=== PATIENT | female | born 1955 | race Caucasian/White ===

== ENCOUNTER 2020-08-27 21:16 | Inpatient (IN) ==
[2020-08-27] MEDS ORDERED: PIPERACILL/TAZOBAC CONSULT ACTIVE PRN (21:38)
[2020-08-27] MEDS ORDERED: PIPERACILLIN/TAZOBACTAM 4.5 GM/120 ML BAG IV ONE (21:38)
[2020-08-27] MEDS ORDERED: SODIUM CHLORIDE 0.9% 1000ML 1,000 ML IV SCH (21:45)
[2020-08-27 21:59] LABS: Basophils # (auto) 0.01 K/uL (0-0.2); Basophils % (auto) 0.1 %; Eosinophils % (auto) 2.8 %; Hemoglobin 8.5 g/dL (12.0-16.0); Immature Granulocytes # (auto) 0.02 K/uL (0.00-0.02); Immature Granulocytes % (auto) 0.2 %; Lymphocytes # (auto) 0.47 K/uL (1.2-3.4); Lymphocytes % (auto) 4.4 %; Mean Corpuscular Hemoglobin 31.5 pg (25-34); Mean Corpuscular Hgb Conc 32.7 g/dL (32-36); Mean Corpuscular Volume 96.3 fL (80-100); Mean Platelet Volume 10.2 fL (7.4-10.4); Monocytes # (auto) 0.27 K/uL (0.11-0.59); Monocytes % (auto) 2.5 %; Neutrophils # (auto) 9.63 K/uL (1.4-6.5); Platelet Count 263 K/uL (130-400); RDW Coefficient of Variation 19.3 % (11.5-14.5); RDW Standard Deviation 67.7 fL (36.4-46.3)
[2020-08-27 22:10] LABS: INR 1.2 (0.9-1.1); Partial Thromboplastin Time 26.6 Seconds (21.0-31.0); Prothrombin Time 11.6 Seconds (9.0-12.0)
[2020-08-27 22:24] LABS: Alanine Aminotransferase 30 U/L (12-78); Albumin Level 2.4 gm/dl (3.4-5.0); Aspartate Aminotransferase 33 U/L (15-37); BUN Creatinine Ratio 24.1 (10-20); Blood Urea Nitrogen 17 mg/dl (7-18); Calcium 9.4 mg/dl (8.5-10.1); Carbon Dioxide 26 mmol/L (21-32); Chloride 101 mmol/L (98-107); Creatinine Clr Calc Pharmacy 87.4 ml/min; Est GFR (African American) 104.3; Glucose 158 mg/dl (70-99); Magnesium 1.9 mg/dl (1.8-2.4); Potassium 3.5 mmol/L (3.5-5.1); Sodium 135 mmol/L (136-145)
[2020-08-27] MEDS ORDERED: VANCOMYCIN HCL 1,500 MG in SODIUM CHLORIDE 0.9% 500 ML IV ONE (22:27)
[2020-08-27] MEDS ORDERED: VANCOMYCIN CONSULT ACTIVE PRN (22:27)
[2020-08-27] MEDS ORDERED: VANCOMYCIN HCL MG in SODIUM CHLORIDE 0.9% 500 ML IV ONE (22:27)
[2020-08-27 22:29] LABS: Albumin Globulin Ratio 0.5 (0.9-2); Alkaline Phosphatase 90 U/L (45-117); Bilirubin,Total 0.5 mg/dl (0.2-1); Total Protein 7.4 gm/dl (6.4-8.2); Troponin I < 0.015 ng/ml (0-0.045)
--- NOTE | 2020-08-27 22:38 | Emergency Department Note ---
Impression & Plan Pneumonia, Breathlessness, Acute respiratory failure with hypoxia ED Provider Note Provider: Doni Markham MD DATE OF SERVICE: 08/27/2020 CHIEF COMPLAINT: Shortness of breath, weakness HISTORY OF PRESENT ILLNESS: Patient is a 65-year-old female history of diabetes, COPD, pneumonia with recent hospitalization, right upper lobe lung cancer currently on chemotherapy presenting today the ambulance from home due to worsening shortness of breath and weakness at home. Patient was here over the weekend and treated for pneumonia transition to Levaquin and has been home for approximately 2 days. Patient states she was sent home on 2 L of oxygen which has been using. Patient states she cannot walk across her living room and becomes very short of breath and certainly having any difficulty going up the stairs to the only bathroom in the house. No fevers reported. Denies falling or syncope. Denies significant chest pain. Denies fever. States she has a bit of a cough. Has been using 2 L but was informed by home health not to increase this oxygen flow at home. States she has been eating and drinking well. Denies significant swelling. Denies sick contact. Patient states she has been taking Levaquin prescribed at discharge. REVIEW OF SYSTEMS: A total of 10 review of systems was obtained and negative except as stated above in the HPI. PAST MEDICAL HISTORY: As noted above MEDICATIONS: Reviewed home medication list, not on anticoagulation SOCIAL HISTORY: Former smoker, lives at home by herself PHYSICAL EXAM: GENERAL: alert and oriented uncertain with nasal cannula oxygen in place Head: normocephalic and atraumatic EYES: No injection, discharge or icterus. NECK: Trachea midline. Supple. ENT: Mucous membranes pink and moist. LUNGS: Airway patent. No retractions. Breath sounds some diffuse wheeze and mild tachypnea HEART: Regular tachycardic rate and rhythm. No chest wall tenderness with a left upper chest wall port in place ABDOMEN: Soft and non-tender, without guarding or rebound. SKIN: Acyanotic, warm, dry, without rashes EXTREMITIES: Without swelling, tenderness or deformity NEUROLOGICAL: No focal deficits. No aphasia. No facial droop or slurred speech. EK bpm sinus tachycardia. No PVC or PAC. No ST segment elevation noted with some question of V2 V3 slight ST depression. Normal QTC. CONTINUOUS CARDIAC MONITORING: was ordered and showed a heart rate of 100s-120s bpm in sinus tachycardia 1 view chest x-ray shows per my interpretation continued and slightly worsened right greater than left pulmonary infiltrates in the parenchyma without free air under the diaphragm. No pneumothorax visualized. Patient's laboratory studies and imaging reviewed. Differential includes Infection, dehydration, metabolic abnormality, hypo/hyper glycemia, electrolyte disturbance, anemia, hypoxia, cardiac sources, intracerebral event, toxicologic, neurologic, as well as other pathologies. IMPRESSION/MEDICAL DECISION MAKING: Patient presents recently seen here for pneumonia history of lung cancer on chemotherapy worsening shortness of breath. Significantly hypoxic at home and hypoxic here on room air. EMS evidently found the patient to be at least below the 80s on her 2 L. Increased now on 4 L and satting in the low 90s with some improvement of symptoms. Febrile for EMS at 38.1 Celsius with a temperature 37.6 here. States has been eating and drinking normally. No significant focal deficit. Denies significant chest pain. Troponin is negative and EKG without STEMI although there is some question of some slight precordial ST depression. Given some IV fluid hydration given Zosyn and vancomycin given recent hospitalization and chest x-ray concerning for persistent but slightly worsened pneumonia right greater than left. CT scan was completed to look for possible PE given the increased oxygen usage and her tachycardia. Given a DuoNeb. Electrolytes and renal function appears stable. New Covid test was sent and negative today. VBG sent. Patient does not appear encephalopathic or altered today. Blood work a white count of 10.7 up from 7 anemia slightly improved today at 8.5. pH is 7.45 without CO2 retention noted. No significant renal dysfunction appreciated. Negative troponin. EKG question some slight precordial ST depression but again the patient not having active chest pain I doubt acute ACS at this time. Feeling improved with some increased nasal cannula oxygen at 4 L. Febrile for EMS and temperature of 37.6 Celsius here. X-ray per my interpretation shows continued and slightly worsened right greater than left pulmonary infiltrates concerning with increased ox requirement for possible worsening pneumonia process. Has been on Levaquin as an outpatient. Given a dose of vancomycin and Zosyn here for broad antimicrobial coverage given her worsening as an outpatient. Repeat Covid test and flu test was sent and negative. Procalcitonin ordered and not significantly elevated. Doubt sepsis. No evidence of liver dysfunction. Lactate not significantly elevated. Blood cultures were ordered. DuoNeb ordered. CT scan of the chest was completed exclude acute PE given increased ox requirements. Patient has been on outpatient chemotherapy she reports. Not neutropenic here. CT scan per stat read as below with right upper lung mass persistent without evidence of PE. Bilateral pulmonary opacities are noted again question pneumonia. Will cover broadly with vancomycin and Zosyn as she was improving on this while in the hospital. Covid test was negative as is influenza and RSV tonight. Given new increased oxygen requirement discussed the patient further evaluation here. Question if she has some worsening of her underlying pneumonia process while home on the Levaquin and again broadened antibiotics here today. Patient was feeling improved with increased oxygen here. Discussed with the hospitalist for further evaluation as an inpatient. DIAGNOSIS: Shortness of breath, hypoxia, pneumonia DISPOSITION: Hospitalist will evaluate Patient was agreeable with this plan. Critical Care I have personally spent 33 minutes of critical care time in the direct management of this patient. This includes bedside care, interpretation of diagnostic studies, and testing, discussion with consultants, patient, and family members, and other required patient management activities. These 33 minutes is in excess of all separately billable procedures. Preliminary Findings Only See Final Report For Complete Findings CTA CHEST: No pulmonary embolus. 5 cm mass lesion in the right upper hemithorax. Bilateral pulmonary opacities that could be from edema, pneumonia or other infiltrative process. Pulmonary emphysema/fibrosis. Mediastinal and hilar adenopathy. Mild cardiomegaly. Mild right pleural thickening and calcification Mild fatty liver. Splenomegaly. Port-A-Cath. Surgical clips in the abdomen. Mild elevation left diaphragm Radiologist: Fany Khan M.D. Study ready at 23:01 and initial results transmitted at 23:16 Past Med/Surg History Medical History (Updated 08/27/20 @ 22:43 by Doni Markham M.D.) Asthma Cardiac murmur Trace to mild sclerotic changes and regurgitation noted on 2019 echo COPD (chronic obstructive pulmonary disease) Diabetes mellitus, type 2 Exertional shortness of breath GERD (gastroesophageal reflux disease) Hyperlipidemia LAD (lymphadenopathy), mediastinal Seasonal allergies Squamous cell carcinoma of lung, stage III (10/30/19) UTI (urinary tract infection) FREQUENT Surgical History H/O wrist surgery LEFT History of ankle surgery RT (X2) History of bilateral tubal ligation History of bronchoscopy (10/30/19) EBUS History of cholecystectomy History of esophagogastroduodenoscopy (EGD) History of lung biopsy (04/01/20) History of tonsillectomy History of tooth extraction Family History Mother , Passed age 60 of CHF/Diabetes Complications Family history of diabetes mellitus Diabetes Father , Passed age 56 of CHF Diabetes Sister , Passed age 60 of SC Myocardial infarction Sister , Passed age 60 of diabetic/kidney complications No problems noted. Sister , Passed age 61 of SC Myocardial infarction Sister No problems noted. Sister No problems noted. Brother , Passed age 21 of accident No problems noted. Brother , Passed in 40's of SC No problems noted. Brother , Passed age 36 of unknown No problems noted. Daughter No problems noted. Daughter No problems noted. Daughter No problems noted. 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 Feels Safe at Home: Yes Assistive Devices: None Allergies Allergies Allergy/AdvReac Type Severity Reaction Status Date / Time cephalexin Allergy Intermediate ITCHING Verified 08/22/20 00:43 Home Meds Home Medications Medication Instructions Recorded Confirmed albuterol sulfate 1 inh INHALATION QID PRN 10/28/19 08/27/20 cholecalciferol (vitamin D3) 5,000 unit PO QAM 10/28/19 08/27/20 [Vitamin D3] fluticasone propion-salmeterol 1 inh INHALATION BID 04/01/20 08/27/20 [Advair Diskus] atorvastatin 10 mg tablet 10 mg PO DAILY 06/15/20 08/27/20 ondansetron HCl 8 mg tablet 8 mg PO Q8H 06/22/20 08/27/20 prochlorperazine maleate 10 mg 10 mg PO Q6H PRN 06/22/20 08/27/20 tablet omeprazole 20 mg tablet,delayed 20 mg PO DAILY 07/13/20 08/27/20 release Flovent HFA 1 puff INHALATION BID PRN 08/22/20 08/27/20 metformin 500 mg PO DAILY 08/27/20 08/27/20 Previous Rx's Medication Instructions Recorded Lactobacillus acidoph-L.bulgar 1 tab PO BID #30 tab 08/25/20 [Lactinex] ferrous sulfate 325 mg PO BID 30 Days #60 tab 08/25/20 levalbuterol HCl 1.25 mg NEB Q4H PRN 30 Days #100 ea 08/25/20 levofloxacin 750 mg PO DAILY@1100 5 Days #5 tab 08/25/20 Results & Data (ED) Vital Signs Vital Signs - 24 hr 08/27/20 21:26 08/27/20 21:51 08/27/20 22:10 Temperature 37.6 C H Temperature Source Oral Pulse Rate 125 H Pulse Rate [Right Apical] Respiratory Rate 28 H 24 Respiratory Effort / Characteristics SOB on Exertion Non-Labored Respiratory Depth Shallow Blood Pressure 112/63 Blood Pressure Mean 79 Pulse Oximetry 95 91 95 Oxygen Delivery Method Nasal Cannula Nasal Cannula Nasal Cannula Oxygen Flow Rate 4 4 4 Sepsis Recent Fever Within 48 Hours Yes Sepsis New/Unexplained Change in Mental Status N/A Sepsis Action Taken by Nursing No Action Required Oxygen Flow Rate - Titration 4 Pulse Oximetry Post Tiitration 95 08/27/20 22:33 08/27/20 23:01 08/27/20 23:05 Temperature Temperature Source Pulse Rate Pulse Rate [Right Apical] 124 H Respiratory Rate 24 20 34 H Respiratory Effort / Characteristics Non-Labored Spontaneous Respiratory Depth Blood Pressure Blood Pressure Mean Pulse Oximetry 96 96 78 L Oxygen Delivery Method Nasal Cannula Nasal Cannula Room Air Oxygen Flow Rate 4 2 Sepsis Recent Fever Within 48 Hours Sepsis New/Unexplained Change in Mental Status Sepsis Action Taken by Nursing Oxygen Flow Rate - Titration Pulse Oximetry Post Tiitration 08/27/20 23:50 Temperature 37.1 C Temperature Source Oral Pulse Rate Pulse Rate [Right Apical] Respiratory Rate Respiratory Effort / Characteristics Respiratory Depth Blood Pressure Blood Pressure Mean Pulse Oximetry Oxygen Delivery Method Oxygen Flow Rate Sepsis Recent Fever Within 48 Hours Sepsis New/Unexplained Change in Mental Status Sepsis Action Taken by Nursing Oxygen Flow Rate - Titration Pulse Oximetry Post Tiitration Laboratory Data Result diagrams: 08/27/20 21:45 08/27/20 21:45 Lab Results 08/27/20 08/27/20 08/27/20 Range/Units 21:45 21:45 21:45 WBC 10.70 (4.8-10.8) K/uL RBC 2.70 L (4.2-5.4) M/uL Hgb 8.5 L (12.0-16.0) g/dL Hct 26.0 L (37-47) % MCV 96.3 (80-100) fL MCH 31.5 (25-34) pg MCHC 32.7 (32-36) g/dL RDW Std Deviation 67.7 H (36.4-46.3) fL RDW Coeff of Teresa 19.3 H (11.5-14.5) % Plt Count 263 (130-400) K/uL MPV 10.2 (7.4-10.4) fL Immature Gran % (Auto) 0.2 % Neut % (Auto) 90.0 % Lymph % (Auto) 4.4 % Dougherty % (Auto) 2.5 % Eos % (Auto) 2.8 % Baso % (Auto) 0.1 % Neut # (Auto) 9.63 H (1.4-6.5) K/uL Lymph # (Auto) 0.47 L (1.2-3.4) K/uL Dougherty # (Auto) 0.27 (0.11-0.59) K/uL Eos # (Auto) 0.30 (0-0.5) K/uL Baso # (Auto) 0.01 (0-0.2) K/uL Immature Gran # (Auto) 0.02 (0.00-0.02) K/uL PT 11.6 (9.0-12.0) Seconds INR 1.2 H (0.9-1.1) APTT 26.6 (21.0-31.0) Seconds PTT Ratio 1.0 VBG pH (7.36-7.41) VBG pCO2 (38-50) mmHg VBG pO2 mmHg VBG HCO3 mmol/L VBG O2 Saturation % VBG Base Excess mEq/L Barometric Pressure mm/Hg Sodium 135 L (136-145) mmol/L Potassium 3.5 (3.5-5.1) mmol/L Chloride 101 (98-107) mmol/L Carbon Dioxide 26 (21-32) mmol/L Anion Gap 8.0 (3-11) BUN 17 (7-18) mg/dl Creatinine 0.71 (0.6-1.2) mg/dl Est Cr Clr Drug Dosing 87.4 ml/min Est GFR ( Amer) 104.3 Est GFR (Non-Af Amer) 90.0 BUN/Creatinine Ratio 24.1 H (10-20) Glucose 158 H (70-99) mg/dl Lactate (0.4-2.0) mmol/L Calcium 9.4 (8.5-10.1) mg/dl Magnesium 1.9 (1.8-2.4) mg/dl Total Bilirubin 0.5 (0.2-1) mg/dl AST 33 (15-37) U/L ALT 30 (12-78) U/L Alkaline Phosphatase 90 (45-117) U/L Troponin I < 0.015 (0-0.045) ng/ml NT-Pro-B Natriuret Pep 213 (0-900) pg/ml Total Protein 7.4 (6.4-8.2) gm/dl Albumin 2.4 L (3.4-5.0) gm/dl Globulin 5.0 H (2.5-4.0) gm/dl Albumin/Globulin Ratio 0.5 L (0.9-2) Procalcitonin (0-0.5) ng/ml COVID-19 Eval Order SARS-CoV-2 (PCR) (Negative) Influenza Type A (PCR) (Neg) Influenza Type B (PCR) (Neg) RSV (RT-PCR) (Neg) 08/27/20 08/27/20 08/27/20 Range/Units 21:45 22:15 22:15 WBC (4.8-10.8) K/uL RBC (4.2-5.4) M/uL Hgb (12.0-16.0) g/dL Hct (37-47) % MCV (80-100) fL MCH (25-34) pg MCHC (32-36) g/dL RDW Std Deviation (36.4-46.3) fL RDW Coeff of Teresa (11.5-14.5) % Plt Count (130-400) K/uL MPV (7.4-10.4) fL Immature Gran % (Auto) % Neut % (Auto) % Lymph % (Auto) % Dougherty % (Auto) % Eos % (Auto) % Baso % (Auto) % Neut # (Auto) (1.4-6.5) K/uL Lymph # (Auto) (1.2-3.4) K/uL Dougherty # (Auto) (0.11-0.59) K/uL Eos # (Auto) (0-0.5) K/uL Baso # (Auto) (0-0.2) K/uL Immature Gran # (Auto) (0.00-0.02) K/uL PT (9.0-12.0) Seconds INR (0.9-1.1) APTT (21.0-31.0) Seconds PTT Ratio VBG pH (7.36-7.41) VBG pCO2 (38-50) mmHg VBG pO2 mmHg VBG HCO3 mmol/L VBG O2 Saturation % VBG Base Excess mEq/L Barometric Pressure mm/Hg Sodium (136-145) mmol/L Potassium (3.5-5.1) mmol/L Chloride (98-107) mmol/L Carbon Dioxide (21-32) mmol/L Anion Gap (3-11) BUN (7-18) mg/dl Creatinine (0.6-1.2) mg/dl Est Cr Clr Drug Dosing ml/min Est GFR ( Amer) Est GFR (Non-Af Amer) BUN/Creatinine Ratio (10-20) Glucose (70-99) mg/dl Lactate 1.7 (0.4-2.0) mmol/L Calcium (8.5-10.1) mg/dl Magnesium (1.8-2.4) mg/dl Total Bilirubin (0.2-1) mg/dl AST (15-37) U/L ALT (12-78) U/L Alkaline Phosphatase (45-117) U/L Troponin I (0-0.045) ng/ml NT-Pro-B Natriuret Pep (0-900) pg/ml Total Protein (6.4-8.2) gm/dl Albumin (3.4-5.0) gm/dl Globulin (2.5-4.0) gm/dl Albumin/Globulin Ratio (0.9-2) Procalcitonin (0-0.5) ng/ml COVID-19 Eval Order CovFluRsv at [facility] SARS-CoV-2 (PCR) NEGATIVE (Negative) Influenza Type A (PCR) Negative (Neg) Influenza Type B (PCR) Negative (Neg) RSV (RT-PCR) Negative (Neg) 08/27/20 08/27/20 Range/Units 22:28 22:28 WBC (4.8-10.8) K/uL RBC (4.2-5.4) M/uL Hgb (12.0-16.0) g/dL Hct (37-47) % MCV (80-100) fL MCH (25-34) pg MCHC (32-36) g/dL RDW Std Deviation (36.4-46.3) fL RDW Coeff of Teresa (11.5-14.5) % Plt Count (130-400) K/uL MPV (7.4-10.4) fL Immature Gran % (Auto) % Neut % (Auto) % Lymph % (Auto) % Dougherty % (Auto) % Eos % (Auto) % Baso % (Auto) % Neut # (Auto) (1.4-6.5) K/uL Lymph # (Auto) (1.2-3.4) K/uL Dougherty # (Auto) (0.11-0.59) K/uL Eos # (Auto) (0-0.5) K/uL Baso # (Auto) (0-0.2) K/uL Immature Gran # (Auto) (0.00-0.02) K/uL PT (9.0-12.0) Seconds INR (0.9-1.1) APTT (21.0-31.0) Seconds PTT Ratio VBG pH 7.45 H (7.36-7.41) VBG pCO2 42 (38-50) mmHg VBG pO2 27 mmHg VBG HCO3 28 mmol/L VBG O2 Saturation < 60.0 % VBG Base Excess 3.6 mEq/L Barometric Pressure 735.2 mm/Hg Sodium (136-145) mmol/L Potassium (3.5-5.1) mmol/L Chloride (98-107) mmol/L Carbon Dioxide (21-32) mmol/L Anion Gap (3-11) BUN (7-18) mg/dl Creatinine (0.6-1.2) mg/dl Est Cr Clr Drug Dosing ml/min Est GFR ( Amer) Est GFR (Non-Af Amer) BUN/Creatinine Ratio (10-20) Glucose (70-99) mg/dl Lactate (0.4-2.0) mmol/L Calcium (8.5-10.1) mg/dl Magnesium (1.8-2.4) mg/dl Total Bilirubin (0.2-1) mg/dl AST (15-37) U/L ALT (12-78) U/L Alkaline Phosphatase (45-117) U/L Troponin I (0-0.045) ng/ml NT-Pro-B Natriuret Pep (0-900) pg/ml Total Protein (6.4-8.2) gm/dl Albumin (3.4-5.0) gm/dl Globulin (2.5-4.0) gm/dl Albumin/Globulin Ratio (0.9-2) Procalcitonin 0.22 (0-0.5) ng/ml COVID-19 Eval Order SARS-CoV-2 (PCR) (Negative) Influenza Type A (PCR) (Neg) Influenza Type B (PCR) (Neg) RSV (RT-PCR) (Neg) Administered Medications Vancomycin HCl 1,500 mg/ (Sodium Chloride) 530 mls @ 200 mls/hr IV NOW ONE Stop: 08/28/20 01:05 Last Admin: 08/27/20 23:07 Dose: 200 mls/hr Documented by: [id number] Magnesium Sulfate/Dextrose (Magnesium Sulfate / D5w) 1 gm in 100 mls @ 50 mls/hr IV ONE STA Stop: 08/28/20 01:53 Last Admin: 08/28/20 00:21 Dose: 50 mls/hr Documented by: [id number] Discontinued Medications Acetaminophen (Acetaminophen 500 Mg Tab) 1,000 mg PO NOW STA Stop: 08/27/20 23:40 Last Admin: 08/27/20 23:50 Dose: 1,000 mg Documented by: [id number] Albuterol (Albut/Ipratrop 3mg/0.5mg Neb 3 Ml Vial) 3 ml NEB NOW STA Stop: 08/27/20 22:40 Last Admin: 08/27/20 23:05 Dose: 3 ml Documented by: [id number] Sodium Chloride (Nss 1000ml) 1,000 mls @ 999 mls/hr IV .[id number] ROSANNE Stop: 08/27/20 22:45 Last Infusion: 08/28/20 00:13 Dose: 0 mls/hr Documented by: [id number] Admin: 08/27/20 22:31 Dose: 999 mls/hr Documented by: [id number] Piperacillin Sod/Tazobactam Sod (Zosyn) 4.5 gm in 120 mls @ 240 mls/hr IV NOW ONE Stop: 08/27/20 22:07 Last Infusion: 08/27/20 23:08 Dose: 0 mls/hr Documented by: [id number] Admin: 08/27/20 22:31 Dose: 240 mls/hr Documented by: [id number] Ioversol (Optiray 320 125ml) 114 ml IV ONCE ONE Stop: 08/27/20 22:52 Last Admin: 08/27/20 22:51 Dose: 114 ml Documented by: [id number] Methylprednisolone (Methylprednisolone 40 Mg/Ml Vial) 40 mg IV ONE STA Stop: 08/27/20 23:58 Last Admin: 08/28/20 00:21 Dose: 40 mg Documented by: [id number] Potassium Chloride (Potassium Chloride 10 Meq Tabcr) 50 meq PO NOW STA Stop: 08/27/20 23:52 Last Admin: 08/28/20 00:21 Dose: 50 meq Documented by: [id number] Discharge Plan Visit Data Chief Complaint: Shortness of Breath/Dyspnea Stated Complaint: SOB ED Provider: Doni Markham Discharge Problem: Pneumonia, Breathlessness, Acute respiratory failure with hypoxia Patient Disposition: Being Evaluated by Hospitalist Forms Stand Alone Forms: My [facility] Prescriptions Prescriptions: No Action atorvastatin 10 mg tablet 10 mg PO DAILY RF: 0 ondansetron HCl 8 mg tablet 8 mg PO Q8H RF: 0 prochlorperazine maleate [Compazine] 10 mg tablet 10 mg PO Q6H PRN (Reason: Nausea) RF: 0 omeprazole 20 mg tablet,delayed release (DR/EC) 20 mg PO DAILY RF: 0 albuterol sulfate 90 mcg/actuation Hfa Aerosol Inhaler 1 inh INHALATION QID PRN (Reason: Shortness Of Breath Or Wheezing) RF: 0 cholecalciferol (vitamin D3) [Vitamin D3] 125 mcg (5,000 unit) Tablet 5,000 unit PO QAM RF: 0 fluticasone propion-salmeterol [Advair Diskus] 500-50 mcg/dose Blister With Device 1 inh INHALATION BID RF: 0 Flovent HFA 110 mcg/actuation HFA aerosol inhaler 1 puff INHALATION BID PRN (Reason: asthma) RF: 0 levofloxacin 750 mg Tablet 750 mg PO DAILY@1100 5 Days Qty: 5 RF: 0 ferrous sulfate 325 mg (65 mg iron) Tablet,Delayed Release (Dr/Ec) 325 mg PO BID 30 Days Qty: 60 RF: 0 levalbuterol HCl 1.25 mg/0.5 mL Solution For Nebulization 1.25 mg NEB Q4H PRN (Reason: shortness of breath or wheezing) 30 Days Qty: 100 RF: 0 Lactinex 1 million cell tablet,chewable 1 tab PO BID Qty: 30 RF: 0 metformin 500 mg tablet extended release 24 hr 500 mg PO DAILY RF: 0 Referrals Referrals: Antonio Diallo [Primary Care Provider] - Discharge Problem: Pneumonia Qualifiers: Pneumonia type: due to unspecified organism Laterality: bilateral Lung location: unspecified part of lung Qualified Code(s): J18.9 - Pneumonia, unspecified organism
[2020-08-27] MEDS ORDERED: ALBUT/IPRATROP 3MG/0.5MG NEB 3 ML VIAL NEB STA (22:39)
[2020-08-27 22:42] LABS: Base Excess VBG 3.6 mEq/L; HCO3 VBG 28 mmol/L; PCO2 VBG 42 mmHg (38-50); PO2 VBG 27 mmHg; pH VBG 7.45 (7.36-7.41)
[2020-08-27 22:44] LABS: Oxygen Saturation VBG < 60.0 %
[2020-08-27] MEDS ORDERED: OPTIRAY 320 125ml IV ONE (22:51)
[2020-08-27 23:02] LABS: Influenza A virus by PCR Negative (Neg); Influenza B virus by PCR Negative (Neg); RSV by PCR Negative (Neg); SARS CoV2 RNA(COVID-19) InHosp NEGATIVE (Negative)
[2020-08-27] MEDS ORDERED: ACETAMINOPHEN 500 MG TAB PO STA (23:39)
[2020-08-27] MEDS ORDERED: LEVALBUTEROL 1.25MG/0.5ML NEB INH SCH (23:45)
[2020-08-27] MEDS ORDERED: IPRATROPIUM BROMIDE NEB SOLN 0.02% 2.5 ML VIAL INH SCH (23:45)
[2020-08-27] MEDS ORDERED: XOPENEX/ATROVENT 1.25mg/0.5MG NEB COMBO NEB STA (23:50)
[2020-08-27] MEDS ORDERED: methylPREDNISolone 40 MG in SYRINGE 0 ML IV STA (23:50)
[2020-08-27] MEDS ORDERED: POTASSIUM CHLORIDE 10 MEQ TABCR PO STA (23:51)
[2020-08-27] MEDS ORDERED: MAGNESIUM SULFATE / D5W 1 GM/100 ML BAG IV STA (23:54)
[2020-08-28 00:36] LABS: NT Pro B Type Natriuretic Pept 213 pg/ml (0-900)
[2020-08-28] MEDS ORDERED: POTASSIUM CHLORIDE 40 MEQ in SODIUM CHLORIDE 0.9% 1000ML 1,000 ML IV STA (00:50)
--- NOTE | 2020-08-28 00:52 | History & Physical Report ---
Date of Service August 28, 2020 Assessment & Plan (1) Acute respiratory failure with hypoxia: Acute on chronic Secondary to COPD exacerbation secondary to HCAP, protracted disease Recent confinement for bilateral pneumonia status post Levaquin Rx Severe sepsis in an immunocompromised patient SIRS plus hypoxemia secondary to above hx NSCLC sp chemoradiation DM2 on oral medications, well-controlled as of recent hemoglobin A1c of 6.22 August 2020 hyperlipidemia on statin Rx chronic anemia, hemoglobin better than last baseline past tobacco abuse Medical telemetry Supplemental O2 Stat Solu-Medrol followed by prednisone course Nebs RTC CS, Doxycycline, Cefepime Pulmonary consult if without improvement Basal insulin, ISS BG goal [id number], carb count coverage PT OT eval given readmission DVT prophylaxis. Lovenox subcu DNR Total critical time was 40 minutes. Text document was generated using [employer] voice recognition software. It may contain grammatical or spelling errors. Kindly contact undersigned for clarification of any documentation item in question. History of Present Illness Chief Complaint: Shortness of breath, weakness Primary Care Provider: Antonio Diallo History obtained from patient, family, and records. Medical history significant for COPD/asthma, hyperlipidemia, NSCLC sp chemoradiation, DM2 on oral medications, chronic anemia (recent baseline hemoglobin of 7), past tobacco abuse. Last confinement August 22-2020 for sepsis secondary to bibasilar pneumonia. Vancomycin and Zosyn later discontinued given no growth on CS. Patient discharged on Levaquin course. Home O2 arrangements to be made given hypoxemia during confinement as per patient. Patient noted exertional shortness of breath upon arriving home without chest pain. Cough symptoms the same occasionally productive of junky sputum. Denies aspiration. Denies fluid retention. Worsening symptoms despite completion of antibiotic Rx. At the ER, O2 sats noted to be 70s at some point. Patient received vancomycin and Zosyn for sepsis. Medical History as above Surgical History : BTL, cholecystectomy, tonsillectomy/adenoidectomy, A port Family History : DM, heart disease Personal/Social history : Past tobacco abuse, no EtOH intake, prior factory work Allergies Allergy/AdvReac Type Severity Reaction Status Date / Time cephalexin Allergy Intermediate ITCHING Verified 08/22/20 00:43 Home Medications Medication Instructions Recorded Confirmed Type albuterol sulfate 1 inh INHALATION QID PRN 10/28/19 08/27/20 History cholecalciferol (vitamin D3) 5,000 unit PO QAM 10/28/19 08/27/20 History [Vitamin D3] fluticasone propion-salmeterol 1 inh INHALATION BID 04/01/20 08/27/20 History [Advair Diskus] atorvastatin 10 mg tablet 10 mg PO DAILY 06/15/20 08/27/20 History ondansetron HCl 8 mg tablet 8 mg PO Q8H 06/22/20 08/27/20 History prochlorperazine maleate 10 mg 10 mg PO Q6H PRN 06/22/20 08/27/20 History tablet omeprazole 20 mg tablet,delayed 20 mg PO DAILY 07/13/20 08/27/20 History release Flovent HFA 1 puff INHALATION BID PRN 08/22/20 08/27/20 History Lactobacillus acidoph-L.bulgar 1 tab PO BID #30 tab 08/25/20 08/27/20 Rx [Lactinex] ferrous sulfate 325 mg PO BID 30 Days #60 tab 08/25/20 08/27/20 Rx levalbuterol HCl 1.25 mg NEB Q4H PRN 30 Days #100 ea 08/25/20 08/27/20 Rx levofloxacin 750 mg PO DAILY@1100 5 Days #5 tab 08/25/20 08/27/20 Rx metformin 500 mg PO DAILY 08/27/20 08/27/20 History Past Med/Surg History Medical History (Updated 08/28/20 @ 04:41 by Enmanuel Grant MD) Asthma Cardiac murmur Trace to mild sclerotic changes and regurgitation noted on 2019 echo COPD (chronic obstructive pulmonary disease) Diabetes mellitus, type 2 Exertional shortness of breath GERD (gastroesophageal reflux disease) Hyperlipidemia LAD (lymphadenopathy), mediastinal Seasonal allergies Squamous cell carcinoma of lung, stage III (10/30/19) UTI (urinary tract infection) FREQUENT Surgical History H/O wrist surgery LEFT History of ankle surgery RT (X2) History of bilateral tubal ligation History of bronchoscopy (10/30/19) EBUS History of cholecystectomy History of esophagogastroduodenoscopy (EGD) History of lung biopsy (04/01/20) History of tonsillectomy History of tooth extraction Family History Mother , Passed age 60 of CHF/Diabetes Complications Family history of diabetes mellitus Diabetes Father , Passed age 56 of CHF Diabetes Sister , Passed age 60 of [place] Myocardial infarction Sister , Passed age 60 of diabetic/kidney complications No problems noted. Sister , Passed age 61 of [place] Myocardial infarction Sister No problems noted. Sister No problems noted. Brother , Passed age 21 of accident No problems noted. Brother , Passed in 40's of [place] No problems noted. Brother , Passed age 36 of unknown No problems noted. Daughter No problems noted. Daughter No problems noted. Daughter No problems noted. Grandfather (Maternal) Diabetes Grandmother (Maternal) Diabetes Other Asthma Heart disease Social History (Updated 04/29/20 @ 14:42 by Marilee Simms RN) Smoking Status: Former smoker Tobacco Type: Cigarettes packs per day: 1.5; Years Smoked: 36; Cigarettes Per Day: 1.5 pack/day; Second Hand Exposure: No; Do You Dip or Chew Tobacco: No; Tobacco Cessation Education Requested by Patient: No Hx Alcohol Use: Yes Alcohol type: beer Hx Substance Use: No Preferred Language: Spanish Communication Ability: Effective Visual Impairment: Limited Hearing Ability: Normal Vice President Planning Required: No Beliefs That Will Affect Care: None Current Living Situation: Alone Current Living Situation Comment: Daughter Nguyen comes by the house everyday current occupational status: retired 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 Other Information That Helps Us Care for You: No Feels Safe at Home: Yes Safety Concerns: Feels Safe At This Time Assistive Devices: Oxygen - Continuous Assistive Devices Comment: Patient was recently discharged from this hospital on 2L nasal cannula Review of Systems Review of Systems: As per HPI, all 10 systems reviewed, all other ROS negative Physical Exam Physical Exam: GENERAL: Slightly uncomfortable, minimal respiratory distress SKIN: Pallor , warm HEENT: Pale palpebral conjunctivae, no ptosis, dry buccal mucosa, nasal cannula in place NECK : Supple, no tenderness CHEST : A port left chest wall, decreased breath sounds, no tenderness HEART : Tachycardic, systolic murmur ABDOMEN: Some distention, nontender EXTREMITIES : No LE swelling/tenderness, no other conspicuous deformities noted NEUROLOGIC : Coherent, no facial asymmetry, no other gross focality Results & Data Results & Data ([facility]) Vital Signs (Past 12 Hours) Vital Signs Temp Pulse Pulse Resp BP Pulse Ox 08/27/20 23:50 37.1 C 08/27/20 23:05 124 H 34 H 78 L 08/27/20 23:01 20 96 08/27/20 22:33 24 96 08/27/20 22:10 24 95 08/27/20 21:51 91 08/27/20 21:26 37.6 C H 125 H 28 H 112/63 95 Laboratory Results Laboratory Results WBC 10.70 K/uL (4.8-10.8) 08/27/20 21:45 RBC 2.70 M/uL (4.2-5.4) L 08/27/20 21:45 Hgb 8.5 g/dL (12.0-16.0) L 08/27/20 21:45 Hct 26.0 % (37-47) L 08/27/20 21:45 MCV 96.3 fL (80-100) 08/27/20 21:45 MCH 31.5 pg (25-34) 08/27/20 21:45 MCHC 32.7 g/dL (32-36) 08/27/20 21:45 RDW Std Deviation 67.7 fL (36.4-46.3) H 08/27/20 21:45 RDW Coeff of Tereas 19.3 % (11.5-14.5) H 08/27/20 21:45 Plt Count 263 K/uL (130-400) 08/27/20 21:45 MPV 10.2 fL (7.4-10.4) 08/27/20 21:45 Immature Gran % (Auto) 0.2 % 08/27/20 21:45 Neut % (Auto) 90.0 % 08/27/20 21:45 Lymph % (Auto) 4.4 % 08/27/20 21:45 [place] % (Auto) 2.5 % 08/27/20 21:45 Eos % (Auto) 2.8 % 08/27/20 21:45 Baso % (Auto) 0.1 % 08/27/20 21:45 Neut # (Auto) 9.63 K/uL (1.4-6.5) H 08/27/20 21:45 Lymph # (Auto) 0.47 K/uL (1.2-3.4) L 08/27/20 21:45 [place] # (Auto) 0.27 K/uL (0.11-0.59) 08/27/20 21:45 Eos # (Auto) 0.30 K/uL (0-0.5) 08/27/20 21:45 Baso # (Auto) 0.01 K/uL (0-0.2) 08/27/20 21:45 Immature Gran # (Auto) 0.02 K/uL (0.00-0.02) 08/27/20 21:45 PT 11.6 Seconds (9.0-12.0) 08/27/20 21:45 INR 1.2 (0.9-1.1) H 08/27/20:45 APTT 26.6 Seconds (21.0-31.0) 08/27/20:45 PTT Ratio 1.0 08/27/20 21:45 VBG pH 7.45 (7.36-7.41) H 08/27/20 22:28 VBG pCO2 42 mmHg (38-50) 08/27/20 22:28 VBG pO2 27 mmHg 08/27/20 22:28 VBG HCO3 28 mmol/L 08/27/20 22:28 VBG O2 Saturation < 60.0 % 08/27/20 22:28 VBG Base Excess 3.6 mEq/L 08/27/20 22: Barometric Pressure 735.2 mm/Hg 08/27/20 22: Sodium 135 mmol/L (136-145) L 08/27/20 21:45 Potassium 3.5 mmol/L (3.5-5.1) 08/27/20 21:45 Chloride 101 mmol/L (98-107) 08/27/20 21:45 Carbon Dioxide 26 mmol/L (21-32) 08/27/20 21:45 Anion Gap 8.0 (3-11) 08/27/20 21:45 BUN 17 mg/dl (7-18) 08/27/20 21:45 Creatinine 0.71 mg/dl (0.6-1.2) 08/27/20 21:45 Est Cr Clr Drug Dosing 87.4 ml/min 08/27/20 21:45 Est GFR ( Amer) 104.3 08/27/20 21:45 Est GFR (Non-Af Amer) 90.0 08/27/20 21:45 BUN/Creatinine Ratio 24.1 (10-20) H 08/27/20 21:45 Glucose 158 mg/dl (70-99) H 08/27/20 21:45 Lactate 1.7 mmol/L (0.4-2.0) 08/27/20 21:45 Calcium 9.4 mg/dl (8.5-10.1) 08/27/20 21:45 Magnesium 1.9 mg/dl (1.8-2.4) 08/27/20 21:45 Total Bilirubin 0.5 mg/dl (0.2-1) 08/27/20 21:45 AST 33 U/L (15-37) 08/27/20 21:45 ALT 30 U/L (12-78) 08/27/20 21:45 Alkaline Phosphatase 90 U/L (45-117) 08/27/20 21:45 Troponin I < 0.015 ng/ml (0-0.045) 08/27/20 21:45 NT-Pro-B Natriuret Pep 213 pg/ml (0-900) 08/27/20 21:45 Total Protein 7.4 gm/dl (6.4-8.2) 08/27/20 21:45 Albumin 2.4 gm/dl (3.4-5.0) L 08/27/20 21:45 Globulin 5.0 gm/dl (2.5-4.0) H 08/27/20 21:45 Albumin/Globulin Ratio 0.5 (0.9-2) L 08/27/20 21:45 Procalcitonin 0.22 ng/ml (0-0.5) 08/27/20 22:28 COVID-19 Eval Order CovFluRsv at [facility] 08/27/20 22:15 SARS-CoV-2 (PCR) NEGATIVE (Negative) 08/27/20 22:15 Influenza Type A (PCR) Negative (Neg) 08/27/20 22:15 Influenza Type B (PCR) Negative (Neg) 08/27/20 22:15 RSV (RT-PCR) Negative (Neg) 08/27/20 22:[address] chest initial read: No pulmonary embolus. 5 cm mass lesion right upper hemithorax. Bilateral pulmonary opacities could be from edema, pneumonia or other infiltrative process. Pulmonary emphysema/fibrosis. Mediastinal/hilar adenopathy. Cardiomegaly. Mild right pleural thickening calcification. Mild fatty liver. Splenomegaly. Port-A-Cath. EKG as per my interpretation: Rate 105, sinus tachycardia, normal axis, T wave abnormalities inferior leads
[2020-08-28] MEDS ORDERED: XOPENEX/ATROVENT 1.25mg/0.5MG NEB COMBO NEB SCH (02:07)
[2020-08-28] MEDS ORDERED: PROMETHAZINE HCL 12.5 MG in SODIUM CHLORIDE 0.9% 50 ML IV PRN (02:07)
[2020-08-28] MEDS ORDERED: traMADol HCL 50 MG TABLET PO PRN (02:07)
[2020-08-28] MEDS ORDERED: GLUCOSE 40% GEL 15 GM TUBE PO PRN (02:07)
[2020-08-28] MEDS ORDERED: DEXTROSE 50% 50 ML SYRINGE IV PRN (02:07)
[2020-08-28] MEDS ORDERED: INSULIN GLARGINE SOLOSTAR 100 UNITS/ML 3 ML PEN SC STA (02:07)
[2020-08-28] MEDS ORDERED: CARBOHYDRATES FOR HYPOGLYCEMIA PO PRN (02:07)
[2020-08-28] MEDS ORDERED: GLUCOSE 10 TABS/TUBE PO PRN (02:07)
[2020-08-28] MEDS ORDERED: ACETAMINOPHEN 325 MG TAB PO PRN (02:07)
[2020-08-28] MEDS ORDERED: GLUCAGON FOR INJ 1 MG VIAL SQ PRN (02:07)
[2020-08-28] MEDS ORDERED: MAGNESIUM SULFATE / D5W 1 GM/100 ML BAG IV SCH (02:30)
[2020-08-28] MEDS ORDERED: CEFEPIME 2,000 MG in SYRINGE 0 ML IV ONE (02:30)
[2020-08-28] MEDS: INSULIN ASPART 100 UNITS/ML 3 ML PEN SC SCH ×5 (04:19→22:57)
[2020-08-28 06:04] LABS: Eosinophils # (auto) 0.04 K/uL (0-0.5); Eosinophils % (auto) 0.5 %; Hematocrit (blood only) 24.2 % (37-47); Hemoglobin 7.6 g/dL (12.0-16.0); Immature Granulocytes # (auto) 0.02 K/uL (0.00-0.02); Immature Granulocytes % (auto) 0.3 %; Lymphocytes # (auto) 0.14 K/uL (1.2-3.4); Lymphocytes % (auto) 1.8 %; Mean Corpuscular Hemoglobin 30.6 pg (25-34); Mean Corpuscular Hgb Conc 31.4 g/dL (32-36); Mean Corpuscular Volume 97.6 fL (80-100); Mean Platelet Volume 10.2 fL (7.4-10.4); Monocytes # (auto) 0.11 K/uL (0.11-0.59); Monocytes % (auto) 1.4 %; Neutrophils # (auto) 7.47 K/uL (1.4-6.5); Platelet Count 212 K/uL (130-400); RDW Coefficient of Variation 19.4 % (11.5-14.5); RDW Standard Deviation 69.3 fL (36.4-46.3); Red Blood Count 2.48 M/uL (4.2-5.4); White Blood Count 7.78 K/uL (4.8-10.8)
[2020-08-28 06:29] LABS: Anisocytosis Present
[2020-08-28 06:42] LABS: BUN Creatinine Ratio 19.9 (10-20); Calcium 8.6 mg/dl (8.5-10.1); Creatinine Clr Calc Pharmacy 101.7 ml/min; Est GFR (African American) 111.6; Est GFR (Non-African American) 96.3; Potassium 4.6 mmol/L (3.5-5.1)
--- NOTE | 2020-08-28 07:17 | XRay Report ---
XR chest 1V portable CLINICAL HISTORY: SEPSIS COMPARISON STUDY: 08/25/2020 FINDINGS: The cardiac and mediastinal contours remain stable. There is a left-sided A-Port catheter p resent. There is mild elevation left hemidiaphragm. There are persistent bilateral asymmetric pulmona ry opacities with slight progression on the right. A right apical mass is again visualized. IMPRESSION: 1. Right apical mass 2. Bilateral asymmetric pulmonary opacities with slight progression on the right ACT 112: Negative or not required by law. Asymmetric right lung Electronically signed by: Kanu Burciaga M.D. 08/28/2020 7:16 AM
[2020-08-28] MEDS: IPRATROPIUM BROMIDE NEB SOLN 0.02% 2.5 ML VIAL INH SCH ×3 (07:26→19:17)
[2020-08-28] MEDS: LEVALBUTEROL 1.25MG/0.5ML NEB INH SCH ×3 (07:27→19:16)
--- NOTE | 2020-08-28 07:52 | CT Scan Report ---
CT ANGIOGRAM OF THE CHEST CLINICAL HISTORY: PE worsened hypoxia COMPARISON STUDY: 08/22/2020 TECHNIQUE: Following the IV administration of 114 mL of Optiray-320, CT angiogram of the thorax was p erformed from the thoracic inlet to the lung bases utilizing the pulmonary embolus protocol. Images a re reviewed in the axial, sagittal, and coronal planes. IV contrast was administered without complica tion. MIP imaging was performed. A dose lowering technique was utilized adhering to the principles o f ALARA. CT DOSE: 340.95 mGy.cm FINDINGS: There are mildly enlarged mediastinal and right hilar lymph nodes. There was no evidence of thoracic aortic dilatation. There were no pulmonary artery filling defects to indicate acute pulmonary embolism. No pleural effusions are visualized. There is a 48 mm right apical pulmonary mass. There is underlying pulmonary emphysema. There are bron chiectatic changes. There are bilateral multifocal groundglass pulmonary opacities slightly progressi ve. IMPRESSION: 1. No evidence of acute pulmonary embolism 2. Persistent 48 mm right apical pulmonary mass 3. Persistent mediastinal and hilar lymphadenopathy 4. Progressive bilateral groundglass pulmonary opacities right greater than left. The findings are no nspecific but could represent a multifocal pneumonia. Clinical correlation advocated 5. Pulmonary emphysema ACT 112: Negative or not required by law. Electronically signed by: Kanu Burciaga M.D. 08/28/2020 7:50 AM
[2020-08-28] MEDS: ATORVASTATIN 10 MG TAB PO SCH (07:53)
[2020-08-28] MEDS: PANTOprazole 40 MG TAB PO SCH (07:53)
[2020-08-28] MEDS: ADVANCED PROBIOTIC 1250 MG CAPSULE PO SCH (07:53)
[2020-08-28] MEDS: guaiFENesin 600 MG TABCR PO SCH ×2 (07:53→19:52)
[2020-08-28] MEDS: ENOXAPARIN INJ 40 MG/0.4 ML SYR SQ SCH (07:54)
[2020-08-28] MEDS: DOXYCYCLINE HYCLATE 100 MG CAP PO SCH ×2 (08:04→19:52)
[2020-08-28 08:44] LABS: Appearance Urine Clear (Clear); Bacteria Urine Automated Negative (Negative); Bilirubin Urine Negative (Negative); Blood Urine Trace (Negative); Color Urine Yellow; Glucose Urine UA Trace (Negative); Ketones Urine Negative (Negative); Leukocyte Esterase Urine Negative (Negative); Nitrite Urine Negative (Negative); Protein Urine Negative (Negative); Specific Gravity Urine 1.027 (1.000-1.030); Urobilinogen Urine Negative (Negative)
[2020-08-28] MEDS ORDERED: predniSONE 20 MG TAB PO SCH (09:00)
[2020-08-28] MEDS ORDERED: CEFEPIME CONSULT ACTIVE PRN (09:00)
[2020-08-28] MEDS ORDERED: FERROUS SULFATE 325 MG TAB PO SCH (09:00)
[2020-08-28] MEDS: CEFEPIME 2,000 MG in SYRINGE 0 ML IV SCH ×2 (09:52→17:42)
[2020-08-28] MEDS: FERROUS SULFATE 325 MG TAB PO SCH ×2 (11:43→17:42)
--- NOTE | 2020-08-28 13:55 | Electrocardiogram Report ---
Test Reason : Blood Pressure : / mmHG Vent. Rate : 106 BPM Atrial Rate : 106 BPM P-R Int : 134 ms QRS Dur : 084 ms QT Int : 318 ms P-R-T Axes : 038 012 042 degrees QTc Int : 422 ms Sinus tachycardia Nonspecific T wave abnormality Abnormal ECG When compared with ECG of 25-AUG-2020 06:47, No significant change was found Confirmed by Bhavin Haider ([id number]) on 08/28/2020 1:55:13 PM Referred By: REFERRED SELF Confirmed By:Bhavin Haider
[2020-08-28 16:33] LABS: Hematocrit (blood only) 24.9 % (37-47); Hemoglobin 8.1 g/dL (12.0-16.0)
--- NOTE | 2020-08-28 18:40 | Communication Note ---
Date of Service: August 28, 2020 Pt was seen and examined for follow up of SOB Lying in bed with no acute distress Pt was recently discharge last week for pneumonia She said that she has been using her oxygen supplement Pt said that she continues to have SOB with minimal exertion Denies any chest pain, palpitation, dizziness, fever Exam General- No acute distress Head- atraumatic Eyes- PERRL, EOMI, ENT- oropharynx clear Neck- supple, no JVD Lungs- +Decreased BS, port in left chest wall Heart- regular rhythm; +systolic murmur Abdomen- normal bowel sounds, soft, nontender Extremities- no calf tenderness Neuro- alert, oriented x 3; PERRL, EOMI; no facial palsy; no dysarthria Skin- warm & dry A/P Acute respiratory failure with hypoxia Present on admission with worsening SOB CTA showed persistent 48 mm right apical pulmonary mass. Persistent mediastinal and hilar lymphadenopathy. Progressive bilateral groundglass pulmonary opacities right greater than left. Received Zosyn and Vanco in the ER Continue steroid and neb treatment Consider pulm consult since she has recurrent admission for SOB and CT chest worsening Continue oxygen supplement Anemia Mostly due to chemotherapy Hgb dropped to 7.6 today repeat H/H 8.1 Will continue monitor closely DVT px on Lovenox, but hold in case hgb continues dropping Code Status DNR
[2020-08-28] MEDS ORDERED: methylPREDNISolone 20 MG in SYRINGE 0 ML IV STA (20:28)
[2020-08-28] MEDS ORDERED: INSULIN GLARGINE SOLOSTAR 100 UNITS/ML 3 ML PEN SC SCH (21:00)
--- NOTE | 2020-08-28 21:10 | XRay Report ---
SINGLE VIEW CHEST CLINICAL HISTORY: Hypoxia. FINDINGS: An AP, portable, upright chest radiograph is compared to chest x-ray and chest CT dated 08/17. The examination is degraded by portable technique and patient rotation. A left subclavian jonathan tral venous infusion port is in place. The heart is enlarged noting atherosclerotic calcification of the thoracic aorta. The pulmonary vasculature is noncongested. Advanced emphysema and chronic interst itial thickening is similar to previous. There is chronic elevation of left hemidiaphragm. A mass les ion is again noted at the right apex. Airspace consolidation is again seen throughout both lungs, rig ht greater than left. Suspect trace pleural effusions. No pneumothorax is seen. The skeletal structur es are osteopenic. The bony thorax appears intact. Cholecystectomy clips are seen in the right upper quadrant. IMPRESSION: 1. Multifocal airspace consolidation is again seen throughout both lungs, asymmetrically greater on t he right. 2. Suspect small pleural effusions. 3. Cardiomegaly, emphysema, and a right apical pulmonary mass are again noted. ACT 112: Negative or not required by law. Electronically signed by: Dany Allen M.D. 08/28/2020 9:08 PM
[2020-08-28 21:25] LABS: Base Excess ABG 0.9 mEq/L (-9-1.8); HCO3 ABG 24 mmol/L (19-24); Oxygen Saturation ABG 90.8 % (90-95); PCO2 ABG 35 mmHg (35-46); PO2 ABG 59 mmHg (80-95); pH ABG 7.46 (7.35-7.45)
[2020-08-28 21:26] LABS: Allen Test POS (Pos)
[2020-08-28] MEDS: INSULIN GLARGINE SOLOSTAR 100 UNITS/ML 3 ML PEN SC SCH (22:57)
[2020-08-29] MEDS: IPRATROPIUM BROMIDE NEB SOLN 0.02% 2.5 ML VIAL INH SCH ×5 (01:10→23:04)
[2020-08-29] MEDS: LEVALBUTEROL 1.25MG/0.5ML NEB INH SCH ×5 (01:10→23:04)
--- NOTE | 2020-08-29 02:36 | Communication Note ---
Date of Service: August 29, 2020 Notified by RN of patient's shortness of breath, O2 sats dropping to 70s as patient returned to bed from bedside commode. No chest pain. Usual cough sym ptoms. Has improved after neb treatment and Solu-Medrol. Change prednisone to Solu-Medrol daily for now. Discussed with AM provider about consulting Pulmonology.
[2020-08-29] MEDS: CEFEPIME 2,000 MG in SYRINGE 0 ML IV SCH ×3 (02:45→17:41)
[2020-08-29] MEDS: ATORVASTATIN 10 MG TAB PO SCH (08:28)
[2020-08-29] MEDS: guaiFENesin 600 MG TABCR PO SCH (08:28)
[2020-08-29] MEDS: ADVANCED PROBIOTIC 1250 MG CAPSULE PO SCH (08:28)
[2020-08-29] MEDS: ENOXAPARIN INJ 40 MG/0.4 ML SYR SQ SCH (08:28)
[2020-08-29] MEDS: DOXYCYCLINE HYCLATE 100 MG CAP PO SCH ×2 (08:29→20:38)
[2020-08-29] MEDS: PANTOprazole 40 MG TAB PO SCH (08:29)
[2020-08-29] MEDS: INSULIN ASPART 100 UNITS/ML 3 ML PEN SC SCH ×4 (08:32→20:39)
[2020-08-29] MEDS ORDERED: methylPREDNISolone 40 MG in SYRINGE 0 ML IV SCH (09:00)
[2020-08-29] MEDS ORDERED: ACETYLCYSTEINE 10% INHAL SOLN 4 ML **DISPENSED BY RESP. INH SCH ×2 (09:15→09:30)
[2020-08-29] MEDS: FERROUS SULFATE 325 MG TAB PO SCH ×2 (11:52→17:10)
[2020-08-29] MEDS: CHOLECALCIFEROL 1,000 UNITS 25 MCG TAB PO SCH (11:53)
--- NOTE | 2020-08-29 13:42 | Hospitalist Progress Note ---
Date of Service August 29, 2020 Assessment & Plan (1) Acute respiratory failure with hypoxia: Pneumonia Present on admission with worsening SOB CTA showed persistent 48 mm right apical pulmonary mass. Persistent mediastinal and hilar lymphadenopathy. Progressive bilateral groundglass pulmonary opacities right greater than left. Received Zosyn and Vanco in the ER Continue steroid and neb treatment Continue IV cefepime and Doxycline Will check sputum cx Blood cx no growth Consider pulm consult since she has recurrent admission for SOB and CT chest worsening Continue oxygen supplement Squamous cell carcinoma of lung, stage III: Completed chemotherapy in June Plan to start immunotherapy sometime in the near future Continue outpatient follow up with oncology Anemia Mostly due to chemotherapy Hgb dropped to 7.6 today repeat H/H 8.1 Will continue monitor closely COPD (chronic obstructive pulmonary disease): Pt was discharge on 2L NC in the last admission Currently on 10L NC Continue IV steroid Continue Neb treatment and Mucomyst added DM typp 2 Most recent hba1c 6.6 on 08/22/20 Continue insulin sliding scale while on steroid Continue monitor BS DVT px on Lovenox Code Status DNR Admission and Anticipated Discharge Date Admission Date: August 28, 2020 Subjective Pt was seen and examined for follow up of SOB Lying in bed with no acute distress Pt said that last night that she had difficulty to breath She said that when she just stood at the edge of her bed, oxygen level dropped in the 70's She said that her oxygen supplement was increased to 10L NC She said that she feels ok now as long as she does not exert herself She said that she continues to cough but unable to bring the phlegm up Denies any chest pain, palpitation, dizziness and fever Review of Systems Review of Systems: All systems reviewed & are unremarkable except as noted in Subjective Physical Exam Physical Exam: General- No acute distress Head- atraumatic Eyes- PERRL, EOMI, ENT- oropharynx clear Neck- supple, no JVD Lungs- +Decreased BS, port in left chest wall Heart- regular rhythm; +systolic murmur Abdomen- normal bowel sounds, soft, nontender Extremities- no calf tenderness Neuro- alert, oriented x 3; PERRL, EOMI; no facial palsy; no dysarthria Skin- warm & dry Results & Data Results & Data ([facility]) Vital Signs (Past 12 Hours) Vital Signs Temp Pulse Pulse Resp BP Pulse Ox 03/13/21 13:27 87 20 92 08/29/20 12:36 36.6 C 104 H 22 101/59 L 93 08/29/20 07:44 83 20 93 08/29/20 07:25 79 08/29/20 07:12 36.3 C L 100 H 22 120/70 86 L 08/29/20 03:00 36.4 C L 93 H 20 103/68 94
--- NOTE | 2020-08-29 14:45 | Pulmonary Consultation ---
Date of Consultation August 29, 2020 Assessment & Plan (1) Acute respiratory failure with hypoxia: (2) Abnormal CT scan of lung: Impression: 65-year-old female with stage IIIc non-small cell lung cancer treated with paclitaxel and carboplatin and radiation therapy admitted now with progressive infiltrates after receiving a course of outpatient antibiotics. The differential is broad and would include opportunistic infections including pneumocystis. Pulmonary hemorrhage or pulmonary toxicity related to chemotherapeutic agents would also be in the differential. Delayed radiation toxicity I suppose is a possibility as well although the infiltrates are well outside the radiation portal han. Recommendations: 1. We will conduct serological evaluation including ESR, CRP, ANCA, glomerular basement membrane, as well as Fungitell and Legionella urinary antigen. 2. Would continue cefepime and doxycycline for now although with a negative procalcitonin normal white blood cell count, it appears that infection is less likely. 3. Will empirically increase the patient's Solu-Medrol to 125 mg for potential alveolar hemorrhage or chemotherapeutic pulmonary toxicity. Would add empiric Bactrim as well given the possibility of P VINNY. 4. Ideally, the patient would undergo bronchoscopy with BAL however on the weekend this would be difficult to achieve. I will see how she progresses over the weekend and if she is not significantly improved we will set her up for bronchoscopy with BAL on Monday. 5. Continue supplemental oxygen titrated to keep saturations at or above 88%. The patient is at risk for progressive lung disease especially given the rapid progression of her infiltrates on CT scan. DNR/DNI status was confirmed with the patient. Total of 60 minutes was spent in evaluation management of this patient including coordinating care History of Present Illness Attending Physician: Subha Smith MD History of Present Illness Asked by hospitalist to evaluate this patient with progressively abnormal CT scan, history of lung cancer, COPD, potential interstitial lung disease, and progressive hypoxemic respiratory failure. History is obtained from discussion with the patient as well as review of the electronic medical record and discu ssion with hospitalist. Patient is a 65-year-old female who was seen by one of my colleagues, Dr. Wong, Back in October 2019. She had an abnormal CT scan with an apical lung mass on the right which was PET positive. She underwent endobronchial ultrasound which showed non-small cell lung cancer and station 4R lymph node. She also underwent CT-guided biopsy of the upper lobe lesion confirming squamous cell carcinoma. She was pathologically staged as a T3 N3 M0 stage IIIc non-small cell lung canc er. Patient was referred to both radiation oncology and medical oncology. She completed carbotaxol paclitaxel chemotherapy and radiation therapy. The patient was admitted 08/22 through 08/25 for presumptive pneumonia. Her CT scan at that point time showed groundglass opacities as well as subpleural emphysema. She was treated with Levaquin. Unfortunately the patient return to the emergency room 08/27 and was readmitted with a diagnosis of recurrent pneumonia. She had a repeat CT scan which showed progression of the interstitial and groundglass opacities. She had not been requiring oxygen previously but since her initial episode early in August has been on supplemental oxygen and she feels more winded with any significant physical activity. She is coughing and expectorating small amounts of phlegm. She is not had any hemoptysis. She denies any skin rashes or lesions. She was never treated with immunotherapy or checkpoint inhibitors that she is aware of although I do not have current documentation from her oncologist. She denies any ill contacts. She has not noted any hematuria. Allergies Allergy/AdvReac Type Severity Reaction Status Date / Time cephalexin Allergy Intermediate ITCHING Verified 08/22/20 00:43 Home Medications Medication Instructions Recorded Confirmed Type albuterol sulfate 1 inh INHALATION QID PRN 10/28/19 08/27/20 History cholecalciferol (vitamin D3) 5,000 unit PO QAM 10/28/19 08/27/20 History [Vitamin D3] fluticasone propion-salmeterol 1 inh INHALATION BID 04/01/20 08/27/20 History [Advair Diskus] atorvastatin 10 mg tablet 10 mg PO DAILY 06/15/20 08/27/20 History ondansetron HCl 8 mg tablet 8 mg PO Q8H 06/22/20 08/27/20 History prochlorperazine maleate 10 mg 10 mg PO Q6H PRN 06/22/20 08/27/20 History tablet omeprazole 20 mg tablet,delayed 20 mg PO DAILY 07/13/20 08/27/20 History release Flovent HFA 1 puff INHALATION BID PRN 08/22/20 08/27/20 History Lactobacillus acidoph-L.bulgar 1 tab PO BID #30 tab 08/25/20 08/27/20 Rx [Lactinex] ferrous sulfate 325 mg PO BID 30 Days #60 tab 08/25/20 08/27/20 Rx levalbuterol HCl 1.25 mg NEB Q4H PRN 30 Days #100 ea 08/25/20 08/27/20 Rx levofloxacin 750 mg PO DAILY@1100 5 Days #5 tab 08/25/20 08/27/20 Rx metformin 500 mg PO DAILY 08/27/20 08/27/20 History Patient History Medical History (Updated 08/29/20 @ 15:50 by Adilson Potter MD) Asthma Cardiac murmur Trace to mild sclerotic changes and regurgitation noted on 2019 echo COPD (chronic obstructive pulmonary disease) Diabetes mellitus, type 2 Exertional shortness of breath GERD (gastroesophageal reflux disease) Hyperlipidemia LAD (lymphadenopathy), mediastinal Seasonal allergies Squamous cell carcinoma of lung, stage III (10/30/19) UTI (urinary tract infection) FREQUENT Surgical History H/O wrist surgery LEFT History of ankle surgery RT (X2) History of bilateral tubal ligation History of bronchoscopy (10/30/19) EBUS History of cholecystectomy History of esophagogastroduodenoscopy (EGD) History of lung biopsy (04/01/20) History of tonsillectomy History of tooth extraction Family History Mother , Passed age 60 of CHF/Diabetes Complications Family history of diabetes mellitus Diabetes Father , Passed age 56 of CHF Diabetes Sister , Passed age 60 of [place] Myocardial infarction Sister , Passed age 60 of diabetic/kidney complications No problems noted. Sister , Passed age 61 of [place] Myocardial infarction Sister No problems noted. Sister No problems noted. Brother , Passed age 21 of accident No problems noted. Brother , Passed in 40's of [place] No problems noted. Brother , Passed age 36 of unknown No problems noted. Daughter No problems noted. Daughter No problems noted. Daughter No problems noted. Grandfather (Maternal) Diabetes Grandmother (Maternal) Diabetes Other Asthma Heart disease Social History (Updated 04/29/20 @ 14:42 by Marilee Simms RN) Smoking Status: Former smoker Tobacco Type: Cigarettes packs per day: 1.5; Years Smoked: 36; Cigarettes Per Day: 1.5 pack/day; Second Hand Exposure: No; Do You Dip or Chew Tobacco: No; Tobacco Cessation Education Requested by Patient: No Hx Alcohol Use: Yes Alcohol type: beer Hx Substance Use: No Preferred Language: Syriac Communication Ability: Effective Visual Impairment: Limited Hearing Ability: Normal Store Lead Required: No Beliefs That Will Affect Care: None marital status: Unknown Current Living Situation: Alone Current Living Situation Comment: Daughter Nguyen comes by the house everyday current occupational status: retired 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 No additions or deletions Physical Exam Constitutional: well developed Neck: trachea midline, no thyromegaly Respiratory: + labored breathing and + tachypneic Auscultation: + crackles and + rales Cardiovascular: RRR, no murmur, no edema Gastrointestinal (Abdomen): normal bowel sounds, soft, nontender, no hepatosplenomegaly Musculoskeletal: Extremities: extremities normal to inspection Skin: no rashes, warm and dry Neurologic: Nonfocal exam Lymphatic: no cervical lymphadenopathy Results & Data Results & Data ([facility]) Vital Signs (Past 12 Hours) Vital Signs Temp Pulse Pulse Resp BP Pulse Ox 08/29/20 13:27 87 20 92 08/29/20 12:36 36.6 C 104 H 22 101/59 L 93 08/29/20 07:44 83 20 93 08/29/20 07:25 79 08/29/20 07:12 36.3 C L 100 H 22 120/70 86 L 08/29/20 03:00 36.4 C L 93 H 20 103/68 94 Laboratory Results 08/28/20 16:12 08/28/20 05:13 White count is never been elevated. INR 1.2 Blood gas showed a pH 7.46, PCO2 of 35 and PO2 of 59. BMP of 213 Procalcitonin 0.22 Troponin negative. Urinalysis showed trace glucose and trace blood with 10-30 red cells per high- power field. Covid test and influenza swabs negative Diagnostic Findings Chest x-ray from today demonstrates diffuse interstitial opacities worse on the left than the right. There is a large gastric air bubble with subsequent elevation of the left hemidiaphragm. CT of the chest from 08/27/2020 was reviewed and compared to prior CT scan from 08/10/2020. There were subpleural interstitial markings on the 222 film but the current film demonstrates diffuse groundglass opacity with septal thickening as well as the apical lung mass. There are also interstitial opacities present within the lingula with relative sparing of the lower lobe on the left although there is one area of patchy infiltrate. These all appear new compared to prior CT scan from a month ago and significantly progressed from a CT only 6 days ago PG Care Time/CCT Total # of Minutes Spent Total Time Spent with Patient: Total time spent is greater than 50% in coordination of care (as documented) at patient's floor/unit and/or counseling patient: Coding Level of Care Code 74661 Inpt Consult Level 5 Diagnoses Acute respiratory failure with hypoxia J96.[address] scan of lung R91.8
[2020-08-29] MEDS: SULFAMETHOXAZOLE/TRIMETHOPRIM DS 800/160MG TAB PO SCH (20:38)
[2020-08-29] MEDS: INSULIN GLARGINE SOLOSTAR 100 UNITS/ML 3 ML PEN SC SCH (20:39)
[2020-08-29] MEDS ORDERED: methylPREDNISolone 40 MG in SYRINGE 0 ML IV ONE (21:15)
--- NOTE | 2020-08-29 21:32 | XRay Report ---
XR chest 1V portable HISTORY: 65 years-old Female low o2 acute hypoxia COMPARISON: Chest radiograph 08/28/2020, CTA chest 08/27/2020 TECHNIQUE: AP view of the chest FINDINGS: Cardiac silhouette is enlarged. Emphysema with chronic interstitial coarsening. Right apical mass is better seen on comparison CTA of the chest. Probable trace pleural effusions. Unchanged positioning o f the left pectoral Hgholc-t-Dvov catheter. Multifocal airspace opacities, right greater than left ar e redemonstrated and are generally stable from comparison. The bones appear grossly intact. IMPRESSION: 1. Right greater than left airspace opacities are stable from comparison 2. Cardiomegaly 3. Mass of the right lung apex is better characterized on comparison CTA of the chest. ACT 112: Negative or not required by law. The above report was generated using voice recognition software. It may contain grammatical, syntax o r spelling errors. Electronically signed by: Patricio Rivas M.D. 08/29/2020 9:30 PM
[2020-08-29 21:40] LABS: Eosinophils # (auto) 0.16 K/uL (0-0.5); Eosinophils % (auto) 1.6 %; Hematocrit (blood only) 28.3 % (37-47); Immature Granulocytes # (auto) 0.03 K/uL (0.00-0.02); Immature Granulocytes % (auto) 0.3 %; Lymphocytes # (auto) 0.68 K/uL (1.2-3.4); Lymphocytes % (auto) 6.6 %; Mean Corpuscular Hemoglobin 31.6 pg (25-34); Mean Corpuscular Hgb Conc 31.8 g/dL (32-36); Mean Corpuscular Volume 99.3 fL (80-100); Mean Platelet Volume 10.1 fL (7.4-10.4); Monocytes # (auto) 0.03 K/uL (0.11-0.59); Monocytes % (auto) 0.3 %; Neutrophils # (auto) 9.42 K/uL (1.4-6.5); Neutrophils % (auto) 91.2 %; Platelet Count 290 K/uL (130-400); RDW Coefficient of Variation 19.5 % (11.5-14.5); RDW Standard Deviation 70.8 fL (36.4-46.3); Red Blood Count 2.85 M/uL (4.2-5.4); White Blood Count 10.32 K/uL (4.8-10.8)
[2020-08-29] MEDS: MAGNESIUM SULFATE / D5W 1 GM/100 ML BAG IV SCH ×2 (21:40→23:52)
[2020-08-29] MEDS ORDERED: OLANZapine 10 MG/2.1 ML SDV IM STA ×2 (21:41→22:47)
[2020-08-29 22:01] LABS: Calcium 9.3 mg/dl (8.5-10.1); Creatinine Clr Calc Pharmacy 83.5 ml/min; Est GFR (African American) 100.9; Magnesium 2.1 mg/dl (1.8-2.4); Potassium 3.9 mmol/L (3.5-5.1)
[2020-08-29 22:38] LABS: Base Excess ABG 3.2 mEq/L (-9-1.8); HCO3 ABG 28 mmol/L (19-24); Oxygen Saturation ABG 94.6 % (90-95); PCO2 ABG 46 mmHg (35-46); PO2 ABG 75 mmHg (80-95); pH ABG 7.41 (7.35-7.45)
[2020-08-29 22:41] LABS: Allen Test POS (Pos)
[2020-08-29] MEDS ORDERED: LACTATED RINGER'S 1,000 ML IV ONE (22:47)
--- NOTE | 2020-08-29 23:16 | Communication Note ---
Date of Service: August 29, 2020 Patient noted to have worsening hypoxemia/respiratory distress overnight requiring BiPAP. Chest x-ray: 1. Right greater than left airspace opacities are stable from comparison 2. Cardiomegaly 3. Mass of the right lung apex is better characterized on comparison CTA of the chest. Patient agitated and tachycardic. Transient bradycardia as per RN. PCU transfer given heart rate issues. Will relay to AM provider.
[2020-08-29] MEDS ORDERED: SODIUM CHLORIDE 0.9% NEBU SOLN 3 ML NEB STA (23:25)
[2020-08-29] MEDS ORDERED: ACETAMINOPHEN 1000 MG/100 ML IV IV ONE (23:26)
[2020-08-29] MEDS ORDERED: ACETAMINOPHEN 1,000 MG/100 ML VIAL IV ONE (23:45)
[2020-08-30] MEDS: CEFEPIME 2,000 MG in SYRINGE 0 ML IV SCH ×3 (01:49→17:15)
[2020-08-30] MEDS ORDERED: LORazepam 0.25 MG/0.5 ML VIAL IV STA ×2 (03:15→23:02)
[2020-08-30] MEDS ORDERED: methylPREDNISolone 125 MG in SYRINGE 0 ML IV SCH ×2 (03:25→09:00)
[2020-08-30] MEDS: IPRATROPIUM BROMIDE NEB SOLN 0.02% 2.5 ML VIAL INH SCH ×6 (03:38→22:16)
[2020-08-30] MEDS: LEVALBUTEROL 1.25MG/0.5ML NEB INH SCH ×6 (03:38→22:16)
[2020-08-30 07:31] LABS: Hematocrit (blood only) 27.4 % (37-47); Hemoglobin 8.9 g/dL (12.0-16.0); Mean Corpuscular Hemoglobin 32.2 pg (25-34); Mean Corpuscular Hgb Conc 32.5 g/dL (32-36); Mean Corpuscular Volume 99.3 fL (80-100); Mean Platelet Volume 10.4 fL (7.4-10.4); Platelet Count 234 K/uL (130-400); RDW Coefficient of Variation 19.6 % (11.5-14.5); RDW Standard Deviation 71.4 fL (36.4-46.3); Red Blood Count 2.76 M/uL (4.2-5.4); White Blood Count 10.56 K/uL (4.8-10.8)
[2020-08-30 08:08] LABS: BUN Creatinine Ratio 25.4 (10-20); Calcium 9.6 mg/dl (8.5-10.1); Creatinine Clr Calc Pharmacy 90.4 ml/min; Est GFR (African American) 107.7; Est GFR (Non-African American) 92.9; Potassium 4.8 mmol/L (3.5-5.1)
[2020-08-30] MEDS: ADVANCED PROBIOTIC 1250 MG CAPSULE PO SCH (08:24)
[2020-08-30] MEDS: PANTOprazole 40 MG TAB PO SCH (08:25)
[2020-08-30] MEDS: DOXYCYCLINE HYCLATE 100 MG CAP PO SCH ×2 (08:25→22:10)
[2020-08-30] MEDS: SULFAMETHOXAZOLE/TRIMETHOPRIM DS 800/160MG TAB PO SCH ×2 (08:25→22:10)
[2020-08-30] MEDS: CHOLECALCIFEROL 1,000 UNITS 25 MCG TAB PO SCH (08:25)
[2020-08-30] MEDS: ENOXAPARIN INJ 40 MG/0.4 ML SYR SQ SCH (08:26)
[2020-08-30] MEDS: ATORVASTATIN 10 MG TAB PO SCH (08:26)
[2020-08-30] MEDS: INSULIN ASPART 100 UNITS/ML 3 ML PEN SC SCH ×4 (09:47→22:09)
[2020-08-30] MEDS: FERROUS SULFATE 325 MG TAB PO SCH ×2 (12:11→17:15)
--- NOTE | 2020-08-30 12:32 | Pulmonology Progress Note ---
Date of Service August 30, 2020 Assessment & Plan (1) Acute respiratory failure with hypoxia: (2) Abnormal CT scan of lung: Impression: 65-year-old female with stage IIIc non-small cell lung cancer treated with paclitaxel and carboplatin and radiation therapy admitted now with progressive infiltrates after receiving a course of outpatient antibiotics. The differential is broad and would include opportunistic infections including pneumocystis. Pulmonary hemorrhage or pulmonary toxicity related to chemotherapeutic agents would also be in the differential. Delayed radiation toxicity I suppose is a possibility as well although the infiltrates are well outside the radiation portal han. Recommendations: 1. ESR and CRP are elevated, suggestive of an inflammatory process. ANCA, gl omerular basement membrane, as well as Fungitell and Legionella urinary antigen are currently pending. 2. Would continue cefepime and doxycycline and Bactrim. Bactrim was started due to elevated LDH and possibility of pneumocystis 3. We will continue the patient's Solu-Medrol to 125 mg for potential alveolar hemorrhage or chemotherapeutic pulmonary toxicity. 4. We will make the patient n.p.o. after midnight and reassess tomorrow for potential bronchoscopy with BAL. Her oxygenation is somewhat tenuous currently and it may be reasonable to continue empiric therapy in the hope that the patient improves clinically 5. Continue supplemental oxygen titrated to keep saturations at or above 88%. Patient felt better with positive airway pressure last night. We will put in an order for CPAP at night. The patient is not having ventilatory difficulties and would not recommend BiPAP routinely. Alternatively, she can be placed on heated high flow oxygen therapy which would provide a small degree of positive airway pressure. There is no indication for BiPAP. The patient is at risk for progressive lung disease especially given the rapid progression of her infiltrates on CT scan. DNR/DNI status was confirmed with the patient. We will continue to follow with you Admission and Anticipated Discharge Date Admission Date: August 28, 2020 Subjective Patient seen and examined. She currently states that she is doing okay although she does relate that overnight she did have some increasing work of breathing. She was empirically placed on BiPAP and thinks that it may have offered her some clinical benefit. She continues to cough but is not expectorating phlegm. Physical Exam Constitutional: well developed Neck: trachea midline, no thyromegaly Respiratory: + labored breathing and + tachypneic Auscultation: + crackles and + rales Cardiovascular: RRR, no murmur, no edema Gastrointestinal (Abdomen): normal bowel sounds, soft, nontender, no hepatosplenomegaly Musculoskeletal: Extremities: extremities normal to inspection Skin: no rashes, warm and dry Lymphatic: no cervical lymphadenopathy Results & Data Results & Data ([facility]) Vital Signs (Past 12 Hours) Vital Signs Temp Pulse Pulse Pulse Resp BP Pulse Ox 08/30/20 11:24 36.5 C 98 H 20 99/75 L 96 08/30/20 10:59 100 H 20 93 08/30/20 08:00 08/30/20 07:47 36.5 C 85 23 120/67 95 08/30/20 07:12 88 26 H 98 08/30/20 07:09 88 26 H 98 08/30/20 03:59 36.6 C 96 H 28 H 104/72 95 08/30/20 03:39 94 H 28 H 94 08/30/20 03:38 94 H 28 H 94 08/30/20 00:42 119 H 39 H 94 08/30/20 00:40 121 H 39 H 94 08/30/20 00:33 37.4 C 117 H 40 H 133/95 94 Pulse Ox 08/30/20 11:24 08/30/20 10:59 08/30/20 08:00 89 L 08/30/20 07:47 08/30/20 07:12 08/30/20 07:09 08/30/20 03:59 08/30/20 03:39 08/30/20 03:38 08/30/20 00:42 08/30/20 00:40 08/30/20 00:33 Laboratory Results 08/30/20 07:08 08/30/20 07:08 ESR 61 Most recent blood gas 7.4 LDH 400 C-reactive protein 9.91 ANCA pending Anti-GBM pending Galactomannan pending Diagnostic Findings Chest x-ray from last night was independently reviewed and compared to prior nessa ms. There is stable persistent opacity within the right hemithorax. Left lung is involved but to a much lesser degree. Overall appears relatively stable. PG Care Time/CCT Total # of Minutes Spent Total Time Spent with Patient: Total time spent is greater than 50% in coordination of care (as documented) at patient's floor/unit and/or counseling patient: Coding Level of Care Code 43260 Subseq Hosp Care Lvl 3 Diagnoses Acute respiratory failure with hypoxia J96.[address] scan of lung R91.8 Time Spent (min) 35
--- NOTE | 2020-08-30 12:42 | Electrocardiogram Report ---
Test Reason : Blood Pressure : / mmHG Vent. Rate : 120 BPM Atrial Rate : 120 BPM P-R Int : 134 ms QRS Dur : 074 ms QT Int : 364 ms P-R-T Axes : 048 020 051 degrees QTc Int : 514 ms Poor data quality, interpretation may be adversely affected Sinus tachycardia Nonspecific T wave abnormality Abnormal ECG When compared with ECG of 27-AUG-2020 21:27, No significant change was found Confirmed by Jake Gallegos ([id number]) on 08/30/2020 12:42:26 PM Referred By: REFERRED SELF Confirmed By:Jake Gallegos
--- NOTE | 2020-08-30 15:57 | Hospitalist Progress Note ---
Date of Service August 30, 2020 Assessment & Plan (1) Acute respiratory failure with hypoxia: Pneumonia Present on admission with worsening SOB CTA showed persistent 48 mm right apical pulmonary mass. Persistent mediastinal and hilar lymphadenopathy. Progressive bilateral groundglass pulmonary opacities right greater than left. Received Zosyn and Vanco in the ER Continue steroid and neb treatment Continue IV cefepime and Doxycline and Bactrum DS added Sputum cx and blood cx no growth Pulm on board ESR and CRP are elevated, suggestive of an inflammatory process. ANCA, glomerular basement membrane, as well as Fungitell and Legionella urinary antigen are currently pending. Continue Solu-Medrol to 125 mg for potential alveolar hemorrhage or chemotherapeutic pulmonary toxicity. We will make the patient n.p.o. after midnight and reassess tomorrow for potential bronchoscopy with BAL. Continue supplemental oxygen titrated to keep saturations at or above 88%. Will recommended CPAP at night. Please avoid BIPAP since it is not indicated with normal PCO2 Squamous cell carcinoma of lung, stage III: Completed chemotherapy in June Plan to start immunotherapy sometime in the near future Continue outpatient follow up with oncology Anemia Mostly due to chemotherapy Hgb 8.9 today Continue monitor CBC COPD (chronic obstructive pulmonary disease): Pt was discharge on 2L NC in the last admission Continue oxygen supplement Continue IV steroid Continue Neb treatment Please keep oxygen saturation above 88% DM typp 2 Most recent hba1c 6.6 on 08/22/20 Continue insulin sliding scale while on steroid Continue monitor BS DVT px on Lovenox Code Status DNR Admission and Anticipated Discharge Date Admission Date: August 28, 2020 Subjective Pt was seen and examined for follow up of respiratory distress Lying in bed watching TV. she said that her breathing seems to be alittle better today She said that last night she desaturated after she got up to use the bathroom She said that she is trying to bring the phlegm up She said that she becomes SOB with any exertion Called daughter Dayanna over the phone. Provided her with update and answered all her questions Denies any chest pain, palpitation, dizziness and fever Physical Exam Physical Exam: General- No acute distress Head- atraumatic Eyes- PERRL, EOMI, ENT- oropharynx clear Neck- supple, no JVD Lungs- +Decreased BS, port in left chest wall Heart- regular rhythm; +systolic murmur Abdomen- normal bowel sounds, soft, nontender Extremities- no calf tenderness Neuro- alert, oriented x 3; PERRL, EOMI; no facial palsy; no dysarthria Skin- warm & dry Results & Data Results & Data ([facility]) Vital Signs (Past 12 Hours) Vital Signs Temp Pulse Pulse Pulse Resp BP Pulse Ox 08/30/20 15:06 36.6 C 91 H 19 108/78 96 08/30/20 15:01 97 H 20 93 08/30/20 11:24 36.5 C 98 H 20 99/75 L 96 08/30/20 10:59 100 H 20 93 08/30/20 08:00 08/30/20 07:47 36.5 C 85 23 120/67 95 08/30/20 07:12 88 26 H 98 08/30/20 07:09 88 26 H 98 08/30/20 03:59 36.6 C 96 H 28 H 104/72 95 Pulse Ox 08/30/20 15:06 08/30/20 15:01 08/30/20 11:24 08/30/20 10:59 08/30/20 08:00 89 L 08/30/20 07:47 08/30/20 07:12 08/30/20 07:09 08/30/20 03:59
[2020-08-30] MEDS: INSULIN GLARGINE SOLOSTAR 100 UNITS/ML 3 ML PEN SC SCH (22:09)
[2020-08-31] MEDS ORDERED: SODIUM CHLORIDE 0.9% NEBU SOLN 3 ML NEB STA (01:07)
[2020-08-31] MEDS ORDERED: methylPREDNISolone 125 MG in SYRINGE 0 ML IV SCH (01:10)
[2020-08-31] MEDS ORDERED: MAGNESIUM SULFATE / D5W 1 GM/100 ML BAG IV ONE (01:30)
[2020-08-31 02:08] LABS: HCO3 ABG 29 mmol/L (19-24); Oxygen Saturation ABG 93.6 % (90-95); PCO2 ABG 48 mmHg (35-46); PO2 ABG 74 mmHg (80-95); pH ABG 7.39 (7.35-7.45)
[2020-08-31 02:09] LABS: Allen Test POS (Pos)
[2020-08-31 02:17] LABS: BUN Creatinine Ratio 31.5 (10-20); C Reactive Protein 10.6 mg/dl (0-0.29); Calcium 9.4 mg/dl (8.5-10.1); Creatinine Clr Calc Pharmacy 76.7 ml/min; Est GFR (African American) 91.7; Est GFR (Non-African American) 79.1; Magnesium 2.1 mg/dl (1.8-2.4); Potassium 4.1 mmol/L (3.5-5.1)
[2020-08-31 02:22] LABS: Hematocrit (blood only) 31.6 % (37-47); Hemoglobin 10.1 g/dL (12.0-16.0); Mean Corpuscular Hemoglobin 31.5 pg (25-34); Mean Corpuscular Volume 98.4 fL (80-100); Mean Platelet Volume 10.4 fL (7.4-10.4); Platelet Count 413 K/uL (130-400); RDW Coefficient of Variation 19.2 % (11.5-14.5); RDW Standard Deviation 69.2 fL (36.4-46.3); Red Blood Count 3.21 M/uL (4.2-5.4)
[2020-08-31 02:23] LABS: Basophils # (auto) 0.01 K/uL (0-0.2); Eosinophils # (auto) 0.18 K/uL (0-0.5); Eosinophils % (auto) 0.7 %; Immature Granulocytes # (auto) 0.09 K/uL (0.00-0.02); Immature Granulocytes % (auto) 0.4 %; Lymphocytes # (auto) 0.76 K/uL (1.2-3.4); Monocytes # (auto) 0.31 K/uL (0.11-0.59); Monocytes % (auto) 1.2 %; Neutrophils # (auto) 23.65 K/uL (1.4-6.5); Neutrophils % (auto) 94.7 %; Tear Drop Cells 1+
[2020-08-31] MEDS ORDERED: MoRPHine SULFATE 2 MG/ML CARP IV STA (02:44)
[2020-08-31] MEDS: CEFEPIME 2,000 MG in SYRINGE 0 ML IV SCH ×3 (02:55→17:30)
[2020-08-31] MEDS ORDERED: ALBUMIN 25% 12.5 GM/50 ML VIAL IV ONE (03:09)
[2020-08-31] MEDS: LEVALBUTEROL 1.25MG/0.5ML NEB INH SCH ×6 (03:31→23:55)
[2020-08-31] MEDS: IPRATROPIUM BROMIDE NEB SOLN 0.02% 2.5 ML VIAL INH SCH ×6 (03:31→23:55)
--- NOTE | 2020-08-31 07:38 | XRay Report ---
XR chest 1V portable CLINICAL HISTORY: Shortness of breath. Lung cancer. COMPARISON STUDY: Chest CT August 27, 2020. Chest radiograph August 29, 2020. FINDINGS: Right upper lobe mass is again noted. A left subclavian Vrjnnp-l-Ulhm is in place. Mild jael vation of the left hemidiaphragm is unchanged. Bilateral airspace opacities and interstitial thickeni ng, greater on the right, are similar to prior exam. Cardiomediastinal silhouette is stable. IMPRESSION: 1. No significant change in bilateral airspace opacities and interstitial thickening, greater within the right lung. The findings could reflect an infectious process or asymmetric pulmonary edema. 2. Redemonstration of a right upper lobe mass. ACT 112: Negative or not required by law. Electronically signed by: Magnus Amaral M.D. 08/31/2020 7:37 AM
[2020-08-31] MEDS: ATORVASTATIN 10 MG TAB PO SCH (08:11)
[2020-08-31] MEDS: ADVANCED PROBIOTIC 1250 MG CAPSULE PO SCH (08:11)
[2020-08-31] MEDS: DOXYCYCLINE HYCLATE 100 MG CAP PO SCH ×2 (08:12→21:15)
[2020-08-31] MEDS: SULFAMETHOXAZOLE/TRIMETHOPRIM DS 800/160MG TAB PO SCH (08:12)
[2020-08-31] MEDS: PANTOprazole 40 MG TAB PO SCH (08:12)
[2020-08-31] MEDS: ENOXAPARIN INJ 40 MG/0.4 ML SYR SQ SCH (08:13)
[2020-08-31] MEDS: CHOLECALCIFEROL 1,000 UNITS 25 MCG TAB PO SCH (08:13)
[2020-08-31] MEDS: INSULIN ASPART 100 UNITS/ML 3 ML PEN SC SCH ×4 (08:13→21:15)
[2020-08-31] MEDS: FERROUS SULFATE 325 MG TAB PO SCH ×2 (11:59→17:30)
[2020-08-31] MEDS: NYSTATIN SUSP 500,000 U/5 ML UDC PO SCH ×2 (12:40→21:15)
--- NOTE | 2020-08-31 19:17 | Hospitalist Progress Note ---
Date of Service August 31, 2020 Assessment & Plan (1) Acute respiratory failure with hypoxia: Pneumonia Present on admission with worsening SOB CTA showed persistent 48 mm right apical pulmonary mass. Persistent mediastinal and hilar lymphadenopathy. Progressive bilateral groundglass pulmonary opacities right greater than left. Received Zosyn and Vanco in the ER Continue steroid and neb treatment Continue IV cefepime and Doxycline and Bactrum DS added Sputum cx and blood cx no growth Pulm on board ESR and CRP are elevated, suggestive of an inflammatory process. ANCA, glomerular basement membrane, as well as Fungitell and Legionella urinary antigen are currently pending. Continue Solu-Medrol to 125 mg for potential alveolar hemorrhage or chemotherapeutic pulmonary toxicity. We will make the patient n.p.o. after midnight and reassess tomorrow for potential bronchoscopy with BAL. Continue supplemental oxygen titrated to keep saturations at or above 88%. CPAP at night. Please avoid BIPAP since it is not indicated with normal PCO2 Bronch cancelled due to extreme hypoxic on high flow oxygen supplement Bactrium discontinued for possible rash Squamous cell carcinoma of lung, stage III: Completed chemotherapy in June Plan to start immunotherapy sometime in the near future Continue outpatient follow up with oncology Anemia Mostly due to chemotherapy Hgb 10.1 today Continue monitor CBC COPD (chronic obstructive pulmonary disease): Pt was discharge on 2L NC in the last admission Continue high oxygen supplement Continue IV steroid Continue Neb treatment Please keep oxygen saturation above 88% DM typp 2 Most recent hba1c 6.6 on 08/22/20 Continue insulin sliding scale while on steroid Continue monitor BS DVT px on Lovenox Code Status DNR Admission and Anticipated Discharge Date Admission Date: August 28, 2020 Subjective Pt was seen and examined for follow up of respiratory failure Lying in bed with no distress on high flow oxygen supplement she said that her breathing slightly better she said that she develops SOB with exertion Denies any chest pain, palpitation, dizziness and fever Review of Systems Review of Systems: All systems reviewed & are unremarkable except as noted in Subjective Physical Exam Physical Exam: General- No acute distress Head- atraumatic Eyes- PERRL, EOMI, ENT- oropharynx clear Neck- supple, no JVD Lungs- +Decreased BS, port in left chest wall Heart- regular rhythm; +systolic murmur Abdomen- normal bowel sounds, soft, nontender Extremities- no calf tenderness Neuro- alert, oriented x 3; PERRL, EOMI; no facial palsy; no dysarthria Skin- warm & dry Results & Data Results & Data ([facility]) Vital Signs (Past 12 Hours) Vital Signs Temp Pulse Pulse Pulse Resp BP Pulse Ox 08/31/20 19:10 36.9 C 94 H 24 96/62 L 91 08/31/20 15:50 36.9 C 93 H 20 95/64 L 91 08/31/20 15:03 95 H 18 92 08/31/20 12:03 109 H 21 89 L 08/31/20 11:50 99 H 25 H 83 L 08/31/20 11:30 36.6 C 102 H 24 112/68 82 L 08/31/20 07:35 36.6 C 104 H 23 116/87 98
[2020-08-31] MEDS: INSULIN GLARGINE SOLOSTAR 100 UNITS/ML 3 ML PEN SC SCH (21:16)
--- NOTE | 2020-08-31 21:19 | Pulmonology Progress Note ---
Date of Service August 31, 2020 Assessment & Plan (1) Acute respiratory failure with hypoxia: Impression: 65-year-old female with stage IIIc non-small cell lung cancer treated with paclitaxel and carboplatin and radiation therapy admitted now with progressive infiltrates after receiving a course of outpatient antibiotics. The differential is broad and could include opportunistic infections including pneumocystis. Pulmonary hemorrhage or pulmonary toxicity related to chemotherapeutic agents would also be in the differential. Delayed radiation toxicity possible as well although the infiltrates are well outside the radiation portal han. Recommendations: 1.Acute respiratory failure with hypoxia:Patient has a history of stage IIIc lung cancer with mass demonstrated on imaging. She is status post chemotherapy as well as XRT.Differential diagnosis includes pulmonary hemorrhage, bacterial infection, viral infection, pulmonary fibrosis, delayed radiation toxicity.Procalcitonin is negative. Patient is empirically on antibiotics.Patient was started on Bactrim for possible PCP secondary to immunosuppression from chemotherapy.However, patient developed what appears to be an acute drug reaction rash after starting Bactrim.Bactrim was been discontinued.Induced sputum with hypertonic saline sent for culture and sensitivities specifically looking for PCP.Patient is now requiring high flow supplemental oxygen.Continue to maintain SaO2 between 88 and 92%.Daughter Dayanna in [place] called and updated. Orders placed for patient be out of bed to chair. Also started on incentive spirometry today. 2. Rash:Patient developed a rash on her back, chest, abdomen, thighs after starting Bactrim.Bactrim has been discontinued.Rash is not symptomatic.Placed sulfa/Bactrim on allergy list and follow tomorrow. 3. Abnormal CT scan chest:Unclear on etiology.Plan was to pursue bronchoscopy for further diagnosis.However, patient was extremely hypoxic this morning with minimal activity and desaturated to 84%.We will continue to work on oxygenation using CPAP and high flow oxygen.Discontinue n.p.o. status and feed patient today.Reevaluate tomorrow.Continue methylprednisolone 125 mg IV for differential including potential alveolar hemorrhage or chemotherapeutic pulmonary toxicity. Patient's ESR and CRP are elevated. ANCA, glomerular basement membrane, as well as Fungitell and Legionella urinary antigen are currently pending. 4.Diabetes mellitus type 2:Patient is on Metformin at home.Will use Lantus and NovoLog sliding scale due to high doses of steroids.Continue to follow BSG and treat. 5.Pneumonia:Patient with a negative procalcitonin. Empirically being treated with cefepime and doxycycline. Bactrim discontinued secondary to rash. This had been started due to elevated LDH and possibility of PCP. 6. Oral candidiasis: Patient started on nystatin swish and swallow 10 mL 3 times daily Thank you for including us in the care of this patient.Patient daughter Dayanna in [place] was updated by phone.We will continue to follow along with you. (2) Abnormal CT scan of lung: (3) COPD (chronic obstructive pulmonary disease): (4) Squamous cell carcinoma of lung, stage III: Laterality: right Qualified Code(s): C34.91 - Malignant neoplasm of unspecified part of right bronchus or lung (5) Pneumonia: Laterality: bilateral Lung location: unspecified part of lung Pneumonia type: due to unspecified organism Qualified Code(s): J18.9 - Pneumonia, unspecified organism (6) Diabetes mellitus, type 2: Admission and Anticipated Discharge Date Admission Date: August 28, 2020 Subjective Attending: Dr. Bonds Patient seen and examined in her room.She states that she is still having some dyspnea with exertion as well some conversational dyspnea.She has no chest pain or chest tightness.She denies any significant cough or sputum production.She denies fever or chills.She further denies any hemoptysis.She is hungry and is requesting diet to be advanced.She has no acute complaints. Review of Systems Review of Systems: All systems reviewed & are unremarkable except as noted in Subjective Physical Exam Physical Exam: GENERAL : No acute distress EYES: No icterus, gaze conjugate NOSE: No evidence of epistaxis MOUTH: No lesions or candidiasis NECK: Supple LUNGS: Crackles at the bilateral bases. No appreciation of bronchospasm or rhonchi.Patient does have a slight cough with deep inspiration.She does desaturate into the mid 80s with minimal activity. HEART: Regular, rate controlled ABDOMEN: Soft, NT, ND, BS Present EXTREMITIES: No LE edema, pedal pulses intact NEURO: A&OX3 Results & Data Results & Data ([facility]) Vital Signs (Past 12 Hours) Vital Signs Temp Pulse Pulse Resp BP Pulse Ox 08/31/20 19:48 100 H 40 H 87 L 08/31/20 19:10 36.9 C 94 H 24 96/62 L 91 08/31/20 15:50 36.9 C 93 H 20 95/64 L 91 08/31/20 15:03 95 H 18 92 08/31/20 12:03 109 H 21 89 L 08/31/20 11:50 99 H 25 H 83 L 08/31/20 11:30 36.6 C 102 H 24 112/68 82 L Laboratory Results 08/31/20 01:53 08/31/20 01:53 08/27/20 08/28/20 08/29/20 22:28 20:57 21:30 ABG pH 7.46 H Cancelled ABG pCO2 35 Cancelled ABG pO2 59 L Cancelled ABG HCO3 24 Cancelled ABG O2 Saturation 90.8 Cancelled ABG Base Excess 0.9 Cancelled VBG pH 7.45 H VBG pCO2 42 VBG pO2 27 VBG HCO3 28 VBG O2 Saturation < 60.0 VBG Base Excess 3.6 08/29/20 08/31/20 22:23 01:53 ABG pH 7.41 7.39 ABG pCO2 46 48 H ABG pO2 75 L 74 L ABG HCO3 28 H 29 H ABG O2 Saturation 94.6 93.6 ABG Base Excess 3.2 H 3.0 H VBG pH VBG pCO2 VBG pO2 VBG HCO3 VBG O2 Saturation VBG Base Excess Diagnostic Findings XR chest 1V portable CLINICAL HISTORY: Shortness of breath. Lung cancer. COMPARISON STUDY: Chest CT August 27, 2020. Chest radiograph August 29, 2020. FINDINGS: Right upper lobe mass is again noted. A left subclavian [id number] is in place. Mild elevation of the left hemidiaphragm is unchanged. Bilateral airspace opacities and interstitial thickening, greater on the right, are similar to prior exam. Cardiomediastinal silhouette is stable. IMPRESSION: 1. No significant change in bilateral airspace opacities and interstitial thickening, greater within the right lung. The findings could reflect an infectious process or asymmetric pulmonary edema. 2. Redemonstration of a right upper lobe mass. ACT 112: Negative or not required by law. Electronically signed by: Magnus Amaral M.D. 08/31/2020 7:37 AM PG Care Time/CCT Total # of Minutes Spent Total Time Spent with Patient: Total time spent is greater than 50% in coordination of care (as documented) at patient's floor/unit and/or counseling patient: Coding Level of Care Code 51041 Subseq Hosp Care Lvl 2 Diagnoses Acute respiratory failure with hypoxia J96.[address] scan of lung R91.8 COPD (chronic obstructive pulmonary disease) J44.9 Squamous cell carcinoma of lung, stage III C34.91 Laterality: right Pneumonia J18.9 Laterality: bilateral Lung location: unspecified part of lung Pneumonia type: due to unspecified organism Diabetes mellitus, type 2 E11.9
[2020-08-31] MEDS: MoRPHine SULFATE 2 MG/ML CARP IV PRN (22:15)
[2020-08-31] MEDS ORDERED: methylPREDNISolone 40 MG in SYRINGE 0 ML IV STA (23:23)
[2020-09-01 00:04] LABS: Base Excess ABG 3.5 mEq/L (-9-1.8); HCO3 ABG 29 mmol/L (19-24); Oxygen Saturation ABG 88.4 % (90-95); PCO2 ABG 49 mmHg (35-46); PO2 ABG 63 mmHg (80-95)
[2020-09-01 00:05] LABS: Allen Test Pos (Pos)
[2020-09-01] MEDS ORDERED: SODIUM CHLORIDE 0.9% NEBU SOLN 3 ML NEB STA (01:17)
[2020-09-01] MEDS ORDERED: MoRPHine SULFATE 2 MG/ML CARP IV STA (01:17)
--- NOTE | 2020-09-01 02:44 | Communication Note ---
Date of Service: September 01, 2020 Overnight developments : Intermittent worsening respiratory distress/hypoxemia the last few nights responding to additional Solu-Medrol doses. Persistent thoracic rash despite holding Bactrim Rx ? Cefepime hypersensitivity (hx pruritus from Keflex) Change Solu-Medrol 125 mg once daily dosing to Solu-Medrol 40 mg TID Hold Cefepime for now, Pulmonology to decide on need for substitute antibiotic. Will relay to AM provider.
[2020-09-01] MEDS: IPRATROPIUM BROMIDE NEB SOLN 0.02% 2.5 ML VIAL INH SCH ×6 (04:06→23:37)
[2020-09-01] MEDS: LEVALBUTEROL 1.25MG/0.5ML NEB INH SCH ×6 (04:06→23:37)
[2020-09-01] MEDS: CEFEPIME 2,000 MG in SYRINGE 0 ML IV SCH (04:06)
[2020-09-01] MEDS ORDERED: ALBUMIN 25% 12.5 GM/50 ML VIAL IV ONE (05:26)
[2020-09-01] MEDS: methylPREDNISolone 40 MG in SYRINGE 0 ML IV SCH ×3 (05:44→20:41)
--- NOTE | 2020-09-01 06:14 | Electrocardiogram Report ---
Test Reason : Blood Pressure : / mmHG Vent. Rate : 106 BPM Atrial Rate : 106 BPM P-R Int : 126 ms QRS Dur : 084 ms QT Int : 334 ms P-R-T Axes : 037 023 025 degrees QTc Int : 443 ms Poor data quality, interpretation may be adversely affected Sinus tachycardia Otherwise normal ECG When compared with ECG of 29-AUG-2020 23:41, No significant change Confirmed by Munir Walsh ([id number]) on 09/01/2020 6:14:33 AM Referred By: REFERRED SELF Confirmed By:Munir Walsh
--- NOTE | 2020-09-01 07:42 | XRay Report ---
SINGLE VIEW CHEST CLINICAL HISTORY: Hypoxia. FINDINGS: An AP, portable, upright chest radiograph is compared to chest x-ray performed earlier the same day 08/31/2020. The examination is degraded by portable technique and patient rotation. A left pendleton bclavian central venous infusion port is unchanged in position. The heart is enlarged noting atherosc lerotic calcification of the thoracic aorta. Advanced emphysema and chronic interstitial thickening is similar to previous. There is chronic elevation of left hemidiaphragm. A mass lesion is again note d at the right apex. Airspace consolidation is again seen throughout both lungs, right greater than l eft. Suspect trace pleural effusions. No pneumothorax is seen. The skeletal structures are osteopenic . The bony thorax appears intact. IMPRESSION: 1. Multifocal airspace consolidation is again seen throughout both lungs, asymmetrically greater on t he right. This is unchanged from today's earlier examination. 2. Suspect small pleural effusions. 3. Cardiomegaly, emphysema, and a right apical pulmonary mass are again noted. ACT 112: Negative or not required by law. Electronically signed by: Dany Allen M.D. 09/01/2020 7:41 AM
[2020-09-01] MEDS: INSULIN ASPART 100 UNITS/ML 3 ML PEN SC SCH ×4 (09:05→20:44)
[2020-09-01] MEDS: ENOXAPARIN INJ 40 MG/0.4 ML SYR SQ SCH (09:18)
[2020-09-01] MEDS: ATORVASTATIN 10 MG TAB PO SCH (09:18)
[2020-09-01] MEDS: ADVANCED PROBIOTIC 1250 MG CAPSULE PO SCH (09:19)
[2020-09-01] MEDS: DOXYCYCLINE HYCLATE 100 MG CAP PO SCH ×2 (09:19→20:41)
[2020-09-01] MEDS: PANTOprazole 40 MG TAB PO SCH (09:19)
[2020-09-01] MEDS: NYSTATIN SUSP 500,000 U/5 ML UDC PO SCH ×3 (09:19→20:41)
[2020-09-01] MEDS: CHOLECALCIFEROL 1,000 UNITS 25 MCG TAB PO SCH (09:20)
[2020-09-01 10:01] LABS: Hematocrit (blood only) 28.9 % (37-47); Hemoglobin 9.1 g/dL (12.0-16.0); Mean Corpuscular Hemoglobin 31.4 pg (25-34); Mean Corpuscular Hgb Conc 31.5 g/dL (32-36); Mean Corpuscular Volume 99.7 fL (80-100); Mean Platelet Volume 10.5 fL (7.4-10.4); Platelet Count 218 K/uL (130-400); RDW Coefficient of Variation 18.8 % (11.5-14.5); RDW Standard Deviation 68.3 fL (36.4-46.3); White Blood Count 12.64 K/uL (4.8-10.8)
[2020-09-01] MEDS: diphenhydrAMINE Capsule 25 MG CAP PO PRN ×2 (12:21→20:35)
[2020-09-01] MEDS: HEPARIN 100 UNIT/ML 5ML FLUSH FLUSH PRN ×2 (12:21→14:19)
[2020-09-01] MEDS: FERROUS SULFATE 325 MG TAB PO SCH ×2 (14:19→17:34)
--- NOTE | 2020-09-01 19:45 | Hospitalist Progress Note ---
Date of Service September 01, 2020 Assessment & Plan (1) Acute respiratory failure with hypoxia: Pneumonia Present on admission with worsening SOB CTA showed persistent 48 mm right apical pulmonary mass. Persistent mediastinal and hilar lymphadenopathy. Progressive bilateral groundglass pulmonary opacities right greater than left. Received Zosyn and Vanco in the ER Continue steroid and neb treatment Continue IV cefepime and Doxycline and Bactrum DS added Sputum cx and blood cx no growth Pulm on board ESR and CRP are elevated, suggestive of an inflammatory process. ANCA, glomerular basement membrane, as well as Fungitell and Legionella urinary antigen are currently pending. Continue Solu-Medrol to 125 mg for potential alveolar hemorrhage or chemotherapeutic pulmonary toxicity. We will make the patient n.p.o. after midnight and reassess tomorrow for potential bronchoscopy with BAL. Continue supplemental oxygen titrated to keep saturations at or above 88%. CPAP at night. Please avoid BIPAP since it is not indicated with normal PCO2 Bronch cancelled due to extreme hypoxic on high flow oxygen supplement Bactrium discontinued for possible rash, but not sure if the rash was due to cefepime because pt has diffuses rash last night Will hold cefepime for now until rash improves IV solumedrol was changed to 40mg TID Will discuss case with pulm about next step since pt continue to be on high flow oxygen Squamous cell carcinoma of lung, stage III: Completed chemotherapy in June Plan to start immunotherapy sometime in the near future Continue outpatient follow up with oncology Anemia Mostly due to chemotherapy Hgb 9.1 today Continue monitor CBC COPD (chronic obstructive pulmonary disease): Pt was discharge on 2L NC in the last admission Continue high oxygen supplement Continue IV steroid Continue Neb treatment Please keep oxygen saturation above 88% DM type 2 Most recent hba1c 6.6 on 08/22/20 Continue insulin sliding scale while on steroid Continue monitor BS DVT px on Lovenox Code Status DNR Admission and Anticipated Discharge Date Admission Date: August 28, 2020 Subjective Pt was seen and examined for follow up respiratory failure Pt said that she feels a little better today She said that she continues desaturated with minimal exertion She said that she started to bring the phlegm up Rash is better after the cefepime was placed on hold discontinued Denies any chest pain, palpitation and fever Physical Exam Physical Exam: General- No acute distress Head- atraumatic Eyes- PERRL, EOMI, ENT- oropharynx clear Neck- supple, no JVD Lungs- +Decreased BS, port in left chest wall Heart- regular rhythm; +systolic murmur Abdomen- normal bowel sounds, soft, nontender Extremities- no calf tenderness Neuro- alert, oriented x 3; PERRL, EOMI; no facial palsy; no dysarthria Skin- warm & dry Results & Data Results & Data ([facility]) Vital Signs (Past 12 Hours) Vital Signs Temp Pulse Pulse Resp BP Pulse Ox 09/01/20 16:00 93 H 09/01/20 15:47 36.6 C 99 H 21 105/68 92 09/01/20 15:09 92 H 24 90 09/01/20 15:08 92 H 24 90 09/01/20 11:48 36.7 C 100 H 19 98/60 L 96 09/01/20 11:13 93 H 26 H 92 09/01/20 11:10 93 H 26 H 92 09/01/20 08:00 96 H 09/01/20 07:49 36.6 C 91 H 24 94/59 L 91
[2020-09-01] MEDS: INSULIN GLARGINE SOLOSTAR 100 UNITS/ML 3 ML PEN SC SCH (20:42)
[2020-09-02] MEDS: LEVALBUTEROL 1.25MG/0.5ML NEB INH SCH ×6 (03:25→23:31)
[2020-09-02] MEDS: IPRATROPIUM BROMIDE NEB SOLN 0.02% 2.5 ML VIAL INH SCH ×6 (03:25→23:30)
[2020-09-02] MEDS: diphenhydrAMINE Capsule 25 MG CAP PO PRN (04:35)
[2020-09-02 07:50] LABS: Hematocrit (blood only) 31.3 % (37-47); Hemoglobin 9.9 g/dL (12.0-16.0); Mean Corpuscular Hemoglobin 31.1 pg (25-34); Mean Corpuscular Hgb Conc 31.6 g/dL (32-36); Mean Corpuscular Volume 98.4 fL (80-100); Mean Platelet Volume 10.8 fL (7.4-10.4); Platelet Count 236 K/uL (130-400); RDW Coefficient of Variation 18.2 % (11.5-14.5); RDW Standard Deviation 66.2 fL (36.4-46.3); Red Blood Count 3.18 M/uL (4.2-5.4)
--- NOTE | 2020-09-02 08:00 | Hospitalist Progress Note ---
Date of Service September 02, 2020 Assessment & Plan (1) Acute respiratory failure with hypoxia: Pneumonia Present on admission with worsening SOB CTA showed persistent 48 mm right apical pulmonary mass. Persistent mediastinal and hilar lymphadenopathy. Progressive bilateral groundglass pulmonary opacities right greater than left. Received Zosyn and Vanco in the ER Continued steroid and neb treatment Continued IV cefepime and Doxycline and Bactrum DS added -due to development of rash, cefepime and Bactrim were put on hold Sputum cx and blood cx no growth Pulmonary medicine consulted ESR and CRP are elevated, suggestive of an inflammatory process. ANCA, glomerular basement membrane, as well as Fungitell and Legionella urinary antigen are currently pending. Continue Solu-Medrol to 125 mg for potential alveolar hemorrhage or chemotherapeutic pulmonary toxicity. Initially plan was for potential bronchoscopy with BAL. However due to patient's hypoxia, patient is high risk for bronchoscopy. Continue supplemental oxygen titrated to keep saturations at or above 88%. CPAP at night. Please avoid BIPAP since it is not indicated with normal PCO2 Bronchoscopy cancelled due to extreme hypoxic on high flow oxygen supplement Bactrium discontinued for possible rash, but not sure if the rash was due to cefepime, therefore cefepime was also put on hold IV solumedrol was changed to 40mg TID Will discuss case with pulm about next step since pt continue to be on high flow oxygen Started patient on aztreonam for gram-negative coverage (09/02/20) Discussed with pulmonology, palliative medicine consult Squamous cell carcinoma of lung, stage IIIc: Completed chemotherapy in June Plan to start immunotherapy sometime in the near future Continue outpatient follow up with oncology - Dr. Castro Patient was seen at the oncology office in June, she was supposed to be seen on August 31, however missed the appointment as she was in the hospital. Sent message to oncology office to notify them that patient is currently hospitalized . Anemia Mostly due to chemotherapy Hgb 9.9 today Continue monitor CBC COPD (chronic obstructive pulmonary disease): Pt was discharged on 2L NC in the last admission Continue high oxygen supplement Continue IV steroid Continue Neb treatment Please keep oxygen saturation above 88% DM type 2 Most recent hba1c 6.6 on 08/22/20 Continue insulin sliding scale while on steroid Continue monitor BS DVT px on Lovenox Code Status on admission was DNR/ DNI -discussed with palliative medicine today (09/02), and patient actually would like to be intubated for 14 days. Code status was therefore changed to full code. Admission and Anticipated Discharge Date Admission Date: August 28, 2020 Subjective Pt was seen and examined for follow up respiratory failure She is on high flow nasal cannula, and continues to desaturate with minimal exertion She brings up some phlegm Rash seems better Denies any chest pain, palpitation and fever Cefepime and Bactrim currently on hold due to rash Discussed with pulmonology, no plan for bronchoscopy at this time due to hypoxia We will consult palliative medicine as well Notify oncology office that patient is currently being hospitalized Review of Systems Review of Systems: All systems reviewed & are unremarkable except as noted in HPI & below Constitutional: no fever and no chills Respiratory: + dyspnea Cardiovascular: no chest pain and no palpitations Gastrointestinal: no abdominal pain and no vomiting Physical Exam Physical Exam: General-elderly female, sitting up in bed, in no acute di stress, on high flow nasal cannula Head- atraumatic Eyes- PERRL, EOMI, ENT- oropharynx clear Neck- supple, no JVD Lungs- +Decreased BS, + diffuse rhonchi, port in left chest wall Heart- regular rhythm; +systolic murmur Abdomen- normal bowel sounds, soft, nontender Extremities- no calf tenderness Neuro- alert, oriented x 3; PERRL, EOMI; no facial palsy; no dysarthria Skin- warm & dry Results & Data Results & Data ([facility]) Vital Signs (Past 12 Hours) Vital Signs Temp Pulse Resp BP Pulse Ox 09/02/20 07:07 36.6 C 89 21 100/65 90 09/02/20 07:00 88 24 94 09/02/20 04:27 36.8 C 90 18 98/58 L 88 L 09/02/20 03:30 97 H 93 09/01/20 23:37 94 H 34 H 87 L 09/01/20 23:08 36.9 C 101 H 40 H 111/59 L 84 L 09/01/20 20:18 36.2 C L 102 H 36 H 112/68 88 L Laboratory Results 09/02/20 09/02/20 09/02/20 Range/Units 11:11 07:27 07:21 WBC (4.8-10.8) K/uL RBC (4.2-5.4) M/uL Hgb (12.0-16.0) g/dL Hct (37-47) % MCV (80-100) fL MCH (25-34) pg MCHC (32-36) g/dL RDW Std Deviation (36.4-46.3) fL RDW Coeff of Teresa (11.5-14.5) % Plt Count (130-400) K/uL MPV (7.4-10.4) fL Sodium 137 (136-145) mmol/L Potassium 4.3 (3.5-5.1) mmol/L Chloride 101 (98-107) mmol/L Carbon Dioxide 32 (21-32) mmol/L Anion Gap 4.0 (3-11) BUN 22 H (7-18) mg/dl Creatinine 0.56 L (0.6-1.2) mg/dl Est Cr Clr Drug Dosing 107.2 ml/min Est GFR ( Amer) 114.2 Est GFR (Non-Af Amer) 98.5 BUN/Creatinine Ratio 38.7 H (10-20) Glucose 126 H (70-99) mg/dl POC Glucose 145 H (70-99) mg/dl Calcium 10.2 H (8.5-10.1) mg/dl Procalcitonin 0.31 (0-0.5) ng/ml Urine Legionella Ag 09/02/20 09/02/20 09/01/20 Range/Units 07:21 07:09 20:40 WBC 14.20 H (4.8-10.8) K/uL RBC 3.18 L (4.2-5.4) M/uL Hgb 9.9 L (12.0-16.0) g/dL Hct 31.3 L (37-47) % MCV 98.4 (80-100) fL MCH 31.1 (25-34) pg MCHC 31.6 L (32-36) g/dL RDW Std Deviation 66.2 H (36.4-46.3) fL RDW Coeff of Teresa 18.2 H (11.5-14.5) % Plt Count 236 (130-400) K/uL MPV 10.8 H (7.4-10.4) fL Sodium (136-145) mmol/L Potassium (3.5-5.1) mmol/L Chloride (98-107) mmol/L Carbon Dioxide (21-32) mmol/L Anion Gap (3-11) BUN (7-18) mg/dl Creatinine (0.6-1.2) mg/dl Est Cr Clr Drug Dosing ml/min Est GFR ( Amer) Est GFR (Non-Af Amer) BUN/Creatinine Ratio (10-20) Glucose (70-99) mg/dl POC Glucose 130 H 159 H (70-99) mg/dl Calcium (8.5-10.1) mg/dl Procalcitonin (0-0.5) ng/ml Urine Legionella Ag 09/01/20 08/31/20 Range/Units 16:20 16:09 WBC (4.8-10.8) K/uL RBC (4.2-5.4) M/uL Hgb (12.0-16.0) g/dL Hct (37-47) % MCV (80-100) fL MCH (25-34) pg MCHC (32-36) g/dL RDW Std Deviation (36.4-46.3) fL RDW Coeff of Teresa (11.5-14.5) % Plt Count (130-400) K/uL MPV (7.4-10.4) fL Sodium (136-145) mmol/L Potassium (3.5-5.1) mmol/L Chloride (98-107) mmol/L Carbon Dioxide (21-32) mmol/L Anion Gap (3-11) BUN (7-18) mg/dl Creatinine (0.6-1.2) mg/dl Est Cr Clr Drug Dosing ml/min Est GFR ( Amer) Est GFR (Non-Af Amer) BUN/Creatinine Ratio (10-20) Glucose (70-99) mg/dl POC Glucose 171 H (70-99) mg/dl Calcium (8.5-10.1) mg/dl Procalcitonin (0-0.5) ng/ml Urine Legionella Ag SEE NOTE Medications Administered Current Inpatient Medications Acetaminophen (Acetaminophen 325 Mg Tab) 650 mg PO Q4H PRN PRN Reason: Pain or Fever Stop: 09/27/20 02:06 Last Admin: 08/31/20 14:08 Dose: 650 mg Documented by: Atorvastatin Calcium (Atorvastatin 10 Mg Tab) 10 mg PO DAILY ROSANNE Stop: 09/27/20 08:59 Last Admin: 09/01/20 09:18 Dose: 10 mg Documented by: Dextrose (Dextrose 50% 50 Ml Syringe) 25 - 50 ml IV UD PRN; Protocol PRN Reason: Hypoglycemia Protocol Stop: 09/27/20 02:06 Diphenhydramine HCl (Diphenhydramine Capsule 25 Mg Cap) 25 mg PO Q8H PRN PRN Reason: Rash Stop: 10/01/20 09:17 Last Admin: 09/02/20 04:35 Dose: 25 mg Documented by: Doxycycline Hyclate (Doxycycline Hyclate 100 Mg Cap) 100 mg PO BID ROSANNE Stop: 09/04/20 08:59 Last Admin: 09/01/20 20:41 Dose: 100 mg Documented by: Enoxaparin Sodium (Enoxaparin Inj 40 Mg/0.4 Ml Syr) 40 mg SQ QAM ROSANNE Stop: 09/27/20 08:59 Last Admin: 09/01/20 09:18 Dose: 40 mg Documented by: Ferrous Sulfate (Ferrous Sulfate 325 Mg Tab) 325 mg PO BID@1200,1800 [facility] Stop: 09/27/20 11:59 Last Admin: 09/01/20 17:34 Dose: 325 mg Documented by: Glucagon (Glucagon For Inj 1 Mg Vial) 1 mg SQ UD PRN; Protocol PRN Reason: Hypoglycemia Protocol Stop: 09/27/20 02:06 Glucose (Glucose 10 Tabs/Tube) 4 - 8 tabs PO UD PRN; Protocol PRN Reason: Hypoglycemia Protocol Stop: 09/27/20 02:06 Glucose (Glucose 40% Gel 15 Gm Tube) 15 - 30 gm PO UD PRN; Protocol PRN Reason: Hypoglycemia Protocol Stop: 09/27/20 02:06 Heparin Sodium (Porcine) (Heparin 100 Unit/Ml 5ml Flush) 5 ml FLUSH PRN PRN PRN Reason: Flush Stop: 10/01/20 01:07 Last Admin: 09/01/20 14:19 Dose: 5 ml Documented by: Promethazine HCl 12.5 mg/ (Sodium Chloride) 50.5 mls @ 202 mls/hr IV Q6H PRN PRN Reason: Nausea And Vomiting Stop: 09/27/20 02:06 Cefepime HCl 2,000 mg/ Syringe 20 mls @ 5 mls/min IV Q8H ROSANNE; Protocol Stop: 09/04/20 09:59 Last Admin: 09/01/20 04:06 Dose: Not Given Documented by: Lorazepam (Ativan) 0.25 mg in 0.5 mls @ 0.5 mls/min IV Q6H PRN PRN Reason: Anxiety Stop: 09/30/20 03:10 Methylprednisolone 40 mg/ (Syringe) 0.64 mls @ 1.5 mls/min IV TID ROSANNE Stop: 10/01/20 05:29 Last Admin: 09/01/20 20:41 Dose: 1.5 mls/min Documented by: Insulin Aspart (Insulin Aspart 100 Units/Ml 3 Ml Pen) 0 units SC ACHS ROSANNE Stop: 09/27/20 02:06 Last Admin: 09/01/20 20:44 Dose: Not Given Documented by: Insulin Glargine (Insulin Glargine Solostar 100 Units/Ml 3 Ml Pen) 10 units SC HS ROSANNE Stop: 09/27/20 20:29 Last Admin: 09/01/20 20:42 Dose: 10 units Documented by: Ipratropium [place] (Ipratropium [place] Neb Soln 0.02% 2.5 Ml Vial) 0.5 mg INH Q4R ROSANNE Stop: 09/28/20 22:59 Last Admin: 09/02/20 07:00 Dose: 0.5 mg Documented by: Lactobacillus Acidoph/Casei/Rhamnos (Advanced Probiotic 1250 Mg Capsule) 2 cap PO DAILY ROSANNE Stop: 09/27/20 08:59 Last Admin: 09/01/20 09:19 Dose: 2 cap Documented by: Levalbuterol HCl (Levalbuterol 1.25mg/0.5ml Neb) 1.25 mg INH Q4R ROSANNE Stop: 09/28/20 22:59 Last Admin: 09/02/20 07:00 Dose: 1.25 mg Documented by: Miscellaneous (Carbohydrates For Hypoglycemia ) 15 - 30 gm PO UD PRN PRN Reason: Hypoglycemia Protocol Stop: 09/27/20 02:06 Miscellaneous Information (Cefepime Consult Active) 1 ea N/A UD PRN PRN Reason: Consult Stop: 09/27/20 08:59 Morphine Sulfate (Morphine Sulfate 2 Mg/Ml Carp) 2 mg IV Q4H PRN PRN Reason: Pain Stop: 09/14/20 03:05 Last Admin: 08/31/20 22:15 Dose: 2 mg Documented by: Nystatin (Nystatin Susp 500,000 U/5 Ml Udc) 10 ml PO TID [facility] Stop: 09/10/20 13:59 Last Admin: 09/01/20 20:41 Dose: 10 ml Documented by: Pantoprazole Sodium (Pantoprazole 40 Mg Tab) 40 mg PO DAILY [facility] Stop: 09/27/20 08:59 Last Admin: 09/01/20 09:19 Dose: 40 mg Documented by: Tramadol HCl (Tramadol Hcl 50 Mg Tablet) 25 - 50 mg PO Q4H PRN PRN Reason: Pain Stop: 09/27/20 02:06 Vitamin D (Cholecalciferol 1,000 Units 25 Mcg Tab) 5,000 units PO QAM [facility] Stop: 09/28/20 09:44 Last Admin: 09/01/20 09:20 Dose: 5,000 units Documented by:
[2020-09-02] MEDS: DOXYCYCLINE HYCLATE 100 MG CAP PO SCH ×2 (08:05→21:29)
[2020-09-02] MEDS: NYSTATIN SUSP 500,000 U/5 ML UDC PO SCH ×3 (08:05→21:29)
[2020-09-02] MEDS: ENOXAPARIN INJ 40 MG/0.4 ML SYR SQ SCH (08:06)
[2020-09-02] MEDS: CHOLECALCIFEROL 1,000 UNITS 25 MCG TAB PO SCH (08:06)
[2020-09-02] MEDS: ATORVASTATIN 10 MG TAB PO SCH (08:06)
[2020-09-02] MEDS: ADVANCED PROBIOTIC 1250 MG CAPSULE PO SCH (08:07)
[2020-09-02] MEDS: PANTOprazole 40 MG TAB PO SCH (08:07)
[2020-09-02] MEDS: methylPREDNISolone 40 MG in SYRINGE 0 ML IV SCH ×3 (08:07→21:29)
[2020-09-02 08:21] LABS: BUN Creatinine Ratio 38.7 (10-20); Calcium 10.2 mg/dl (8.5-10.1); Creatinine Clr Calc Pharmacy 107.2 ml/min; Est GFR (African American) 114.2; Est GFR (Non-African American) 98.5; Potassium 4.3 mmol/L (3.5-5.1)
[2020-09-02] MEDS: INSULIN ASPART 100 UNITS/ML 3 ML PEN SC SCH ×4 (08:26→21:45)
--- NOTE | 2020-09-02 08:46 | Pulmonology Progress Note ---
Date of Service September 01, 2020 Assessment & Plan (1) Acute respiratory failure with hypoxia: Impression: 65-year-old female with stage IIIc non-small cell lung cancer treated with paclitaxel and carboplatin and radiation therapy admitted now with progressive infiltrates after receiving a course of outpatient antibiotics. The differential is broad and could include opportunistic infections including pneumocystis. Pulmonary hemorrhage or pulmonary toxicity related to chemotherapeutic agents would also be in the differential. Delayed radiation toxicity possible as well although the infiltrates are well outside the radiation portal han. Recommendations: 1.Acute respiratory failure with hypoxia:Patient has a history of stage IIIc lung cancer with mass demonstrated on imaging. She is status post chemotherapy as well as XRT.Differential diagnosis includes pulmonary hemorrhage, bacterial infection, viral infection, pulmonary fibrosis, delayed radiation toxicity. Procalcitonin is negative. Patient is empirically on antibiotics.Patient was started on Bactrim for possible PCP secondary to immunosuppression from chemotherapy.However, patient developed what appears to be an acute drug reaction rash after starting Bactrim.Bactrim was been discontinued.rash is persistent. Patient has also been stopped with regards to cefepime. She continues on doxycycline. Induced sputum with hypertonic saline sent for culture and sensitivities specifically looking for PCP.Patient is now requiring high flow supplemental oxygen.Continue to maintain SaO2 between 88 and 92%.patient does have leukocytosis but this is most likely due to high-dose steroids. Continue patient out of bed to chair. Also, continue incentive spirometry today. 2. Rash:Patient developed a rash on her back, chest, abdomen, thighs after starting Bactrim.Bactrim has been discontinued.Rash is not symptomatic.Placed sulfa/Bactrim on allergy list and follow. Cefepime has also been discontinued secondary to rash. Patient did receive 1 dose of diphenhydramine although she had no pruritus or pain from rash. 3. Abnormal CT scan chest:Unclear on etiology.Plan was to pursue bronchoscopy for further diagnosis.However, patient continues with persistent hypoxia with minimal activity. Continue high flow oxygen.due to tenuous oxygenation status, no plans for bronchoscopy at this time. Continue with diet as tolerated. We will continue to reevaluate daily. Continue methylprednisolone. Patient had been receiving 125 mg IV daily for differential including potential alveolar hemorrhage or chemotherapeutic pulmonary toxicity. Due to hypoxia overnight, hospitalist changed to methylprednisolone 40 mg IV 3 times daily. Patient's ESR and CRP are elevated. ANCA, glomerular basement membrane, as well as Fungitell and Legionella urinary antigen continue to be pending. 4.Diabetes mellitus type 2:Patient is on Metformin at home.Will use Lantus and NovoLog sliding scale due to high doses of steroids.Continue to follow BSG and treat. Patient on high-dose methylprednisolone. 5.Pneumonia:Patient with a negative procalcitonin. Empirically being treated with doxycycline. Bactrim and cefepime discontinued secondary to rash. This had been started due to elevated LDH and possibility of PCP. Repeat procalcitonin in the morning 6. Oral candidiasis: Improved per patient. Continue nystatin swish and swallow 10 mL 3 times daily Thank you for including us in the care of this patient. We will continue to follow along with you. (2) Abnormal CT scan of lung: Impression: 65-year-old female with stage IIIc non-small cell lung cancer treated with paclitaxel and carboplatin and radiation therapy admitted now with progressive infiltrates after receiving a course of outpatient antibiotics. The differential is broad and would include opportunistic infections including pneumocystis. Pulmonary hemorrhage or pulmonary toxicity related to chemotherapeutic agents would also be in the differential. Delayed radiation toxicity I suppose is a possibility as well although the infiltrates are well outside the radiation portal han. Recommendations: 1. ESR and CRP are elevated, suggestive of an inflammatory process. ANCA, glomerular basement membrane, as well as Fungitell and Legionella urinary antigen are currently pending. 2. Would continue cefepime and doxycycline and Bactrim. Bactrim was started due to elevated LDH and possibility of pneumocystis 3. We will continue the patient's Solu-Medrol to 125 mg for potential alveolar hemorrhage or chemotherapeutic pulmonary toxicity. 4. We will make the patient n.p.o. after midnight and reassess tomorrow for potential bronchoscopy with BAL. Her oxygenation is somewhat tenuous currently and it may be reasonable to continue empiric therapy in the hope that the patient improves clinically 5. Continue supplemental oxygen titrated to keep saturations at or above 88%. Patient felt better with positive airway pressure last night. We will put in an order for CPAP at night. The patient is not having ventilatory difficulties and would not recommend BiPAP routinely. Alternatively, she can be placed on heated high flow oxygen therapy which would provide a small degree of positive airway pressure. There is no indication for BiPAP. The patient is at risk for progressive lung disease especially given the rapid progression of her infiltrates on CT scan. DNR/DNI status was confirmed with the patient. We will continue to follow with you (3) COPD (chronic obstructive pulmonary disease): (4) Squamous cell carcinoma of lung, stage III: Laterality: right Qualified Code(s): C34.91 - Malignant neoplasm of unspecified part of right bronchus or lung (5) Pneumonia: Laterality: bilateral Lung location: unspecified part of lung Pneumonia type: due to unspecified organism Qualified Code(s): J18.9 - Pneumonia, unspecified organism (6) Diabetes mellitus, type 2: Admission and Anticipated Discharge Date Admission Date: August 28, 2020 Subjective Attending: Dr. Bonds Patient seen and examined on 09/01/2020 at 1700. Her niece is with her in the room at the time of my examination and interview. Patient states that she continues to be hypoxic but is asymptomatic. She has no chest pain or tightness. She denies any fever or chills. She has no significant cough or sputum production. She does request that she stay on high flow as compared to CPAP or BiPAP. She currently has minimal hypercapnia and has no change in alte red mental status. She has no new acute complaints. Review of Systems Review of Systems: All systems reviewed & are unremarkable except as noted in Subjective Physical Exam Physical Exam: GENERAL : No acute distress EYES: No icterus, gaze conjugate NOSE: No evidence of epistaxis MOUTH: No lesions or candidiasis NECK: Supple LUNGS: Bibasilar crackles. Patient also has some faint rhonchi at the bilateral upper han. No appreciated bronchospasm on exam. HEART: Regular, rate controlled ABDOMEN: Soft, NT, ND, BS Present EXTREMITIES: No LE edema, pedal pulses intact NEURO: A&OX3 Results & Data Results & Data ([facility]) Vital Signs (Past 12 Hours) Vital Signs Temp Pulse Resp BP Pulse Ox 09/02/20 07:07 36.6 C 89 21 100/65 90 09/02/20 07:00 88 24 94 09/02/20 04:27 36.8 C 90 18 98/58 L 88 L 09/02/20 03:30 97 H 93 09/01/20 23:37 94 H 34 H 87 L 09/01/20 23:08 36.9 C 101 H 40 H 111/59 L 84 L PG Care Time/CCT Total # of Minutes Spent Total Time Spent with Patient: Total time spent is greater than 50% in coordination of care (as documented) at patient's floor/unit and/or counseling patient: Coding Level of Care Code 91230 Subseq Hosp Care Lvl 2 Diagnoses Acute respiratory failure with hypoxia J96.[address] scan of lung R91.8 COPD (chronic obstructive pulmonary disease) J44.9 Squamous cell carcinoma of lung, stage III C34.91 Laterality: right Pneumonia J18.9 Laterality: bilateral Lung location: unspecified part of lung Pneumonia type: due to unspecified organism Diabetes mellitus, type 2 E11.9
[2020-09-02] MEDS: AZTREONAM 1,000 MG in DEXTROSE 5% 100 ML IV SCH ×2 (11:04→17:49)
[2020-09-02] MEDS: FERROUS SULFATE 325 MG TAB PO SCH ×2 (12:23→17:50)
--- NOTE | 2020-09-02 14:46 | Palliative Care Consultation ---
Date of Consultation September 02, 2020 Assessment & Plan (1) Palliative care encounter: I met with Mrs. Wetzel at bedside. She reports to me that she feels well other than being short of breath. We discussed her escalating oxygen needs and concern about prognosis. She understands this and has been closely watching the O2 sat numbers on her monitor. We talked about her current order that says do not resuscitate or intubate and I asked her to tell me more about her thoughts on that. She told me that she knows that things are bad and that she has thought about it and decided that she would want to have intubation and vent support if needed. We talked about her prognosis and lung cancer and she is very much aware that her prognosis is poor. "I know that, that's why I would only want to be on the breathing machine for 14 days". We discussed the likelihood that she would not be able to improve and wean off the vent. We also discussed that her daughter would be in the position of making the decision to withdraw care if that were to happen. She told me "that's why I'm making it clear". I spoke with her daughter, Nguyen Dao, on the phone. She was aware that her mother had previously discussed being DNR but is absolutely supportive of the change to proceed with intubation if indicated. Discussed with RN and notified Dr. Mccann and pulmonology by text. Palliative care will follow. (2) Acute respiratory failure with hypoxia: (3) COPD (chronic obstructive pulmonary disease): (4) Pneumonia: Laterality: bilateral Lung location: unspecified part of lung Pneumonia type: due to unspecified organism Qualified Code(s): J18.9 - Pneumonia, unspecified organism (5) Squamous cell carcinoma of lung, stage III: Laterality: right Qualified Code(s): C34.91 - Malignant neoplasm of unspecified part of right bronchus or lung History of Present Illness Reason for Consultation: goals of care Requesting Physician: Dr. Mccann Attending Physician: Kenny Mccann MD History of Present Illness 65 yo lady who was hospitalized earlier this month for pneumonia and sepsis. She had progressive symptoms on outpatient antibiotic therapy and has been readmitted with hypoxic respiratory failure. She is currently on high flow O2 at 40 L, 95% and oxygen saturation is in the low 80s, dipping into high 70s with conversation. She has a history of NSCLC and has completed chemotherapy. She had been scheduled to start immunotherapy which has been delayed due to her hospitalization. She was noted to have a 4.8cm right apical mass with mediastinal and hilar adenopathy and bilateral ground glass opacities on CT at admission. She has comorbid COPD and diabetes. Unfortunately she has been too hypoxic for bronchoscopy. We have been consulted to assist with goals of care. Allergies Allergy/AdvReac Type Severity Reaction Status Date / Time cephalexin Allergy Intermediate ITCHING Verified 08/22/20 00:43 Sulfa (Sulfonamide Allergy Intermediate Rash Verified 09/01/20 04:51 Antibiotics) sULFA Allergy Rash Uncoded 09/01/20 04:51 Home Medications Medication Instructions Recorded Confirmed Type albuterol sulfate 1 inh INHALATION QID PRN 10/28/19 08/27/20 History cholecalciferol (vitamin D3) 5,000 unit PO QAM 10/28/19 08/27/20 History [Vitamin D3] fluticasone propion-salmeterol 1 inh INHALATION BID 04/01/20 08/27/20 History [Advair Diskus] atorvastatin 10 mg tablet 10 mg PO DAILY 06/15/20 08/27/20 History ondansetron HCl 8 mg tablet 8 mg PO Q8H 06/22/20 08/27/20 History prochlorperazine maleate 10 mg 10 mg PO Q6H PRN 06/22/20 08/27/20 History tablet omeprazole 20 mg tablet,delayed 20 mg PO DAILY 07/13/20 08/27/20 History release Flovent HFA 1 puff INHALATION BID PRN 08/22/20 08/27/20 History Lactobacillus acidoph-L.bulgar 1 tab PO BID #30 tab 08/25/20 08/27/20 Rx [Lactinex] ferrous sulfate 325 mg PO BID 30 Days #60 tab 08/25/20 08/27/20 Rx levalbuterol HCl 1.25 mg NEB Q4H PRN 30 Days #100 ea 08/25/20 08/27/20 Rx levofloxacin 750 mg PO DAILY@1100 5 Days #5 tab 08/25/20 08/27/20 Rx metformin 500 mg PO DAILY 08/27/20 08/27/20 History Patient History Medical History Asthma Cardiac murmur Trace to mild sclerotic changes and regurgitation noted on 2019 echo COPD (chronic obstructive pulmonary disease) Diabetes mellitus, type 2 Exertional shortness of breath GERD (gastroesophageal reflux disease) Hyperlipidemia LAD (lymphadenopathy), mediastinal Seasonal allergies Squamous cell carcinoma of lung, stage III (10/30/19) UTI (urinary tract infection) FREQUENT Surgical History H/O wrist surgery LEFT History of ankle surgery RT (X2) History of bilateral tubal ligation History of bronchoscopy (10/30/19) EBUS History of cholecystectomy History of esophagogastroduodenoscopy (EGD) History of lung biopsy (04/01/20) History of tonsillectomy History of tooth extraction Family History Mother , Passed age 60 of CHF/Diabetes Complications Family history of diabetes mellitus Diabetes Father , Passed age 56 of CHF Diabetes Sister , Passed age 60 of [place] Myocardial infarction Sister , Passed age 60 of diabetic/kidney complications No problems noted. Sister , Passed age 61 of [place] Myocardial infarction Sister No problems noted. Sister No problems noted. Brother , Passed age 21 of accident No problems noted. Brother , Passed in 40's of [place] No problems noted. Brother , Passed age 36 of unknown No problems noted. Daughter No problems noted. Daughter No problems noted. Daughter No problems noted. Grandfather (Maternal) Diabetes Grandmother (Maternal) Diabetes Other Asthma Heart disease Social History Smoking Status: Former smoker Tobacco Type: Cigarettes packs per day: 1.5; Years Smoked: 36; Cigarettes Per Day: 1.5 pack/day; Second Hand Exposure: No; Do You Dip or Chew Tobacco: No; Tobacco Cessation Education Requested by Patient: No Hx Alcohol Use: Yes Alcohol type: beer Hx Substance Use: No Preferred Language: Bangladeshi Communication Ability: Effective Visual Impairment: Limited Hearing Ability: Normal Grader Tender Required: No Beliefs That Will Affect Care: None marital status: Unknown Current Living Situation: Alone Current Living Situation Comment: Daughter Nguyen comes by the house everyday current occupational status: retired 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 How many Children do You have: 2 Other Information That Helps Us Care for You: No Feels Safe at Home: Yes Safety Concerns: Feels Safe At This Time Assistive Devices: Oxygen - Continuous Assistive Devices Comment: Patient was recently discharged from this hospital on 2L nasal cannula Review of Systems Review of Systems: [place] Symptom Assessment Scale Pain0/3 Dyspnea3/3 Nausea0/3 Anxiety1/3 Drowsiness 0/3 Palliative Performance Score 40% Physical Exam Constitutional: + frail appearing; + uncomfortable Respiratory: + respiratory distress, + labored breathing, + uses accessory muscles and + tachypneic Cardiovascular: Rate/Rhythm: + tachycardic Gastrointestinal (Abdomen): Inspection/Auscultation: abdomen not distended Musculoskeletal: Extremities: extremities normal to inspection Neurologic: awake; no focal motor deficits and not confused Psychiatric: Orientation: alert and oriented x 3 Results & Data ([facility]) Vital Signs (Past 12 Hours) Vital Signs Temp Pulse Pulse Resp BP Pulse Ox 09/02/20 11:20 102 H 09/02/20 11:01 98.2 F 95 H 21 96/60 L 91 09/02/20 10:56 94 H 24 89 L 09/02/20 07:07 97.9 F 89 21 100/65 90 09/02/20 07:00 88 24 94 09/02/20 04:27 98.2 F 90 18 98/58 L 88 L 09/02/20 03:30 97 H 93 PG Care Time/CCT Total # of Minutes Spent Total Time Spent with Patient: Total time spent is greater than 50% in coordination of care (as documented) at patient's floor/unit and/or counseling patient: total time spent 65 minutes with more than 50% of time spent on goals of care, family communication and support, coordination of care. Coding Level of Care Code 94645 Inpt Consult Level 3 Diagnoses Palliative care encounter Z51.5 Acute respiratory failure with hypoxia J96.01 COPD (chronic obstructive pulmonary disease) J44.9 Pneumonia J18.9 Laterality: bilateral Lung location: unspecified part of lung Pneumonia type: due to unspecified organism Squamous cell carcinoma of lung, stage III C34.91 Laterality: right
--- NOTE | 2020-09-02 17:01 | Pulmonology Progress Note ---
Date of Service September 02, 2020 Assessment & Plan (1) Acute respiratory failure with hypoxia: Impression: 65-year-old female with stage IIIc non-small cell lung cancer treated with paclitaxel and carboplatin and radiation therapy admitted now with progressive infiltrates after receiving a course of outpatient antibiotics. The differential is broad and could include opportunistic infections including pneumocystis. Pulmonary hemorrhage or pulmonary toxicity related to chemotherapeutic agents would also be in the differential. Delayed radiation toxicity possible as well although the infiltrates are well outside the radiation portal han. Long discussion with family today by Zoom regarding disposition. Patient wishes to be DNR/DNI and focus on quality of life and visit with family while she can. Recommendations: 1.Acute respiratory failure with hypoxia:Patient has a history of stage IIIc lung cancer with mass demonstrated on imaging. She is status post weekly chemotherapy with Taxol and carboplatin as well as 6000 cGy XRT which was completed to 121.Differential diagnosis includes pulmonary hemorrhage, bacterial infection, viral infection, pulmonary fibrosis, delayed radiation toxicity. 3rd Procalcitonin is negative. Patient is empirically on antibiotics.Patient was started on Bactrim for possible PCP secondary to immunosuppression from chemotherapy.However, patient developed what appears to be an acute drug reaction rash after starting Bactrim.Bactrim was been discontinued.rash is persistent. Patient has also been stopped with regards to cefepime. She continues on doxycycline. We will add aztreonam for total of 7 days. Induced sputum with hypertonic saline sent for culture and sensitivities specifically looking for PCP.Patient is now requiring high flow supplemental oxygen.Continue to maintain SaO2 >90%. Leukocytosis improved to 14,000. This is most likely due to high-dose steroids. Continue patient out of bed to chair. Also, continue incentive spirometry today. Also, obtain ABG with morning labs as well as portable chest x-ray in the morning 2. Rash:Patient developed a rash on her back, chest, abdomen, thighs after starting Bactrim.Bactrim has been discontinued.Rash is not symptomatic.Placed sulfa/Bactrim on allergy list and follow. Cefepime has also been discontinued secondary to rash. Patient did receive 1 dose of diphenhydramine although she had no pruritus or pain from rash. 3. Abnormal CT scan chest:Unclear on etiology.Plan was to pursue bronchoscopy for further diagnosis.However, patient continues with persistent hypoxia with minimal activity. Continue high flow oxygen.due to tenuous oxygenation status, no plans for bronchoscopy at this time. Continue with diet as tolerated. We will continue to reevaluate daily. Continue methylprednisolone. Patient had been receiving 125 mg IV daily for differential including potential alveolar hemorrhage or chemotherapeutic pulmonary toxicity. Due to hypoxia overnight, hospitalist changed to methylprednisolone 40 mg IV 3 times daily. Patient's ESR and CRP are elevated. ANCA, glomerular basement membrane, as well as Fungitell and Legionella urinary antigen continue to be pending. 4.Diabetes mellitus type 2:Patient is on Metformin at home.Will use Lantus and NovoLog sliding scale due to high doses of steroids.Continue to follow BSG and treat. Patient on high-dose methylprednisolone. 5.Pneumonia:Patient with a negative procalcitonin. Empirically being treated with doxycycline. Bactrim and cefepime discontinued secondary to rash. Start 7 days of aztreonam beginning today. This had been started due to elevated LDH and possibility of PCP. Repeat procalcitonin this morning was negative 6. Oral candidiasis: Improved per patient. Continue nystatin swish and swallow 10 mL 3 times daily 7. COPD: Patient carries a diagnosis of COPD. I did review pulmonary function testing completed 10/25/2019. Patient does not have any significant obstructive lung dysfunction. There is insignificant bronchodilator response. Lung volumes are normal. The patient does have a mild decrease in DLCO. Would not treat as a COPD patient although patient does have [id number] smoking history. She states that she quit smoking in 2006. Would target oxygenation above 90% SaO2 in this patient. If patient further decompensates, will check an arterial blood gas as well as a repeat chest x-ray. 7. CODE STATUS: Long discussion with assume with patient, daughter Dayanna in [place] who is a geriatric nurse, and daughter Nguyen who is present in the room. At this point, patient would like to continue to focus on quality of life and would like to not be intubated or have any heroic measures should she decline. She is aware that her oxygenation status is declining and that most likely she will require morphine drip for comfort and may pass away this hospital stay. Both daughters are in agreement to focus on quality of life and palliation at this time. Will change CODE STATUS to DNR/DNI. Telephone jorge luis guzmane call with Dr. Bonds and Dr. William with separate discussion with Dr. Mccann who are all in agreement with this change in status. Thank you for including us in the care of this patient. We will continue to follow along with you. (2) Abnormal CT scan of lung: (3) COPD (chronic obstructive pulmonary disease): (4) Squamous cell carcinoma of lung, stage III: Laterality: right Qualified Code(s): C34.91 - Malignant neoplasm of unspecified part of right bronchus or lung (5) Pneumonia: Laterality: bilateral Lung location: unspecified part of lung Pneumonia type: due to unspecified organism Qualified Code(s): J18.9 - Pneumonia, unspecified organism (6) Diabetes mellitus, type 2: Admission and Anticipated Discharge Date Admission Date: August 28, 2020 Subjective Attending: Dr. Bonds Patient was seen and examined at bedside. Daughter Nguyen was also present. Zoom session set up with daughter Dayanna in [place] who is a geriatric nurse. Patient had questions regarding intubation and what it would mean. I did explain that the benefits of intubation would be that she could rest as we would breathe for her. She would also be sedated so she would not have the anxiety. It would allow us to do a bronchoscopy for possibility of further diagnosis. In further discussion, she did not realize that she would be sedated and would not be able to talk. In discussion with the patient her daughter Dayanna Langford and her daughter Nguyen it was decided that she would not want to be intubated as she feels as though there is a high risk that she would not be able to be extubated. At this point she chooses to continue with current treatment of antibiotics and steroids with consideration of palliative care should her o xygenation worsen. The daughters did ask if she could go home on hospice. I explained that with her oxygen requirements being high flow that we could not provide liquid oxygen at home to meet her oxygen requirements. They also asked about visitation. I informed them that we just change her policy and the visiting hours were from 2 PM to 6 PM and we would allow 1 visitor at a time. Regarding review of systems, patient states that she is only short of breath with activity and with conversation. She was out of bed to the chair for an hour and a half today. She denies any chest pain or tightness. She has a cough but it is minimal and nonproductive. She has no fever or chills. She denies any sweats. She has no night sweats. She denies nausea or vomiting. She still has limited appetite and does not eat large volumes of food. She has no other acute complaints at this time. Review of Systems Review of Systems: All systems reviewed & are unremarkable except as noted in Subjective Physical Exam Physical Exam: GENERAL : No acute distress. Pleasant. Talkative. Demonstrates some conversational dyspnea EYES: No icterus, gaze conjugate NOSE: No evidence of epistaxis MOUTH: No lesions or candidiasis. Mucosa is moist. Tongue is midline. NECK: Supple. High flow nasal cannula in place LUNGS: Some bibasilar Rales. No appreciation of rhonchi or bronchospasm HEART: Regular, rate controlled in the 80s and 90s but does become tachycardic above 100 with exertion or speech ABDOMEN: Soft, NT, ND, BS Present EXTREMITIES: No LE edema, pedal pulses intact NEURO: A&OX3 Results & Data Results & Data ([facility]) Vital Signs (Past 12 Hours) Vital Signs Temp Pulse Pulse Resp BP Pulse Ox 09/02/20 16:40 36.8 C 103 H 21 99/63 L 85 L 09/02/20 15:27 95 H 09/02/20 14:57 95 H 24 89 L 09/02/20 14:55 95 H 24 89 L 09/02/20 11:20 102 H 09/02/20 11:01 36.8 C 95 H 21 96/60 L 91 09/02/20 10:56 94 H 24 89 L 09/02/20 07:07 36.6 C 89 21 100/65 90 09/02/20 07:00 88 24 94 Laboratory Results 09/02/20 07:21 09/02/20 07:21 08/27/20 08/28/20 08/29/20 22:28 20:57 21:30 ABG pH 7.46 H Cancelled ABG pCO2 35 Cancelled ABG pO2 59 L Cancelled ABG HCO3 24 Cancelled ABG O2 Saturation 90.8 Cancelled ABG Base Excess 0.9 Cancelled VBG pH 7.45 H VBG pCO2 42 VBG pO2 27 VBG HCO3 28 VBG O2 Saturation < 60.0 VBG Base Excess 3.6 08/29/20 08/31/20 08/31/20 22:23 01:53 23:48 ABG pH 7.41 7.39 7.40 ABG pCO2 46 48 H 49 H ABG pO2 75 L 74 L 63 L ABG HCO3 28 H 29 H 29 H ABG O2 Saturation 94.6 93.6 88.4 L ABG Base Excess 3.2 H 3.0 H 3.5 H VBG pH VBG pCO2 VBG pO2 VBG HCO3 VBG O2 Saturation VBG Base Excess PG Care Time/CCT Total # of Minutes Spent Total Time Spent with Patient: Total time spent is greater than 50% in coordination of care (as documented) at patient's floor/unit and/or counseling patient: 75 minutes including 3 visits to patient during the day, Zoom session with family, discussion with consultants and primary team. Coding Level of Care Code 35199 Subseq Hosp Care Lvl 3 (25 - SIGNIFICANT, SEPARATELY IDENTIFIABLE ) Diagnoses Acute respiratory failure with hypoxia J96.[address] scan of lung R91.8 COPD (chronic obstructive pulmonary disease) J44.9 Squamous cell carcinoma of lung, stage III C34.91 Laterality: right Pneumonia J18.9 Laterality: bilateral Lung location: unspecified part of lung Pneumonia type: due to unspecified organism Diabetes mellitus, type 2 E11.9 Time Spent (min) 75
--- NOTE | 2020-09-02 18:55 | XRay Report ---
SINGLE VIEW CHEST CLINICAL HISTORY: Hypoxia. FINDINGS: An AP, portable, upright chest radiograph is compared to studies dated 08/31/2020. The exami nation is degraded by portable technique and patient rotation. A left subclavian central venous infus ion port is unchanged in position. The heart is enlarged noting atherosclerotic calcification of the thoracic aorta. Advanced emphysema and chronic interstitial thickening is similar to previous. There is chronic elevation of left hemidiaphragm. A mass lesion is again noted at the right apex. Airspace consolidation is again seen throughout both lungs, right greater than left. Suspect trace pleural ef fusions. No pneumothorax is seen. The skeletal structures are osteopenic. The bony thorax appears int act. Cholecystectomy clips are seen in the right upper quadrant. IMPRESSION: 1. Multifocal airspace consolidation is again seen throughout both lungs, asymmetrically greater on t he right. This is unchanged from 08/31/2020. 2. Suspect small pleural effusions. 3. Cardiomegaly, emphysema, and a right apical pulmonary mass are again noted. ACT 112: Negative or not required by law. Electronically signed by: Dany Allen M.D. 09/02/2020 6:53 PM
[2020-09-02] MEDS: INSULIN GLARGINE SOLOSTAR 100 UNITS/ML 3 ML PEN SC SCH (21:45)
[2020-09-03] MEDS: AZTREONAM 1,000 MG in DEXTROSE 5% 100 ML IV SCH ×3 (02:12→17:11)
[2020-09-03] MEDS: IPRATROPIUM BROMIDE NEB SOLN 0.02% 2.5 ML VIAL INH SCH ×6 (03:20→23:04)
[2020-09-03] MEDS: LEVALBUTEROL 1.25MG/0.5ML NEB INH SCH ×6 (03:20→23:03)
[2020-09-03] MEDS: DOXYCYCLINE HYCLATE 100 MG CAP PO SCH ×2 (07:48→21:07)
[2020-09-03] MEDS: methylPREDNISolone 40 MG in SYRINGE 0 ML IV SCH ×3 (07:48→21:06)
[2020-09-03] MEDS: CHOLECALCIFEROL 1,000 UNITS 25 MCG TAB PO SCH (07:48)
[2020-09-03] MEDS: ATORVASTATIN 10 MG TAB PO SCH (07:49)
[2020-09-03] MEDS: ADVANCED PROBIOTIC 1250 MG CAPSULE PO SCH (07:49)
[2020-09-03] MEDS: NYSTATIN SUSP 500,000 U/5 ML UDC PO SCH ×3 (07:49→21:07)
[2020-09-03] MEDS: PANTOprazole 40 MG TAB PO SCH (07:49)
[2020-09-03 07:50] LABS: Base Excess ABG 5.9 mEq/L (-9-1.8); HCO3 ABG 30 mmol/L (19-24); Oxygen Saturation ABG 90.4 % (90-95); PCO2 ABG 39 mmHg (35-46); PO2 ABG 59 mmHg (80-95)
[2020-09-03] MEDS: ENOXAPARIN INJ 40 MG/0.4 ML SYR SQ SCH (07:50)
[2020-09-03 07:51] LABS: Allen Test Pos (Pos)
[2020-09-03 07:58] LABS: Hematocrit (blood only) 33.4 % (37-47); Hemoglobin 10.6 g/dL (12.0-16.0); Mean Corpuscular Hemoglobin 31.3 pg (25-34); Mean Corpuscular Hgb Conc 31.7 g/dL (32-36); Mean Corpuscular Volume 98.5 fL (80-100); Mean Platelet Volume 10.6 fL (7.4-10.4); Platelet Count 302 K/uL (130-400); RDW Coefficient of Variation 18.1 % (11.5-14.5); RDW Standard Deviation 65.3 fL (36.4-46.3); Red Blood Count 3.39 M/uL (4.2-5.4); White Blood Count 18.83 K/uL (4.8-10.8)
[2020-09-03] MEDS: MoRPHine SULFATE 2 MG/ML CARP IV PRN ×6 (08:10→23:15)
[2020-09-03] MEDS: INSULIN ASPART 100 UNITS/ML 3 ML PEN SC SCH ×4 (08:11→21:06)
[2020-09-03 08:36] LABS: BUN Creatinine Ratio 37.6 (10-20); Calcium 10.1 mg/dl (8.5-10.1); Creatinine Clr Calc Pharmacy 92.1 ml/min; Est GFR (African American) 111.6; Est GFR (Non-African American) 96.3; Magnesium 2.1 mg/dl (1.8-2.4); Phosphorus 3.6 mg/dl (2.5-4.9); Potassium 4.1 mmol/L (3.5-5.1)
[2020-09-03] MEDS ORDERED: MoRPHine SULFATE 2 MG/ML CARP IV STA (08:42)
[2020-09-03] MEDS ORDERED: MoRPHine SULFATE 4 MG/ML 1 ML CARP\\VIAL IV PRN (09:23)
--- NOTE | 2020-09-03 09:35 | Palliative Care Progress Note ---
Date of Service September 03, 2020 Assessment & Plan (1) Dyspnea and respiratory abnormality: In setting of respiratory failure with pneumonitis and NSCLC. Improved with morphine as needed. Will continue as needed dosing with range of 2-4 mg for moderate to severe dyspnea. Family is very concerned about her being able to be comfortable. Reassured them that we will continue to monitor and can adjust her treatments as needed. (2) Palliative care encounter: After further discussion yesterday, Puja and her family have decided against intubation but do want to continue current level of care at this time. She understands that her prognosis is poor and she is approaching her dying time. Her wish is to be able to visit with family and be comfortable. Discussed with hospitalist and pulmonary. (3) Acute respiratory failure with hypoxia: (4) Squamous cell carcinoma of lung, stage III: Admission and Anticipated Discharge Date Admission Date: August 28, 2020 Subjective Very hypoxic this morning with labored breathing and air hunger. She denies feeling anxious or worried. Her daughter, Dayanna, has just arrived from [place]. She is more comfortable after dose of IV morphine but continues to use accessory muscles. Review of Systems Review of Systems: [place] Symptom Assessment Scale Pain0/3 Dyspnea 3/3, now 1/3 after morphine Nausea 0/3 Drowsiness 0/3 Anxiety 0/3 Palliative Performance Score 30% Physical Exam Constitutional: + ill appearing ENMT: Mouth: + dry oral mucous membranes Respiratory: + labored breathing and + uses accessory muscles Gastrointestinal (Abdomen): Inspection/Auscultation: abdomen not distended Percussion/Palpation: abdomen nontender Musculoskeletal: Extremities: extremities normal to inspection Neurologic: awake; no focal motor deficits and not confused Psychiatric: Orientation: alert and oriented x 3 Results & Data ([facility]) Vital Signs (Past 12 Hours) Vital Signs Temp Pulse Resp BP Pulse Ox 09/03/20 08:14 98.4 F 112 H 48 H 67 L 09/03/20 07:11 92 H 24 86 L 09/03/20 07:10 92 H 24 86 L 09/03/20 03:20 91 H 28 H 86 L 09/03/20 03:13 98.1 F 99 H 24 114/76 89 L 09/02/20 23:31 98 H 25 H 89 L 09/02/20 22:59 98.8 F 106 H 32 H 115/78 89 L PG Care Time/CCT Total # of Minutes Spent Total Time Spent with Patient: Total time spent is greater than 50% in coordination of care (as documented) at patient's floor/unit and/or counseling patient: Coding Level of Care Code 12834 Subseq Hosp Care Lvl 3 Diagnoses Dyspnea and respiratory abnormality R06.00; R06.89 Palliative care encounter Z51.5 Acute respiratory failure with hypoxia J96.01 Squamous cell carcinoma of lung, stage III C34.91 Laterality: right (1) Squamous cell carcinoma of lung, stage III Laterality: right Qualified Code(s): C34.91 - Malignant neoplasm of unspecified part of right bronchus or lung
--- NOTE | 2020-09-03 09:49 | XRay Report ---
SINGLE VIEW CHEST CLINICAL HISTORY: Dyspnea. FINDINGS: An AP, portable, upright chest radiograph is compared to studies dated 09/02/2020. The exami nation is degraded by portable technique and patient rotation. A left subclavian central venous infus ion port is unchanged in position. The heart is enlarged noting atherosclerotic calcification of the thoracic aorta. Advanced emphysema and chronic interstitial thickening is similar to previous. There is chronic elevation of left hemidiaphragm. A mass lesion is again noted at the right apex. Airspace consolidation is again seen throughout both lungs, right greater than left. Suspect trace pleural ef fusions. No pneumothorax is seen. The skeletal structures are osteopenic. The bony thorax appears int act. Cholecystectomy clips are seen in the right upper quadrant. IMPRESSION: 1. Multifocal airspace consolidation is again seen throughout both lungs, asymmetrically greater on t he right. This is unchanged from yesterday. 2. Suspect small pleural effusions. 3. Cardiomegaly, emphysema, and a right apical pulmonary mass are again noted. ACT 112: Negative or not required by law. Electronically signed by: Dany Allen M.D. 09/03/2020 9:48 AM
--- NOTE | 2020-09-03 10:07 | Hospitalist Progress Note ---
Date of Service September 03, 2020 Assessment & Plan (1) Acute respiratory failure with hypoxia: Pneumonia Present on admission with worsening SOB CTA showed persistent 48 mm right apical pulmonary mass. Persistent mediastinal and hilar lymphadenopathy. Progressive bilateral groundglass pulmonary opacities right greater than left. Received Zosyn and Vanco in the ER Continued steroid and neb treatment Continued IV cefepime and Doxycline and Bactrum DS added -due to development of rash, cefepime and Bactrim were put on hold Sputum cx and blood cx no growth Pulmonary medicine consulted ESR and CRP are elevated, suggestive of an inflammatory process. ANCA, glomerular basement membrane, as well as Fungitell and Legionella urinary antigen are currently pending. Continue Solu-Medrol to 125 mg for potential alveolar hemorrhage or chemotherapeutic pulmonary toxicity. Initially plan was for potential bronchoscopy with BAL. However due to patient's hypoxia, patient is high risk for bronchoscopy. Continue supplemental oxygen titrated to keep saturations at or above 88%. CPAP at night. Please avoid BIPAP since it is not indicated with normal PCO2 Bronchoscopy cancelled due to extreme hypoxic on high flow oxygen supplement Bactrium discontinued for possible rash, but not sure if the rash was due to cefepime, therefore cefepime was also put on hold IV solumedrol was changed to 40mg TID Will discuss case with pulm about next step since pt continue to be on high flow oxygen Started patient on aztreonam for gram-negative coverage (09/02/20) Discussed with pulmonology, palliative medicine consult 09/03 Overnight patient requiring more oxygen, this morning tachypneic, using accessory muscles to breathe Patient received IV morphine Chest x-ray, ABG reviewed this morning Pulmonology and palliative medicine both contacted Family also contacted and visited the patient Continue current treatment, will try chest PT/vest, morphine 2-4 mg for moderate to severe dyspnea Family wishes for the patient to be comfortable, however not ready to withdraw treatment either Squamous cell carcinoma of lung, stage IIIc: Completed chemotherapy in June Plan to start immunotherapy sometime in the near future Continue outpatient follow up with oncology - Dr. Castro Patient was seen at the oncology office in June, she was supposed to be seen on August 31, however missed the appointment as she was in the hospital. Sent message to oncology office to notify them that patient is currently hospitalized. Anemia Mostly due to chemotherapy Hgb 9.9 today Continue monitor CBC COPD (chronic obstructive pulmonary disease): Pt was discharged on 2L NC in the last admission Continue high oxygen supplement Continue IV steroid Continue Neb treatment Please keep oxygen saturation above 88% DM type 2 Most recent hba1c 6.6 on 08/22/20 Continue insulin sliding scale while on steroid Continue monitor BS DVT px on Lovenox Code Status : DNR/ DNI - discussed with the pt, her family, palliative medicine, and pulmonology Admission and Anticipated Discharge Date Admission Date: August 28, 2020 Subjective Patient seen for respiratory failure, pneumonia Overnight patient had increased oxygen requirement She has been on high flow nasal cannula, now switched to CPAP by respiratory She is using accessory muscles to breathe, and is very tachypneic, feeling short of breath Received IV morphine this morning, with some improvement Pulmonology and palliative medicine both contacted Family contacted as well, able to visit Chest x-ray this a.m., ABG ordered Review of Systems Review of Systems: All systems reviewed & are unremarkable except as noted in HPI & below As per HPI, all 10 systems reviewed, all other ROS negative Respiratory: + dyspnea Cardiovascular: no chest pain Gastrointestinal: + abdominal pain Physical Exam Physical Exam: General-elderly female, sitting up in bed, was on high flow nasal cannula/ now on CPAP, using accessory resp. muscles, tachypneic Head- atraumatic Eyes- PERRL, EOMI, ENT- oropharynx clear Neck- supple, no JVD Lungs- +Decreased BS, + diffuse rhonchi, port in left chest wall, patient is using accessory resp. muscles, tachypneic Heart- regular rhythm; +systolic murmur Abdomen- normal bowel sounds, soft, nontender Extremities- no calf tenderness Neuro- alert, oriented x 3; PERRL, EOMI; no facial palsy; no dysarthria Skin- warm & dry Results & Data Results & Data ([facility]) Vital Signs (Past 12 Hours) Vital Signs Temp Pulse Resp BP Pulse Ox 09/03/20 08:14 36.9 C 112 H 48 H 67 L 09/03/20 07:11 92 H 24 86 L 09/03/20 07:10 92 H 24 86 L 09/03/20 03:20 91 H 28 H 86 L 09/03/20 03:13 36.7 C 99 H 24 114/76 89 L 09/02/20 23:31 98 H 25 H 89 L 09/02/20 22:59 37.1 C 106 H 32 H 115/78 89 L Laboratory Results 09/03/20 09/03/20 09/03/20 Range/Units 07:56 07:44 07:44 WBC 18.83 H (4.8-10.8) K/uL RBC 3.39 L (4.2-5.4) M/uL Hgb 10.6 L (12.0-16.0) g/dL Hct 33.4 L (37-47) % MCV 98.5 (80-100) fL MCH 31.3 (25-34) pg MCHC 31.7 L (32-36) g/dL RDW Std Deviation 65.3 H (36.4-46.3) fL RDW Coeff of Teresa 18.1 H (11.5-14.5) % Plt Count 302 (130-400) K/uL MPV 10.6 H (7.4-10.4) fL ABG pH (7.35-7.45) ABG pCO2 (35-46) mmHg ABG pO2 (80-95) mmHg ABG HCO3 (19-24) mmol/L ABG O2 Saturation (90-95) % ABG Base Excess (-9-1.8) mEq/L [place] Test (Pos) Barometric Pressure mm/Hg Oxygen Given Sodium 137 (136-145) mmol/L Potassium 4.1 (3.5-5.1) mmol/L Chloride 101 (98-107) mmol/L Carbon Dioxide 31 (21-32) mmol/L Anion Gap 5.0 (3-11) BUN 23 H (7-18) mg/dl Creatinine 0.60 (0.6-1.2) mg/dl Est Cr Clr Drug Dosing 92.1 ml/min Est GFR ( Amer) 111.6 Est GFR (Non-Af Amer) 96.3 BUN/Creatinine Ratio 37.6 H (10-20) Glucose 125 H (70-99) mg/dl POC Glucose 123 H (70-99) mg/dl Calcium 10.1 (8.5-10.1) mg/dl Phosphorus 3.6 (2.5-4.9) mg/dl Magnesium 2.1 (1.8-2.4) mg/dl Procalcitonin (0-0.5) ng/ml Urine Legionella Ag 09/03/20 09/02/20 09/02/20 Range/Units 07:39 20:48 16:38 WBC (4.8-10.8) K/uL RBC (4.2-5.4) M/uL Hgb (12.0-16.0) g/dL Hct (37-47) % MCV (80-100) fL MCH (25-34) pg MCHC (32-36) g/dL RDW Std Deviation (36.4-46.3) fL RDW Coeff of Teresa (11.5-14.5) % Plt Count (130-400) K/uL MPV (7.4-10.4) fL ABG pH 7.50 H (7.35-7.45) ABG pCO2 39 (35-46) mmHg ABG pO2 59 L (80-95) mmHg ABG HCO3 30 H (19-24) mmol/L ABG O2 Saturation 90.4 (90-95) % ABG Base Excess 5.9 H (-9-1.8) mEq/L [place] Test Pos (Pos) Barometric Pressure 729.2 mm/Hg Oxygen Given HI GINA 40 LPM Sodium (136-145) mmol/L Potassium (3.5-5.1) mmol/L Chloride (98-107) mmol/L Carbon Dioxide (21-32) mmol/L Anion Gap (3-11) BUN (7-18) mg/dl Creatinine (0.6-1.2) mg/dl Est Cr Clr Drug Dosing ml/min Est GFR ( Amer) Est GFR (Non-Af Amer) BUN/Creatinine Ratio (10-20) Glucose (70-99) mg/dl POC Glucose 222 H 179 H (70-99) mg/dl Calcium (8.5-10.1) mg/dl Phosphorus (2.5-4.9) mg/dl Magnesium (1.8-2.4) mg/dl Procalcitonin (0-0.5) ng/ml Urine Legionella Ag 09/02/20 09/02/20 08/31/20 Range/Units 11:11 07:27 16:09 WBC (4.8-10.8) K/uL RBC (4.2-5.4) M/uL Hgb (12.0-16.0) g/dL Hct (37-47) % MCV (80-100) fL MCH (25-34) pg MCHC (32-36) g/dL RDW Std Deviation (36.4-46.3) fL RDW Coeff of Teresa (11.5-14.5) % Plt Count (130-400) K/uL MPV (7.4-10.4) fL ABG pH (7.35-7.45) ABG pCO2 (35-46) mmHg ABG pO2 (80-95) mmHg ABG HCO3 (19-24) mmol/L ABG O2 Saturation (90-95) % ABG Base Excess (-9-1.8) mEq/L [place] Test (Pos) Barometric Pressure mm/Hg Oxygen Given Sodium (136-145) mmol/L Potassium (3.5-5.1) mmol/L Chloride (98-107) mmol/L Carbon Dioxide (21-32) mmol/L Anion Gap (3-11) BUN (7-18) mg/dl Creatinine (0.6-1.2) mg/dl Est Cr Clr Drug Dosing ml/min Est GFR ( Amer) Est GFR (Non-Af Amer) BUN/Creatinine Ratio (10-20) Glucose (70-99) mg/dl POC Glucose 145 H (70-99) mg/dl Calcium (8.5-10.1) mg/dl Phosphorus (2.5-4.9) mg/dl Magnesium (1.8-2.4) mg/dl Procalcitonin 0.31 (0-0.5) ng/ml Urine Legionella Ag SEE NOTE Medications Administered Current Inpatient Medications Acetaminophen (Acetaminophen 325 Mg Tab) 650 mg PO Q4H PRN PRN Reason: Pain or Fever Stop: 09/27/20 02:06 Last Admin: 08/31/20 14:08 Dose: 650 mg Documented by: Atorvastatin Calcium (Atorvastatin 10 Mg Tab) 10 mg PO DAILY [facility] Stop: 09/27/20 08:59 Last Admin: 09/03/20 07:49 Dose: 10 mg Documented by: Dextrose (Dextrose 50% 50 Ml Syringe) 25 - 50 ml IV UD PRN; Protocol PRN Reason: Hypoglycemia Protocol Stop: 09/27/20 02:06 Diphenhydramine HCl (Diphenhydramine Capsule 25 Mg Cap) 25 mg PO Q8H PRN PRN Reason: Rash Stop: 10/01/20 09:17 Last Admin: 09/02/20 04:35 Dose: 25 mg Documented by: Doxycycline Hyclate (Doxycycline Hyclate 100 Mg Cap) 100 mg PO BID [facility] Stop: 09/04/20 08:59 Last Admin: 09/03/20 07:48 Dose: 100 mg Documented by: Enoxaparin Sodium (Enoxaparin Inj 40 Mg/0.4 Ml Syr) 40 mg SQ QAM [facility] Stop: 09/27/20 08:59 Last Admin: 09/03/20 07:50 Dose: 40 mg Documented by: Ferrous Sulfate (Ferrous Sulfate 325 Mg Tab) 325 mg PO BID@1200,1800 [facility] Stop: 09/27/20 11:59 Last Admin: 09/02/20 17:50 Dose: 325 mg Documented by: Glucagon (Glucagon For Inj 1 Mg Vial) 1 mg SQ UD PRN; Protocol PRN Reason: Hypoglycemia Protocol Stop: 09/27/20 02:06 Glucose (Glucose 10 Tabs/Tube) 4 - 8 tabs PO UD PRN; Protocol PRN Reason: Hypoglycemia Protocol Stop: 09/27/20 02:06 Glucose (Glucose 40% Gel 15 Gm Tube) 15 - 30 gm PO UD PRN; Protocol PRN Reason: Hypoglycemia Protocol Stop: 09/27/20 02:06 Heparin Sodium (Porcine) (Heparin 100 Unit/Ml 5ml Flush) 5 ml FLUSH PRN PRN PRN Reason: Flush Stop: 10/01/20 01:07 Last Admin: 09/01/20 14:19 Dose: 5 ml Documented by: Promethazine HCl 12.5 mg/ (Sodium Chloride) 50.5 mls @ 202 mls/hr IV Q6H PRN PRN Reason: Nausea And Vomiting Stop: 09/27/20 02:06 Cefepime HCl 2,000 mg/ Syringe 20 mls @ 5 mls/min IV Q8H [facility]; Protocol Stop: 09/04/20 09:59 Last Admin: 09/01/20 04:06 Dose: Not Given Documented by: Lorazepam (Ativan) 0.25 mg in 0.5 mls @ 0.5 mls/min IV Q6H PRN PRN Reason: Anxiety Stop: 09/30/20 03:10 Methylprednisolone 40 mg/ (Syringe) 0.64 mls @ 1.5 mls/min IV TID [facility] Stop: 10/01/20 05:29 Last Admin: 09/03/20 07:48 Dose: 1.5 mls/min Documented by: Aztreonam 1,000 mg/ Dextrose 110 mls @ 100 mls/hr IV Q8H [facility]; Protocol Stop: 09/09/20 09:59 Last Admin: 09/03/20 08:58 Dose: 100 mls/hr Documented by: Insulin Aspart (Insulin Aspart 100 Units/Ml 3 Ml Pen) 0 units SC ACHS [facility] Stop: 09/27/20 02:06 Last Admin: 09/03/20 08:11 Dose: Not Given Documented by: Insulin Glargine (Insulin Glargine Solostar 100 Units/Ml 3 Ml Pen) 10 units SC HS [facility] Stop: 09/27/20 20:29 Last Admin: 09/02/20 21:45 Dose: 10 units Documented by: Ipratropium [place] (Ipratropium [place] Neb Soln 0.02% 2.5 Ml Vial) 0.5 mg INH Q4R [facility] Stop: 09/28/20 22:59 Last Admin: 09/03/20 07:10 Dose: 0.5 mg Documented by: Lactobacillus Acidoph/Casei/Rhamnos (Advanced Probiotic 1250 Mg Capsule) 2 cap PO DAILY [facility] Stop: 09/27/20 08:59 Last Admin: 09/03/20 07:49 Dose: 2 cap Documented by: Levalbuterol HCl (Levalbuterol 1.25mg/0.5ml Neb) 1.25 mg INH Q4R [facility] Stop: 09/28/20 22:59 Last Admin: 09/03/20 07:10 Dose: 1.25 mg Documented by: Miscellaneous (Carbohydrates For Hypoglycemia ) 15 - 30 gm PO UD PRN PRN Reason: Hypoglycemia Protocol Stop: 09/27/20 02:06 Miscellaneous Information (Cefepime Consult Active) 1 ea N/A UD PRN PRN Reason: Consult Stop: 09/27/20 08:59 Morphine Sulfate (Morphine Sulfate 2 Mg/Ml Carp) 2 mg IV Q1H PRN PRN Reason: Pain or moderate dyspnea Stop: 09/14/20 03:05 Morphine Sulfate (Morphine Sulfate 4 Mg/Ml 1 Ml Carp\Vial) 4 mg IV Q2H PRN PRN Reason: Severe pain or dyspnea Stop: 09/17/20 09:22 Nystatin (Nystatin Susp 500,000 U/5 Ml Udc) 10 ml PO TID [facility] Stop: 09/10/20 13:59 Last Admin: 09/03/20 07:49 Dose: 10 ml Documented by: Pantoprazole Sodium (Pantoprazole 40 Mg Tab) 40 mg PO DAILY [facility] Stop: 09/27/20 08:59 Last Admin: 09/03/20 07:49 Dose: 40 mg Documented by: Tramadol HCl (Tramadol Hcl 50 Mg Tablet) 25 - 50 mg PO Q4H PRN PRN Reason: Pain Stop: 09/27/20 02:06 Vitamin D (Cholecalciferol 1,000 Units 25 Mcg Tab) 5,000 units PO QAM [facility] Stop: 09/28/20 09:44 Last Admin: 09/03/20 07:48 Dose: 5,000 units Documented by:
[2020-09-03] MEDS: FERROUS SULFATE 325 MG TAB PO SCH ×2 (12:12→17:11)
[2020-09-03] MEDS: INSULIN GLARGINE SOLOSTAR 100 UNITS/ML 3 ML PEN SC SCH (21:05)
[2020-09-04] MEDS: MoRPHine SULFATE 2 MG/ML CARP IV PRN ×10 (00:59→23:33)
[2020-09-04] MEDS: AZTREONAM 1,000 MG in DEXTROSE 5% 100 ML IV SCH ×2 (02:50→10:17)
[2020-09-04] MEDS: LEVALBUTEROL 1.25MG/0.5ML NEB INH SCH ×6 (03:55→23:16)
[2020-09-04] MEDS: IPRATROPIUM BROMIDE NEB SOLN 0.02% 2.5 ML VIAL INH SCH ×6 (03:55→23:16)
--- NOTE | 2020-09-04 07:52 | Hospitalist Progress Note ---
Date of Service September 04, 2020 Assessment & Plan (1) Acute respiratory failure with hypoxia: Pneumonia Present on admission with worsening SOB CTA showed persistent 48 mm right apical pulmonary mass. Persistent mediastinal and hilar lymphadenopathy. Progressive bilateral groundglass pulmonary opacities right greater than left. Received Zosyn and Vanco in the ER Continued steroid and neb treatment Continued IV cefepime and Doxycline and Bactrum DS added -due to development of rash, cefepime and Bactrim were put on hold Sputum cx and blood cx no growth Pulmonary medicine consulted ESR and CRP are elevated, suggestive of an inflammatory process. ANCA, glomerular basement membrane, as well as Fungitell and Legionella urinary antigen are currently pending. Continue Solu-Medrol to 125 mg for potential alveolar hemorrhage or chemotherapeutic pulmonary toxicity. Initially plan was for potential bronchoscopy with BAL. However due to patient's hypoxia, patient is high risk for bronchoscopy. Continue supplemental oxygen titrated to keep saturations at or above 88%. CPAP at night. Please avoid BIPAP since it is not indicated with normal PCO2 Bronchoscopy cancelled due to extreme hypoxic on high flow oxygen supplement Bactrium discontinued for possible rash, but not sure if the rash was due to cefepime, therefore cefepime was also put on hold IV solumedrol was changed to 40mg TID Will discuss case with pulm about next step since pt continue to be on high flow oxygen Started patient on aztreonam for gram-negative coverage (09/02/20) Discussed with pulmonology, palliative medicine consult 09/03 Overnight patient requiring more oxygen, this morning tachypneic, using accessory muscles to breathe Patient received IV morphine Chest x-ray, ABG reviewed this morning Pulmonology and palliative medicine both contacted Family also contacted and visited the patient Continue current treatment, will try chest PT/vest, morphine 2-4 mg for moderate to severe dyspnea Family wishes for the patient to be comfortable, however not ready to withdraw treatment either 09/04 Patient again with episodes of respiratory distress, tachycardia, tachypnea Discussed again with family, and palliative medicine Appreciate palliative medicine input Squamous cell carcinoma of lung, stage IIIc: Completed chemotherapy in June Plan to start immunotherapy sometime in the near future Continue outpatient follow up with oncology - Dr. Castro Patient was seen at the oncology office in June, she was supposed to be seen on August 31, however missed the appointment as she was in the hospital. Sent message to oncology office to notify them that patient is currently hospitalized. Anemia Mostly due to chemotherapy Hgb 10.6 today Continue monitor CBC COPD (chronic obstructive pulmonary disease): Pt was discharged on 2L NC in the last admission Continue high oxygen supplement Continue IV steroid Continue Neb treatment Please keep oxygen saturation above 88% DM type 2 Most recent hba1c 6.6 on 08/22/20 Continue insulin sliding scale while on steroid Continue monitor BS DVT px on Lovenox Code Status : DNR/ DNI - discussed with the pt, her family, palliative medicine, and pulmonology Admission and Anticipated Discharge Date Admission Date: August 28, 2020 Subjective Patient seen for respiratory failure, pneumonia Today patient again in respiratory distress, tachycardic, tachypneic, using accessory muscles to breathe Received morphine and Ativan, with some relief of symptoms Palliative medicine also contacted and facilitating management Family updated at bedside Review of Systems Review of Systems: All systems reviewed & are unremarkable except as noted in HPI & below Respiratory: + dyspnea Cardiovascular: no chest pain Gastrointestinal: no abdominal pain and no vomiting Physical Exam Physical Exam: General-elderly female, sitting up in bed, on high flow nasal cannula, using accessory resp. muscles, tachypneic Head- atraumatic Eyes- PERRL, EOMI, ENT- oropharynx clear Neck- supple, no JVD Lungs- +Decreased BS, + diffuse rhonchi, port in left chest wall, patient is using accessory resp. muscles, tachypneic Heart- + tachycardic; +systolic murmur Abdomen- normal bowel sounds, soft, nontender Extremities- no calf tenderness Neuro- alert, oriented x 3; PERRL, EOMI; no facial palsy; no dysarthria Skin- warm & dry Results & Data Results & Data ([facility]) Vital Signs (Past 12 Hours) Vital Signs Temp Pulse Pulse Pulse Resp BP Pulse Ox 09/04/20 07:24 120 H 26 H 85 L 09/04/20 07:18 120 H 26 H 85 L 09/04/20 03:58 105 H 22 89 L 09/04/20 03:55 105 H 22 89 L 09/04/20 03:40 36.2 C L 98 H 22 136/82 89 L 09/04/20 00:30 95 H 20 89 L 09/03/20 23:25 106 H 28 H 80 L 09/03/20 23:15 36.4 C L 124 H 32 H 145/83 H 68 L 09/03/20 23:06 99 H 20 88 L 09/03/20 23:00 91 H Laboratory Results 09/04/20 09/04/20 09/04/20 Range/Units 08:30 08:30 07:35 WBC 20.53 H (4.8-10.8) K/uL RBC 3.42 L (4.2-5.4) M/uL Hgb 10.6 L (12.0-16.0) g/dL Hct 33.4 L (37-47) % MCV 97.7 (80-100) fL MCH 31.0 (25-34) pg MCHC 31.7 L (32-36) g/dL RDW Std Deviation 63.5 H (36.4-46.3) fL RDW Coeff of Teresa 17.7 H (11.5-14.5) % Plt Count 297 (130-400) K/uL MPV 10.7 H (7.4-10.4) fL Sodium 135 L (136-145) mmol/L Potassium 3.9 (3.5-5.1) mmol/L Chloride 99 (98-107) mmol/L Carbon Dioxide 32 (21-32) mmol/L Anion Gap 5.0 (3-11) BUN 24 H (7-18) mg/dl Creatinine 0.48 L (0.6-1.2) mg/dl Est Cr Clr Drug Dosing 115.1 ml/min Est GFR ( Amer) 120.1 Est GFR (Non-Af Amer) 103.7 BUN/Creatinine Ratio 49.4 H (10-20) Glucose 109 H (70-99) mg/dl POC Glucose 126 H (70-99) mg/dl Calcium 9.6 (8.5-10.1) mg/dl Phosphorus 3.1 (2.5-4.9) mg/dl Magnesium 2.0 (1.8-2.4) mg/dl 09/03/20 09/03/20 Range/Units 20:35 16:40 WBC (4.8-10.8) K/uL RBC (4.2-5.4) M/uL Hgb (12.0-16.0) g/dL Hct (37-47) % MCV (80-100) fL MCH (25-34) pg MCHC (32-36) g/dL RDW Std Deviation (36.4-46.3) fL RDW Coeff of Teresa (11.5-14.5) % Plt Count (130-400) K/uL MPV (7.4-10.4) fL Sodium (136-145) mmol/L Potassium (3.5-5.1) mmol/L Chloride (98-107) mmol/L Carbon Dioxide (21-32) mmol/L Anion Gap (3-11) BUN (7-18) mg/dl Creatinine (0.6-1.2) mg/dl Est Cr Clr Drug Dosing ml/min Est GFR ( Amer) Est GFR (Non-Af Amer) BUN/Creatinine Ratio (10-20) Glucose (70-99) mg/dl POC Glucose 212 H 172 H (70-99) mg/dl Calcium (8.5-10.1) mg/dl Phosphorus (2.5-4.9) mg/dl Magnesium (1.8-2.4) mg/dl Medications Administered Current Inpatient Medications Acetaminophen (Acetaminophen 325 Mg Tab) 650 mg PO Q4H PRN PRN Reason: Pain or Fever Stop: 09/27/20 02:06 Last Admin: 08/31/20 14:08 Dose: 650 mg Documented by: Atorvastatin Calcium (Atorvastatin 10 Mg Tab) 10 mg PO DAILY [facility] Stop: 09/27/20 08:59 Last Admin: 09/03/20 07:49 Dose: 10 mg Documented by: Dextrose (Dextrose 50% 50 Ml Syringe) 25 - 50 ml IV UD PRN; Protocol PRN Reason: Hypoglycemia Protocol Stop: 09/27/20 02:06 Diphenhydramine HCl (Diphenhydramine Capsule 25 Mg Cap) 25 mg PO Q8H PRN PRN Reason: Rash Stop: 10/01/20 09:17 Last Admin: 09/02/20 04:35 Dose: 25 mg Documented by: Doxycycline Hyclate (Doxycycline Hyclate 100 Mg Cap) 100 mg PO BID [facility] Stop: 09/04/20 08:59 Last Admin: 09/03/20 21:07 Dose: 100 mg Documented by: Enoxaparin Sodium (Enoxaparin Inj 40 Mg/0.4 Ml Syr) 40 mg SQ QAM [facility] Stop: 09/27/20 08:59 Last Admin: 09/03/20 07:50 Dose: 40 mg Documented by: Ferrous Sulfate (Ferrous Sulfate 325 Mg Tab) 325 mg PO BID@1200,1800 [facility] Stop: 09/27/20 11:59 Last Admin: 09/03/20 17:11 Dose: 325 mg Documented by: Glucagon (Glucagon For Inj 1 Mg Vial) 1 mg SQ UD PRN; Protocol PRN Reason: Hypoglycemia Protocol Stop: 09/27/20 02:06 Glucose (Glucose 10 Tabs/Tube) 4 - 8 tabs PO UD PRN; Protocol PRN Reason: Hypoglycemia Protocol Stop: 09/27/20 02:06 Glucose (Glucose 40% Gel 15 Gm Tube) 15 - 30 gm PO UD PRN; Protocol PRN Reason: Hypoglycemia Protocol Stop: 09/27/20 02:06 Guaifenesin (Guaifenesin 600 Mg Tabcr) 1,200 mg PO Q12 [facility] Stop: 10/04/20 08:59 Heparin Sodium (Porcine) (Heparin 100 Unit/Ml 5ml Flush) 5 ml FLUSH PRN PRN PRN Reason: Flush Stop: 10/01/20 01:07 Last Admin: 09/01/20 14:19 Dose: 5 ml Documented by: Promethazine HCl 12.5 mg/ (Sodium Chloride) 50.5 mls @ 202 mls/hr IV Q6H PRN PRN Reason: Nausea And Vomiting Stop: 09/27/20 02:06 Cefepime HCl 2,000 mg/ Syringe 20 mls @ 5 mls/min IV Q8H [facility]; Protocol Stop: 09/04/20 09:59 Last Admin: 09/01/20 04:06 Dose: Not Given Documented by: Lorazepam (Ativan) 0.25 mg in 0.5 mls @ 0.5 mls/min IV Q6H PRN PRN Reason: Anxiety Stop: 09/30/20 03:10 Methylprednisolone 40 mg/ (Syringe) 0.64 mls @ 1.5 mls/min IV TID [facility] Stop: 10/01/20 05:29 Last Admin: 09/03/20 21:06 Dose: 1.5 mls/min Documented by: Aztreonam 1,000 mg/ Dextrose 110 mls @ 100 mls/hr IV Q8H [facility]; Protocol Stop: 09/09/20 09:59 Last Infusion: 09/04/20 03:56 Dose: Infused Documented by: Insulin Aspart (Insulin Aspart 100 Units/Ml 3 Ml Pen) 0 units SC ACHS [facility] Stop: 09/27/20 02:06 Last Admin: 09/03/20 21:06 Dose: 2 units Documented by: Insulin Glargine (Insulin Glargine Solostar 100 Units/Ml 3 Ml Pen) 10 units SC HS [facility] Stop: 09/27/20 20:29 Last Admin: 09/03/20 21:05 Dose: 10 units Documented by: Ipratropium [place] (Ipratropium [place] Neb Soln 0.02% 2.5 Ml Vial) 0.5 mg INH Q4R [facility] Stop: 09/28/20 22:59 Last Admin: 09/04/20 07:18 Dose: 0.5 mg Documented by: Lactobacillus Acidoph/Casei/Rhamnos (Advanced Probiotic 1250 Mg Capsule) 2 cap PO DAILY [facility] Stop: 09/27/20 08:59 Last Admin: 09/03/20 07:49 Dose: 2 cap Documented by: Levalbuterol HCl (Levalbuterol 1.25mg/0.5ml Neb) 1.25 mg INH Q4R [facility] Stop: 09/28/20 22:59 Last Admin: 09/04/20 07:18 Dose: 1.25 mg Documented by: Miscellaneous (Carbohydrates For Hypoglycemia ) 15 - 30 gm PO UD PRN PRN Reason: Hypoglycemia Protocol Stop: 09/27/20 02:06 Miscellaneous Information (Cefepime Consult Active) 1 ea N/A UD PRN PRN Reason: Consult Stop: 09/27/20 08:59 Morphine Sulfate (Morphine Sulfate 2 Mg/Ml Carp) 2 mg IV Q1H PRN PRN Reason: Pain or moderate dyspnea Stop: 09/14/20 03:05 Last Admin: 09/04/20 06:59 Dose: 2 mg Documented by: Morphine Sulfate (Morphine Sulfate 4 Mg/Ml 1 Ml Carp\Vial) 4 mg IV Q2H PRN PRN Reason: Severe pain or dyspnea Stop: 09/17/20 09:22 Nystatin (Nystatin Susp 500,000 U/5 Ml Udc) 10 ml PO TID [facility] Stop: 09/10/20 13:59 Last Admin: 09/03/20 21:07 Dose: 10 ml Documented by: Pantoprazole Sodium (Pantoprazole 40 Mg Tab) 40 mg PO DAILY [facility] Stop: 09/27/20 08:59 Last Admin: 09/03/20 07:49 Dose: 40 mg Documented by: Tramadol HCl (Tramadol Hcl 50 Mg Tablet) 25 - 50 mg PO Q4H PRN PRN Reason: Pain Stop: 09/27/20 02:06 Vitamin D (Cholecalciferol 1,000 Units 25 Mcg Tab) [facility] [place] 09/28/20 09:44 Last Admin: 09/03/20 07:48 Dose: 5,000 units Documented by:
[2020-09-04] MEDS: INSULIN ASPART 100 UNITS/ML 3 ML PEN SC SCH ×2 (08:46→12:46)
[2020-09-04] MEDS: methylPREDNISolone 40 MG in SYRINGE 0 ML IV SCH ×3 (08:49→20:02)
[2020-09-04] MEDS: ADVANCED PROBIOTIC 1250 MG CAPSULE PO SCH (08:49)
[2020-09-04] MEDS: NYSTATIN SUSP 500,000 U/5 ML UDC PO SCH ×2 (08:50→13:45)
[2020-09-04] MEDS: ATORVASTATIN 10 MG TAB PO SCH (08:51)
[2020-09-04] MEDS: guaiFENesin 600 MG TABCR PO SCH ×2 (08:51→08:54)
[2020-09-04] MEDS: CHOLECALCIFEROL 1,000 UNITS 25 MCG TAB PO SCH (08:52)
[2020-09-04] MEDS: PANTOprazole 40 MG TAB PO SCH (08:52)
[2020-09-04] MEDS: ENOXAPARIN INJ 40 MG/0.4 ML SYR SQ SCH (08:53)
[2020-09-04 08:59] LABS: Hematocrit (blood only) 33.4 % (37-47); Hemoglobin 10.6 g/dL (12.0-16.0); Mean Corpuscular Hgb Conc 31.7 g/dL (32-36); Mean Corpuscular Volume 97.7 fL (80-100); Mean Platelet Volume 10.7 fL (7.4-10.4); Platelet Count 297 K/uL (130-400); RDW Coefficient of Variation 17.7 % (11.5-14.5); RDW Standard Deviation 63.5 fL (36.4-46.3); Red Blood Count 3.42 M/uL (4.2-5.4); White Blood Count 20.53 K/uL (4.8-10.8)
[2020-09-04 09:26] LABS: BUN Creatinine Ratio 49.4 (10-20); Calcium 9.6 mg/dl (8.5-10.1); Creatinine Clr Calc Pharmacy 115.1 ml/min; Est GFR (African American) 120.1; Est GFR (Non-African American) 103.7; Potassium 3.9 mmol/L (3.5-5.1)
[2020-09-04 09:27] LABS: Phosphorus 3.1 mg/dl (2.5-4.9)
[2020-09-04 12:07] VITALS: BP 131/72; TEMP 98.2
[2020-09-04] MEDS: FERROUS SULFATE 325 MG TAB PO SCH (12:48)
[2020-09-04] MEDS ORDERED: methylPREDNISolone 40 MG in SYRINGE 0 ML IV STA (12:58)
[2020-09-04] MEDS: LORazepam 0.25 MG/0.5 ML VIAL IV PRN ×3 (13:09→23:33)
[2020-09-04] MEDS ORDERED: GLYCOPYRROLATE 0.2 MG/ML VIAL IV PRN (15:28)
[2020-09-04] MEDS ORDERED: MoRPHine SULF/NSS 250 MG/250 ML BTL IV SCH (15:30)
--- NOTE | 2020-09-04 17:42 | Palliative Care Progress Note ---
Date of Service September 04, 2020 Assessment & Plan (1) Dyspnea and respiratory abnormality: Given frequency of morphine use and persistent dyspnea, she would benefit from infusion. I spoke with her daughter Dayanna about this and she is agreeable to this. We discussed other treatments and whether they were contributing to Puja's comfort. Dayanna tells me that they understand Puja is going to and want her to be comfortable. She does seem to have benefit from percussion vest and would like to continue that but would like to stop noncomfort medications. Orders have been adjusted to reflect that conversation. Discussed with RN and Dr Bonds (2) Palliative care encounter: (3) Acute respiratory failure with hypoxia: (4) Squamous cell carcinoma of lung, stage III: Admission and Anticipated Discharge Date Admission Date: August 28, 2020 Subjective Increased work of breathing with tachypnea and tachycardia today. She is awake and alert and feels a little better now. She has had prn ativan and morphine. She has been getting regular prn morphine every two hours. Review of Systems Review of Systems: [place] Symptom Assessment Scale Pain 0/3 Dyspnea 2/3 Anxiety 1/3 Nausea 0/3 Anorexia 2/3 Drowsiness 1/3 Palliative Performance Score 30% Physical Exam Constitutional: + frail appearing; + uncomfortable ENMT: Mouth: + dry oral mucous membranes Respiratory: + labored breathing, + uses accessory muscles and + tachypneic Cardiovascular: Rate/Rhythm: + tachycardic Gastrointestinal (Abdomen): Inspection/Auscultation: abdomen not distended Musculoskeletal: Extremities: + muscle atrophy Skin: flushed Neurologic: not confused Results & Data ([facility]) Vital Signs (Past 12 Hours) Vital Signs Temp Pulse Pulse Resp BP Pulse Ox 09/04/20 14:38 130 H 30 H 79 L 09/04/20 14:37 130 H 30 H 79 L 09/04/20 12:05 98.2 F 72 18 131/72 96 09/04/20 11:02 120 H 30 H 82 L 09/04/20 08:00 98.1 F 94 H 65 18 129/82 09/04/20 07:24 120 H 26 H 85 L 09/04/20 07:18 120 H 26 H 85 L PG Care Time/CCT Total # of Minutes Spent Total Time Spent with Patient: Total time spent is greater than 50% in coordination of care (as documented) at patient's floor/unit and/or counseling patient: total time spent 45 minutes with more than 50% of time spent on prognosis, symptom management, coordination of care Coding Level of Care Code 90774 Subseq Hosp Care Lvl 3 Diagnoses Dyspnea and respiratory abnormality R06.00; R06.89 Palliative care encounter Z51.5 Acute respiratory failure with hypoxia J96.01 Squamous cell carcinoma of lung, stage III C34.91 Laterality: right (1) Squamous cell carcinoma of lung, stage III Laterality: right Qualified Code(s): C34.91 - Malignant neoplasm of unspecified part of right bronchus or lung
[2020-09-05] MEDS: MoRPHine SULFATE 2 MG/ML CARP IV PRN (03:40)
[2020-09-05] MEDS: LEVALBUTEROL 1.25MG/0.5ML NEB INH SCH ×2 (04:12→08:10)
[2020-09-05] MEDS: IPRATROPIUM BROMIDE NEB SOLN 0.02% 2.5 ML VIAL INH SCH ×2 (04:12→08:10)
--- NOTE | 2020-09-05 07:25 | Hospitalist Progress Note ---
Date of Service September 05, 2020 Assessment & Plan (1) Acute respiratory failure with hypoxia: Pneumonia Presented on admission with worsening SOB CTA showed persistent 48 mm right apical pulmonary mass. Persistent mediastinal and hilar lymphadenopathy. Progressive bilateral groundglass pulmonary opacities right greater than left. Received Zosyn and Vanco in the ER Continued steroid and neb treatment Continued IV cefepime and Doxycline and Bactrim DS added -due to development of rash, cefepime and Bactrim were put on hold Sputum cx and blood cx no growth Pulmonary medicine consulted ESR and CRP are elevated, suggestive of an inflammatory process. ANCA, glomerular basement membrane, as well as Fungitell and Legionella urinary antigen are currently pending. Continue Solu-Medrol to 125 mg for potential alveolar hemorrhage or chemotherapeutic pulmonary toxicity. Initially plan was for potential bronchoscopy with BAL. However due to patient's hypoxia, patient is high risk for bronchoscopy. Continued supplemental oxygen titrated to keep saturations at or above 88%. CPAP at night. Please avoid BIPAP since it is not indicated with normal PCO2 Bronchoscopy cancelled due to extreme hypoxia on high flow oxygen supplement Bactrim discontinued for possible rash, but not sure if the rash was due to cefepime, therefore cefepime was also put on hold IV solumedrol was changed to 40mg TID Will discuss case with pulm about next step since pt continue to be on high flow oxygen Started patient on aztreonam for gram-negative coverage (09/02/20) Discussed with pulmonology, palliative medicine consult 09/03 Overnight patient requiring more oxygen, this morning tachypneic, using accessory muscles to breathe Patient received IV morphine Chest x-ray, ABG reviewed this morning Pulmonology and palliative medicine both contacted Family also contacted and visited the patient Continue current treatment, will try chest PT/vest, morphine 2-4 mg for moderate to severe dyspnea Family wishes for the patient to be comfortable, however not ready to withdraw treatment either 09/04 Patient again with episodes of respiratory distress, tachycardia, tachypnea Discussed again with family, and palliative medicine Appreciate palliative medicine input 09/05 As patient was in respiratory distress in the past 2 days, further discussion about comfort care was held yesterday (09/04) Currently patient is on morphine drip and in no distress, not responsive to voice or touch Family present at the bedside Appreciate palliative medicine input Non-squamous cell carcinoma of lung, stage IIIc: Completed chemotherapy in June Plan to start immunotherapy sometime in the near future Continue outpatient follow up with oncology - Dr. Castro Sent message to oncology office to notify them that patient is currently hospitalized. Anemia Mostly due to chemotherapy Current Hgb 10.6 Continue monitor CBC COPD (chronic obstructive pulmonary disease): Pt was discharged on 2L NC in the last admission Continue high oxygen supplement Continue IV steroid Continued Neb treatment , will ow stop for comfort care Tried to keep oxygen saturation above 88% while inpt , now comfort care DM type 2 Most recent hba1c 6.6 on 08/22/20 Continue insulin sliding scale while on steroid Continue monitor BS DVT px on Lovenox Code Status : DNR/ DNI - discussed with the pt, her family, palliative medicine, and pulmonology COMFORT CARE Admission and Anticipated Discharge Date Admission Date: August 28, 2020 Subjective Seen for respiratory failure, pneumonia Patient has been in respiratory distress for the past 2 days, tachypneic tachycardic, palliative medicine closely following Discussed with family in detail, and they wish for the patient to be comfortable, orders were changed yesterday to reflect that Pt is currently on morphine drip She is lying in bed, appears in no distress, family at the bedside Review of Systems Review of Systems: Unobtainable due to cognitive status Physical Exam Physical Exam: General-elderly female, laying in bed, on nonrebreather, in no distress, not responsive Head- atraumatic Eyes- PERRL, EOMI, Neck- supple, no JVD Lungs- +Decreased BS, + diffuse rhonchi, port in left chest wall Heart- + tachycardic Abdomen- normal bowel sounds, soft, nontender Extremities- hands and feet cool to touch Neuro- nonresponsive to voice or touch Skin- warm & dry Results & Data Results & Data ([facility]) Vital Signs (Past 12 Hours) Vital Signs Pulse Pulse Resp Pulse Ox 09/05/20 03:13 122 H 32 H 84 L 09/05/20 01:00 112 H 87 L 09/05/20 00:00 107 H 83 L 09/04/20 23:16 114 H 30 H 77 L 09/04/20 23:00 109 H 79 L 09/04/20 22:00 112 H 80 L 09/04/20 21:00 112 H 80 L 09/04/20 20:00 118 H 77 L Laboratory Results 09/04/20 09/04/20 09/04/20 Range/Units 08:30 08:30 07:35 WBC 20.53 H (4.8-10.8) K/uL RBC 3.42 L (4.2-5.4) M/uL Hgb 10.6 L (12.0-16.0) g/dL Hct 33.4 L (37-47) % MCV 97.7 (80-100) fL MCH 31.0 (25-34) pg MCHC 31.7 L (32-36) g/dL RDW Std Deviation 63.5 H (36.4-46.3) fL RDW Coeff of Teresa 17.7 H (11.5-14.5) % Plt Count 297 (130-400) K/uL MPV 10.7 H (7.4-10.4) fL Sodium 135 L (136-145) mmol/L Potassium 3.9 (3.5-5.1) mmol/L Chloride 99 (98-107) mmol/L Carbon Dioxide 32 (21-32) mmol/L Anion Gap 5.0 (3-11) BUN 24 H (7-18) mg/dl Creatinine 0.48 L (0.6-1.2) mg/dl Est Cr Clr Drug Dosing 115.1 ml/min Est GFR ( Amer) 120.1 Est GFR (Non-Af Amer) 103.7 BUN/Creatinine Ratio 49.4 H (10-20) Glucose 109 H (70-99) mg/dl POC Glucose 126 H (70-99) mg/dl Calcium 9.6 (8.5-10.1) mg/dl Phosphorus 3.1 (2.5-4.9) mg/dl Magnesium 2.0 (1.8-2.4) mg/dl Medications Administered Current Inpatient Medications Acetaminophen (Acetaminophen 325 Mg Tab) 650 mg PO Q4H PRN PRN Reason: Pain or Fever Stop: 09/27/20 02:06 Last Admin: 08/31/20 14:08 Dose: 650 mg Documented by: Dextrose (Dextrose 50% 50 Ml Syringe) 25 - 50 ml IV UD PRN; Protocol PRN Reason: Hypoglycemia Protocol Stop: 09/27/20 02:06 Glucagon (Glucagon For Inj 1 Mg Vial) 1 mg SQ UD PRN; Protocol PRN Reason: Hypoglycemia Protocol Stop: 09/27/20 02:06 Glucose (Glucose 10 Tabs/Tube) 4 - 8 tabs PO UD PRN; Protocol PRN Reason: Hypoglycemia Protocol Stop: 09/27/20 02:06 Glucose (Glucose 40% Gel 15 Gm Tube) 15 - 30 gm PO UD PRN; Protocol PRN Reason: Hypoglycemia Protocol Stop: 09/27/20 02:06 Glycopyrrolate (Glycopyrrolate 0.2 Mg/Ml Vial) 0.2 mg IV Q4H PRN PRN Reason: tracheal secretions Stop: 10/04/20 15:27 Heparin Sodium (Porcine) (Heparin 100 Unit/Ml 5ml Flush) 5 ml FLUSH PRN PRN PRN Reason: Flush Stop: 10/01/20 01:07 Last Admin: 09/01/20 14:19 Dose: 5 ml Documented by: Promethazine HCl 12.5 mg/ (Sodium Chloride) 50.5 mls @ 202 mls/hr IV Q6H PRN PRN Reason: Nausea And Vomiting Stop: 09/27/20 02:06 Lorazepam (Ativan) 0.25 mg in 0.5 mls @ 0.5 mls/min IV Q6H PRN PRN Reason: Anxiety Stop: 09/30/20 03:10 Last Admin: 09/04/20 23:33 Dose: 0.5 mls/min Documented by: Methylprednisolone 40 mg/ (Syringe) 0.64 mls @ 1.5 mls/min IV TID ROSANNE Stop: 10/01/20 05:29 Last Admin: 09/04/20 20:02 Dose: 1.5 mls/min Documented by: Morphine Sulfate (Morphine Sulf/Nss) 250 mg in 250 mls @ 10 mls/hr IV .Q25H ROSANNE; Protocol Stop: 09/18/20 15:29 Last Titration: 09/05/20 04:42 Dose: 10 mg/hr, 10 mls/hr Documented by: Ipratropium Cantrall (Ipratropium [place]all Neb Soln 0.02% 2.5 Ml Vial) 0.5 mg INH Q4R ROSANNE Stop: 09/28/20 22:59 Last Admin: 09/05/20 04:12 Dose: Not Given Documented by: Levalbuterol HCl (Levalbuterol 1.25mg/0.5ml Neb) 1.25 mg INH Q4R ROSANNE Stop: 09/28/20 22:59 Last Admin: 09/05/20 04:12 Dose: Not Given Documented by: Miscellaneous (Carbohydrates For Hypoglycemia ) 15 - 30 gm PO UD PRN PRN Reason: Hypoglycemia Protocol Stop: 09/27/20 02:06 Miscellaneous Information (Cefepime Consult Active) 1 ea N/A UD PRN PRN Reason: Consult Stop: 09/27/20 08:59 Morphine Sulfate (Morphine Sulfate 2 Mg/Ml Carp) 2 mg IV Q1H PRN PRN Reason: Pain or moderate dyspnea Stop: 09/14/20 03:05 Last Admin: 09/05/20 03:40 Dose: 2 mg Documented by:
[2020-09-05 08:13] VITALS: PULSE 112; O2SAT 93
[2020-09-05] MEDS: methylPREDNISolone 40 MG in SYRINGE 0 ML IV SCH (08:57)
[2020-09-05] MEDS ORDERED: MoRPHine SULFATE 4 MG/ML 1 ML CARP\\VIAL IV STA (09:15)
[2020-09-05] MEDS: LORazepam 0.25 MG/0.5 ML VIAL IV PRN (09:18)
--- NOTE | 2020-09-05 17:46 | Hospitalist Progress Note ---
Date of Service September 05, 2020 Assessment & Plan Admission and Anticipated Discharge Date Admission Date: August 28, 2020 Subjective NOTE Notified by nursing staff that patient ceased to breathe at 1225. I examined the patient, there were no breath sounds,and no heart sounds for at least 1min, no radial or carotid pulse, no response to stimuli, pupils were fixed and dilated. Family at the bedside MD [place] Results & Data Results & Data ([facility]) Vital Signs (Past 12 Hours) Vital Signs Pulse Pulse Resp Pulse Ox 09/05/20 08:11 112 H 32 H 93 09/05/20 07:30 121 H
--- NOTE | 2020-09-05 17:50 | Discharge Summary ---
Date of Service September 05, 2020 Admission HPI Per Admitting Provider History obtained from patient, family, and records. Medical history significant for COPD/asthma, hyperlipidemia, NSCLC sp chemoradiation, DM2 on oral medications, chronic anemia (recent baseline hemoglobin of 7), past tobacco abuse. Last confinement August 22-2020 for sepsis secondary to bibasilar pneumonia. Vancomycin and Zosyn later discontinued given no growth on CS. Patient discharged on Levaquin course. Home O2 arrangements to be made given hypoxemia during confinement as per patient. Patient noted exertional shortness of breath upon arriving home without chest pain. Cough symptoms the same occasionally productive of junky sputum. Denies aspiration. Denies fluid retention. Worsening symptoms despite completion of antibiotic Rx. At the ER, O2 sats noted to be 70s at some point. Patient received vancomycin and Zosyn for sepsis. Medical History as above Surgical History : BTL, cholecystectomy, tonsillectomy/adenoidectomy, A port Family History : DM, heart disease Personal/Social history : Past tobacco abuse, no EtOH intake, prior factory work Admission Exam Per Admitting Provider GENERAL: Slightly uncomfortable, minimal respiratory distress SKIN: Pallor , warm HEENT: Pale palpebral conjunctivae, no ptosis, dry buccal mucosa, nasal cannula in place NECK : Supple, no tenderness CHEST : A port left chest wall, decreased breath sounds, no tenderness HEART : Tachycardic, systolic murmur ABDOMEN: Some distention, nontender EXTREMITIES : No LE swelling/tenderness, no other conspicuous deformities noted NEUROLOGIC : Coherent, no facial asymmetry, no other gross focality Principal Diagnosis Respiratory failure secondary to pneumonia versus pulmonary toxicity to chemotherapy versus alveolar hemorrhage in the setting of non-small cell lung cancer stage III Discharge Exam Patient lying in bed, ceased to breathe at 1225 by nursing staff On my exam there are no breath sounds, and no heart sounds for at least 1 minute, no radial or carotid pulses, no response to stimuli, pupils found fixed and dilated. Discharge Data Allergies Allergy/AdvReac Type Severity Reaction Status Date / Time cephalexin Allergy Intermediate ITCHING Verified 08/22/20 00:43 Sulfa (Sulfonamide Allergy Intermediate Rash Verified 09/01/20 04:51 Antibiotics) sULFA Allergy Rash Uncoded 09/01/20 04:51 Consultations 08/27/20 23:39 ED Decision to Admit Stat 08/28/20 02:07 Consult Case Management - Discharge Planning Routine 08/29/20 07:39 Consult Pulmonology Routine 09/02/20 09:28 Consult Palliative Care Routine Ordered Studies 08/27/20 22:03 CT angio chest PE protocol Urgent IMPRESSION: 1. No evidence of acute pulmonary embolism 2. Persistent 48 mm right apical pulmonary mass 3. Persistent mediastinal and hilar lymphadenopathy 4. Progressive bilateral groundglass pulmonary opacities right greater than left. The findings are nonspecific but could represent a multifocal pneumonia. Clinical correlation advocated 5. Pulmonary emphysema Hospital Course (1) Acute respiratory failure with hypoxia: Pneumonia Presented on admission with worsening SOB CTA showed persistent 48 mm right apical pulmonary mass. Persistent mediastinal and hilar lymphadenopathy. Progressive bilateral groundglass pulmonary opacities right greater than left. Received Zosyn and Vanco in the ER Continued steroid and neb treatment Continued IV cefepime and Doxycline and Bactrim DS added -due to development of rash, cefepime and Bactrim were put on hold Sputum cx and blood cx no growth Pulmonary medicine consulted ESR and CRP are elevated, suggestive of an inflammatory process. ANCA, glomerular basement membrane, as well as Fungitell and Legionella urinary antigen are currently pending. Continue Solu-Medrol to 125 mg for potential alveolar hemorrhage or chemotherapeutic pulmonary toxicity. Initially plan was for potential bronchoscopy with BAL. However due to patient's hypoxia, patient is high risk for bronchoscopy. Continued supplemental oxygen titrated to keep saturations at or above 88%. CPAP at night. Please avoid BIPAP since it is not indicated with normal PCO2 Bronchoscopy cancelled due to extreme hypoxia on high flow oxygen supplement Bactrim discontinued for possible rash, but not sure if the rash was due to cefepime, therefore cefepime was also put on hold Started patient on aztreonam for gram-negative coverage (09/02/20) Discussed with pulmonology, palliative medicine consult 09/03 Overnight patient requiring more oxygen, this morning tachypneic, using accessory muscles to breathe Patient received IV morphine Chest x-ray, ABG reviewed this morning Pulmonology and palliative medicine both contacted Family also contacted and visited the patient Continue current treatment, will try chest PT/vest, morphine 2-4 mg for moderate to severe dyspnea Family wishes for the patient to be comfortable, however not ready to withdraw treatment yet 09/04 Patient again with episodes of respiratory distress, tachycardia, tachypnea Discussed again with family, and palliative medicine Appreciate palliative medicine input 09/05 As patient was in respiratory distress in the past 2 days, further discussion about comfort care was held yesterday (09/04) Currently patient is on morphine drip and in no distress, not responsive to voice or touch Family present at the bedside Appreciate palliative medicine input Patient ceased to breathe at 12:25, on September 05 and was pronounced , family was present at the bedside Non-squamous cell carcinoma of lung, stage IIIc: Completed chemotherapy in June Plan was to start immunotherapy sometime in the near future Pt follows with oncologist - Dr. Castro Sent message to oncology office to notify them that patient was currently hospitalized. Anemia Mostly due to chemotherapy Current Hgb 10.6 Continue monitor CBC COPD (chronic obstructive pulmonary disease): Pt was discharged on 2L NC in the last admission Continued high oxygen supplement Continued IV steroid Continued Neb treatment Tried to keep oxygen saturation above 88% while inpt DM type 2 Most recent hba1c 6.6 on 08/22/20 Continued insulin sliding scale while on steroid Continued to monitor BS DVT px on Lovenox Code Status : DNR/ DNI - discussed with the pt, her family, palliative medicine, and pulmonology COMFORT CARE Patient ceased to breathe at 12:25 on September 05, patient was on comfort care and family was present at the bedside. Total Time Total Time Spent Total Time Spent (In Minutes): 35 Total Time Includes: Examination of the Patient Discharge Plan Discharge Items Patient Disposition:
[2020-09-07 00:01] LABS: ANCA Screen Negative (Negative); Anti-Glom Basement Antibody <1.0 AI (<1.0); Fungitell (1-3)-B-D-Glucan <31
--- NOTE | 2020-09-09 13:36 | Coding Query ---
CODING QUERY To promote full compliance with coding requirements relating to patient care, provider participation is requested in all cases of price lister uncertainty. Please assist us with the question(s) below: Coding Question(s): Per Pulmonary Consult Progress Notes, patient was given "Bactrim due to possibility of PCP." This does not appear on your documentation. Please clarify below: ( ) Patient possibly had PCP (Pneumocystis Pneumonia) ( ) PCP was Ruled Out ( ) Other Please Explain: PCP was considered but was not confirmed Thank you Jerry Jim Principal Diagnosis: "that condition established after study, to be chiefly responsible for occasioning the admission of the patient to the hospital for care." Co-Existing Principal Diagnosis: "when two or more diagnoses equally meet the criteria for principal diagnosis as determined by the circumstances of admission, diagnostic work up, and/or therapy provided, and the Alphabetic Index, Tabular List, or another coding guideline does not provide sequencing direction, any one of the diagnoses may be sequenced first." "When the physician has documented what appears to be a current diagnosis in the body of the record, but has not included the diagnosis in the final diagnostic statement, the physician should be asked whether the diagnosis should be added." (Source Coding [facility] 2 QTR90. p3-4) [facility]
== END 2020-09-05 13:38 | disposition expired | DRG 193 ==
LOC: ED 21:16 → 2W 08-28 00:54 → SUATTDRO 08-28 00:54 → 2W 08-28 01:24 → 2S 08-30 00:26 → 2E 08-31 01:31